=== PATIENT | female | born 1955 | race Caucasian/White ===

== ENCOUNTER 2016-12-23 10:07 | Inpatient (IN) | payer BC ==
[~2016-12-23 10:07] MED LIST: Lidocaine 1%/Sod Bicarbonate in NS 8.4% 1 ML Syringe IV PRN; Morphine 2 MG/ML Syringe IVPUSH PRN; Sodium Chloride 0.9% 10 ML Syringe FLUSH PRN
[2016-12-23] MEDS: Lactated Ringers 1,000 ML IV SCH ×2 (11:20→16:47)
--- NOTE | 2016-12-23 11:21 | PCM.PREANE ---
Preanesthetic Assessment - Anesthesia/Transfusion/Family Hx Anesthesia History: Prior Anesthesia Without Reaction Type of Anesthesia Reaction: Unknown Family History of Anesthesia Reaction: No Transfusion History: No Prior Transfusion(s) Type of Transfusion Reactions: Reports: Unknown Intubation History: Unknown - Review of Systems General: No Symptoms Cardiovascular: Other (HTN controlled with medications ) Gastrointestinal: No symptoms Neurological: No Symptoms, Other (Rheumatiod arthritis- has not seen a filling carrier or take any autoimmune medications. She was just "told i have RA but have not done anything about it") Other: Reports: Liver Problems ("fatty liver"), Thyroid Problems ( hypothyroidism ) - Physical Assessment NPO Status Date: 12/22/16 NPO Status Time: 22:00 Pulse: 73 O2 Sat by Pulse Oximetry: 96 Respiratory Rate: 16 Blood Pressure: 131/75 Temperature: 36.5 C Height: 1.63 m Weight: 80 kg ASA Class: 2 Mental Status: Alert & Oriented x3 Airway Class: Mallampati = 1 Dentition: Reports: Normal Dentition Thyro-Mental Finger Breadths: 3 Mouth Opening Finger Breadths: 3 ROM/Head Extension: Full Lungs: Clear to auscultation, Normal respiratory effort Cardiovascular: Regular Rate, Regular Rhythm - Lab Values: Laboratory Last Values MRSA (PCR) Negative 12/06/16 13:49 - Allergies Allergies/Adverse Reactions: Allergies Allergy/AdvReac Type Severity Reaction Status Date / Time erythromycin base Allergy Drowsiness Verified 12/19/16 16:34 Sulfa (Sulfonamide Allergy urinary Verified 12/19/16 16:34 Antibiotics) urgency - Blood Blood Available: No Product(s) Available: None - Anesthesia Plan Beta Lizett: Metoprolol Med Last Dose Date: 12/23/16 Med Last Dose Time: 08:30 - Acknowledgements Anesthesia Type Planned: Spinal (with duramorph ) Pt an Appropriate Candidate for the Planned Anesthesia: Yes Alternatives and Risks of Anesthesia Discussed w Pt/Guardian: Yes Pt/Guardian Understands and Agrees with Anesthesia Plan: Yes PreAnesthesia Questionnaire HEENT History: Reports: Impaired vision Other HEENT History: wears glasses Cardiovascular History: Reports: Hypertension Respiratory History: Reports: None [employer]ER History: Reports: Other (see below) Other OB/BYN History: breast cyst Musculoskeletal History: Reports: RA Neurological History: Reports: None Psychiatric History: Reports: None Endocrine/Metabolic History: Reports: Hypothyroidism Hematologic History: Reports: None Immunologic History: Reports: None Oncologic (Cancer) History: Reports: None Dermatologic History: Reports: None - Past Surgical History Head Surgeries/Procedures: Reports: None HEENT Surgical History: Reports: Adenoidectomy, Tonsillectomy GI Surgical History: Reports: Colonoscopy, EGD Female Surgical History: Reports: Breast biopsy, D&C, Hysterectomy - SUBSTANCE USE Smoking Status *Q: Never Smoker Second Hand Smoke Exposure: No Recreational Drug Use History: No - HOME MEDS Home Medications: Home Meds Aspirin 81 mg PO DAILY 12/19/16 [History] Celecoxib [CeleBREX] 400 mg PO DAILY 12/19/16 [History] Cinnamon Bark [Cinnamon] 500 mg PO DAILY 12/19/16 [History] Cranberry Conc/C/Bacill Coag [Cranberry Tablet] 1 tab PO DAILY 12/19/16 [History ] Hydrochlorothiazide [Hydrochlorothiazide] 25 mg PO DAILY 12/19/16 [History] Levothyroxine Sodium [Levothyroxine Sodium] 75 mcg PO DAILY 12/19/16 [History] Losartan [Cozaar] 50 mg PO DAILY 12/19/16 [History] MV,Ca,Min/FA/Herbal No.157 [Estroven Max Strength Caplet] 1 tab PO DAILY [History] Metoprolol Succinate 25 mg PO DAILY 12/19/16 [History] Potassium Chloride [Potassium Chloride] 20 meq PO TID 12/19/16 [History] Rosuvastatin [Crestor] 5 mg PO DAILY 12/19/16 [History] Turmeric Root Extract [Turmeric] 500 mg PO DAILY 12/19/16 [History] Ubidecarenone [Coq-10] 100 mg PO DAILY 12/19/16 [History] - CURRENT (IN HOUSE) MEDS Current Meds: Current Medications Aspirin (Ecotrin) 325 mg PO BID [facility] Morphine Sulfate 8 mg/Epinephrine HCl 0.3 mg/Cefuroxime Sodium 750 mg/Ketorolac Tromethamine 30 mg/Sodium Chloride 27.9 ml 0 mg .XX ONETIME ONE Stop: 12/23/16 12:31 Cyclobenzaprine HCl (Flexeril) 10 mg PO TID PRN PRN Reason: Spasms Famotidine (Pepcid) 20 mg PO Q12H [facility] Lactated Ringer's (Ringers, Lactated) 1,000 mls @ 125 mls/hr IV ASDIRECTED REPLACED BY [facility] Lidocaine/Sodium Bicarbonate (Buffered Lidocaine 1% In Ns 8.4%) 0.25 ml IV ONETIME PRN PRN Reason: Prior to IV Start Stop: 12/23/16 18:00 Morphine Sulfate (Morphine) 2 mg IVPUSH Q2H PRN PRN Reason: Breakthrough Pain Multivitamins (Thera) 1 each PO WITHBREAKFAST REPLACED BY [facility] Naloxone HCl (Narcan) 0.1 mg IVPUSH Q5M PRN PRN Reason: Oversedation Stop: 12/23/16 13:46 Oxycodone/Acetaminophen (Percocet 325-5 Mg) 1 - 2 tab PO Q4H PRN PRN Reason: Pain Sodium Chloride (Saline Flush) 10 ml FLUSH ASDIRECTED PRN PRN Reason: Keep Vein Open
[2016-12-23] MEDS ORDERED: Midazolam 1 MG/ML 2 ML SDV ONE (11:56)
[2016-12-23] MEDS ORDERED: Ondansetron 4 MG/2 ML SDV ONE (11:56)
[2016-12-23] MEDS ORDERED: Propofol 200 MG/20 ML SDV ONE ×3 (11:56→13:54)
[2016-12-23] MEDS ORDERED: fentaNYL 250 MCG/5 ML SDV ONE (11:56)
[2016-12-23] MEDS ORDERED: Morphine PF 10 MG/10 ML SDV ONE (11:57)
[2016-12-23] MEDS ORDERED: fentaNYL 100 MCG/2 ML SDV ONE (11:57)
[2016-12-23] MEDS ORDERED: Sodium Chloride 0.9% 10 ML ONE (12:05)
[2016-12-23] MEDS ORDERED: Lactated Ringers 1,000 ML ONE ×2 (12:05→14:00)
[2016-12-23] MEDS ORDERED: ceFAZolin 1 GM Vial ONE ×2 (12:05)
[2016-12-23] MEDS ORDERED: Phenylephrine/Normal Saline 100 MCG/ML 10 ML Syringe ONE ×2 (13:23→14:14)
[2016-12-23] MEDS ORDERED: Naloxone 0.4 MG/ML SDV IVPUSH PRN (13:30)
[2016-12-23] MEDS ORDERED: diphenhydrAMINE 50 MG/ML SDV IVPUSH PRN (13:39)
[2016-12-23] MEDS ORDERED: Ondansetron 4 MG/2 ML SDV IVPUSH PRN (13:39)
[2016-12-23] MEDS ORDERED: fentaNYL 100 MCG/2 ML SDV IVPUSH PRN (13:39)
[2016-12-23] MEDS: Iodine/Sodium Iodide 2% Tincture 30 ML Bottle ONE ×2 (13:48→14:02)
[2016-12-23] MEDS: ceFAZolin 1 GM Vial ONE ×2 (13:49→14:07)
[2016-12-23] MEDS: Morphine 8 MG, EPINEPHrine 0.3 MG, Cefuroxime 750 MG, Ketorolac 30 MG, Sodium Chloride ... ONE ×10 (13:50→14:11)
[2016-12-23] MEDS: Bupivacaine 0.25% 30 ML SDV ONE ×2 (13:56→14:11)
[2016-12-23] MEDS ORDERED: HYDROmorphone 0.5 MG/0.5 ML Syringe IVPUSH PRN (14:30)
[2016-12-23] MEDS ORDERED: ePHEDrine/Normal Saline 25 MG/5 ML Syringe ONE (14:43)
--- NOTE | 2016-12-23 14:54 | PCM.POSTAN ---
POST ANESTHESIA ASSESSMENT - MENTAL STATUS Mental Status: alert, oriented - VITAL SIGNS Pulse Rate: 88 SaO2: 95 Resp Rate: 16 Blood Pressure: 94/54 Temperature: 36.9 C - RESPIRATORY Respiratory Status: respiratory rate WNL, airway patent, O2 saturation stable - CARDIOVASCULAR CV Status: pulse rate WNL, blood pressure stable - GASTROINTESTINAL GI Status: no symptoms - PAIN Pain Score: 0 - POST OP HYDRATION Hydration Status: adequate & stable
--- NOTE | 2016-12-23 15:17 | CR ---
Right knee: AP and lateral views of the right knee were obtained. Comparison: No previous study. Knee prosthesis is seen. Components are aligned. There is air seen within the joint and within the soft tissues. Underlying bony structures are intact. Impression: 1. Satisfactory postop radiographic appearance of recently placed right knee prosthesis. Diagnostic code #2
--- NOTE | 2016-12-23 17:06 | PCM.CONSN ---
[id number] hypertension, hypothyroid has had complaint of right knee pain, she is post op RTKA. She has no complaints post op. Functional Status: Reports: pain controlled, tolerating diet, urinating - Review of Systems General: Reports: No Symptoms HEENT: Reports: no symptoms Pulmonary: Reports: no symptoms Cardiovascular: Reports: No Symptoms Gastrointestinal: Reports: No symptoms Genitourinary: Reports: no symptoms Musculoskeletal: Reports: no symptoms Skin: Reports: no symptoms Neurological: Reports: No Symptoms Psychiatric: Reports: no symptoms - Patient Data Vitals - most recent: Last Vital Signs Temp 36.2 C 12/23/16 15:55 Pulse 79 12/23/16 15:42 Resp 14 12/23/16 15:55 BP 101/78 12/23/16 16:30 Pulse Ox 97 12/23/16 16:33 Weight - most recent: 80 kg I&O - last 24 hours: Intake & Output 12/23/16 12/23/16 12/23/16 06:59 14:59 22:59 Intake Total 300 Output Total 255 150 Balance -255 150 Med Orders - Current: Current Medications Aspirin (Ecotrin) 325 mg PO BID [facility] Cyclobenzaprine HCl (Flexeril) 10 mg PO TID PRN PRN Reason: Spasms Diphenhydramine HCl (Benadryl) 25 mg IVPUSH Q6H PRN PRN Reason: itching Stop: 12/23/16 20:00 Famotidine (Pepcid) 20 mg PO Q12H [facility] Hydrochlorothiazide (Hydrochlorothiazide) 25 mg PO DAILY [facility] Lactated Ringer's (Ringers, Lactated) 1,000 mls @ 125 mls/hr IV ASDIRECTED [facility] Last Admin: 12/23/16 16:47 Dose: 125 mls/hr Levothyroxine Sodium (Levothyroxine) 75 mcg PO DAILY [facility] Losartan Potassium (Cozaar) 50 mg PO DAILY [facility] Metoprolol Succinate (Toprol Xl) 25 mg PO DAILY [facility] Morphine Sulfate (Morphine) 2 mg IVPUSH Q2H PRN PRN Reason: Breakthrough Pain Multivitamins (Thera) 1 each PO WITHBREAKFAST [facility] Ondansetron HCl (Zofran) 4 mg IVPUSH ONETIME PRN PRN Reason: Nausea/Vomiting Stop: 12/23/16 18:00 Oxycodone/Acetaminophen (Percocet 325-5 Mg) 1 - 2 tab PO Q4H PRN PRN Reason: Pain Mv,Ca,Min/Fa/Herbal No.157 [Estroven Max Strength Caplet] 0 each PO DAILY [facility] Ubidecarenone 100 Mg 0 each PO DAILY [facility] Potassium Chloride (Klor-Con M20) 20 meq PO TID [facility] Rosuvastatin Calcium (Crestor) 5 mg PO DAILY [facility] Sodium Chloride (Saline Flush) 10 ml FLUSH ASDIRECTED PRN PRN Reason: Keep Vein Open Discontinued Medications Bupivacaine HCl (Marcaine 0.25%) Confirm Administered Dose 30 ml .ROUTE .STK- MED ONE Stop: 12/23/16 11:11 Last Admin: 12/23/16 14:11 Dose: 30 ml Cefazolin Sodium (Ancef) Confirm Administered Dose 2 gm .ROUTE .STK-MED ONE Stop: 12/23/16 11:10 Last Admin: 12/23/16 14:07 Dose: 2 gm Cefazolin Sodium (Ancef) Confirm Administered Dose 1 gm .ROUTE .STK-MED ONE Stop: 12/23/16 12:06 Cefazolin Sodium (Ancef) Confirm Administered Dose 1 gm .ROUTE .STK-MED ONE Stop: 12/23/16 12:06 Morphine Sulfate 8 mg/Epinephrine HCl 0.3 mg/Cefuroxime Sodium 750 mg/Ketorolac Tromethamine 30 mg/Sodium Chloride 27.9 ml 0 mg .XX ONETIME ONE Stop: 12/23/16 12:31 Last Admin: 12/23/16 14:11 Dose: 788.3 mg Ephedrine Sulfate (Ephedrine In Ns) Confirm Administered Dose 25 mg .ROUTE .STK- MED ONE Stop: 12/23/16 14:44 Fentanyl (Sublimaze) Confirm Administered Dose 250 mcg .ROUTE .STK-MED ONE Stop: 12/23/16 11:57 Fentanyl (Sublimaze) Confirm Administered Dose 100 mcg .ROUTE .STK-MED ONE Stop: 12/23/16 11:58 Fentanyl (Sublimaze) 50 mcg IVPUSH Q5M PRN PRN Reason: pain Stop: 12/23/16 20:00 Hydromorphone HCl (Dilaudid) 0.5 mg IVPUSH Q15M PRN PRN Reason: Pain (severe 7-10) Stop: 12/23/16 14:46 Sodium Chloride (Normal Saline) Confirm Administered Dose 10 mls @ as directed .ROUTE .STK-MED ONE Stop: 12/23/16 12:06 Lactated Ringer's (Ringers, Lactated) Confirm Administered Dose 1,000 mls @ as directed .ROUTE .STK-MED ONE Stop: 12/23/16 12:06 Lactated Ringer's (Ringers, Lactated) Confirm Administered Dose 1,000 mls @ as directed .ROUTE .STK-MED ONE Stop: 12/23/16 14:01 Iodine (Iodine 2% Mild Tincture) Confirm Administered Dose 30 ml .ROUTE .STK- MED ONE Stop: 12/23/16 11:10 Last Admin: 12/23/16 14:02 Dose: 18 ml Lidocaine/Sodium Bicarbonate (Buffered Lidocaine 1% In Ns 8.4%) 0.25 ml IV ONETIME PRN PRN Reason: Prior to IV Start Stop: 12/23/16 18:00 Last Admin: 12/23/16 11:20 Dose: 0.25 ml Midazolam HCl (Versed 1 Mg/Ml) Confirm Administered Dose 2 mg .ROUTE .STK-MED ONE Stop: 12/23/16 11:57 Morphine Sulfate (Duramorph Pf) Confirm Administered Dose 10 mg .ROUTE .STK-MED ONE Stop: 12/23/16 11:58 Naloxone HCl (Narcan) 0.1 mg IVPUSH Q5M PRN PRN Reason: Oversedation Stop: 12/23/16 13:46 Ondansetron HCl (Zofran) Confirm Administered Dose 4 mg .ROUTE .STK-MED ONE Stop: 12/23/16 11:57 Phenylephrine HCl (Phenylephrine In Ns 100 Mcg/Ml) Confirm Administered Dose 1 mg .ROUTE .STK-MED ONE Stop: 12/23/16 13:24 Phenylephrine HCl (Phenylephrine In Ns 100 Mcg/Ml) Confirm Administered Dose 1 mg .ROUTE .STK-MED ONE Stop: 12/23/16 14:15 Propofol (Diprivan 20 Ml) Confirm Administered Dose 200 mg .ROUTE .STK-MED ONE Stop: 12/23/16 11:57 Propofol (Diprivan 20 Ml) Confirm Administered Dose 200 mg .ROUTE .STK-MED ONE Stop: 12/23/16 12:04 Propofol (Diprivan 20 Ml) Confirm Administered Dose 200 mg .ROUTE .STK-MED ONE Stop: 12/23/16 13:55 Tranexamic Acid (Cyklokapron) Confirm Administered Dose 1,000 mg .ROUTE .STK- MED ONE Stop: 12/23/16 11:10 Last Admin: 12/23/16 14:19 Dose: 1,000 mg - Exam Quality Assessment: urine catheter, DVT prophylaxis General: alert, oriented, cooperative, no acute distress HEENT: Pupils equal, Pupils reactive Neck: supple, trachea midline Lungs: Normal respiratory effort Cardiovascular: Regular Rate, Regular Rhythm Abdomen: bowel sounds present, soft, no tenderness, no distension (Female) Exam: Deferred Extremities: normal pulses Skin: warm Wound/Incisions: dressing dry and intact Neurological: no new focal deficit, normal speech Psy/Mental Status: alert, normal affect, normal mood Consult PN Assessment/Plan Procedures: Procedures CULTURE AEROBIC IDENTIFY (08/19/14) HEPATOBIL SYST IMAGE W/DRUG (02/01/15) MICROBE SUSCEPTIBLE LACI (08/19/14) URINALYSIS AUTO W/O SCOPE (02/15/15) URINE BACTERIA CULTURE (08/19/14) (1) HTN (hypertension) SNOMED Code(s): 27173592 Code(s): I10 - ESSENTIAL (PRIMARY) HYPERTENSION Priority: Medium Qualifiers: Hypertension type: essential hypertension Qualified Code(s): I10 - Essential (primary) hypertension (2) Hypothyroid SNOMED Code(s): 75238622 Code(s): E03.9 - HYPOTHYROIDISM, UNSPECIFIED Priority: Medium Qualifiers: Hypothyroidism type: unspecified Qualified Code(s): E03.9 - Hypothyroidism , unspecified (3) Osteoarthritis SNOMED Code(s): 976616764 Code(s): M19.90 - UNSPECIFIED OSTEOARTHRITIS, UNSPECIFIED SITE Priority: High Qualifiers: Osteoarthritis location: knee Osteoarthritis type: primary Laterality: right Qualified Code(s): M17.11 - Unilateral primary osteoarthritis, right knee (4) S/P total knee arthroplasty SNOMED Code(s): 5310595042368, 568692875, 7660322889123 Code(s): Z96.659 - PRESENCE OF UNSPECIFIED ARTIFICIAL KNEE JOINT Priority: High Qualifiers: Laterality: right Qualified Code(s): Z96.651 - Presence of right artificial knee joint Problem List Initiated/Reviewed/Updated: Yes Plan: Impression: Right knee osteoarthritis S/P right total knee arthroplasty Chronic Hypertension Hypothyroidism Plan: Pain mgt per Ortho Home meds DVT per Ortho PT/OT post op care
[2016-12-23] MEDS: ceFAZolin 2 GM in Premix Bag 1 BAG IV SCH (19:20)
[2016-12-23] MEDS: [UNRECOGNIZED DRUG - OTHER] PO SCH (21:40)
[2016-12-23] MEDS: Famotidine 20 MG Tab PO SCH (21:40)
[2016-12-24] MEDS: Acetaminophen/oxyCODONE 325-5 MG Tab PO PRN ×4 (00:27→12:43)
[2016-12-24] MEDS: ceFAZolin 2 GM in Premix Bag 1 BAG IV SCH ×2 (03:17→10:45)
[2016-12-24] MEDS ORDERED: LEVOTHYROXINE 75 MCG PO SCH (06:00)
--- NOTE | 2016-12-24 06:15 | PCM.CONSN ---
- General Info Date of Service: 12/24/16 Admission Dx/Problem (Free Text): S/P Rt TKA with Dr. Gomez, POD #1 Doing well, pain controlled, mild nausea but resolved VSS Functional Status: Reports: pain controlled, tolerating diet, ambulating ( working with PT), urinating (jauregui cath to be pulled this am). Denies: new symptoms - Review of Systems General: Reports: No Symptoms HEENT: Reports: no symptoms Pulmonary: Reports: no symptoms Cardiovascular: Reports: No Symptoms Gastrointestinal: Reports: No symptoms Genitourinary: Reports: no symptoms Musculoskeletal: Reports: leg pain Skin: Reports: no symptoms Neurological: Reports: No Symptoms Psychiatric: Reports: no symptoms - Patient Data Vitals - most recent: Last Vital Signs Temp 98.2 F 12/24/16 04:00 Pulse 72 12/24/16 04:00 Resp 15 12/24/16 06:00 BP 122/73 12/24/16 04:00 Pulse Ox 100 12/24/16 06:00 Weight - most recent: 176 lb 5.917 oz I&O - last 24 hours: Intake & Output 12/23/16 12/23/16 12/24/16 14:59 22:59 06:59 Intake Total 300 1150 Output Total 255 210 600 Balance -255 90 550 Med Orders - Current: Current Medications Cyclobenzaprine HCl (Flexeril) 10 mg PO TID PRN PRN Reason: Spasms Famotidine (Pepcid) 20 mg PO Q12H [facility] Last Admin: 12/23/16 21:40 Dose: Not Given Cefazolin Sodium/Dextrose 2 gm (/ Premix) 50 mls @ 100 mls/hr IV Q8H [facility] Stop: 12/24/16 11:29 Last Admin: 12/24/16 03:17 Dose: 100 mls/hr Morphine Sulfate (Morphine) 2 mg IVPUSH Q2H PRN PRN Reason: Breakthrough Pain Multivitamins (Thera) 1 each PO WITHBREAKFAST [facility] Last Admin: 12/24/16 06:00 Dose: 1 each Oxycodone/Acetaminophen (Percocet 325-5 Mg) 1 - 2 tab PO Q4H PRN PRN Reason: Pain Last Admin: 12/24/16 04:19 Dose: 2 tab Aspirin 81 Mg Tab. (Ec) 0 each PO BID [facility] Losartan 50 Mg Tab 0 each PO DAILY [facility] Mv,Ca,Min/Fa/Herbal No.157 [Estroven Max Strength Caplet] 0 each PO DAILY [facility] Rosuvastatin 5 Mg (Tab) 0 each PO DAILY [facility] Ubidecarenone 100 Mg 0 each PO DAILY [facility] Hydrochlorothiazide (25 Mg Tab) 0 each PO DAILY [facility] Levothyroxine 75 Mcg 0 each PO ACBREAKFAST [facility] Last Admin: 12/24/16 05:28 Dose: 1 each Metoprolol Succinate (25 Mg Tab.Er) 0 each PO DAILY [facility] K Tabs 10 Meq Tab. (Er) 0 each PO TID [facility] Last Admin: 12/23/16 21:40 Dose: Not Given Discontinued Medications Bupivacaine HCl (Marcaine 0.25%) Confirm Administered Dose 30 ml .ROUTE .STK- MED ONE Stop: 12/23/16 11:11 Last Admin: 12/23/16 14:11 Dose: 30 ml Cefazolin Sodium (Ancef) Confirm Administered Dose 2 gm .ROUTE .STK-MED ONE Stop: 12/23/16 11:10 Last Admin: 12/23/16 14:07 Dose: 2 gm Cefazolin Sodium (Ancef) Confirm Administered Dose 1 gm .ROUTE .STK-MED ONE Stop: 12/23/16 12:06 Cefazolin Sodium (Ancef) Confirm Administered Dose 1 gm .ROUTE .STK-MED ONE Stop: 12/23/16 12:06 Morphine Sulfate 8 mg/Epinephrine HCl 0.3 mg/Cefuroxime Sodium 750 mg/Ketorolac Tromethamine 30 mg/Sodium Chloride 27.9 ml 0 mg .XX ONETIME ONE Stop: 12/23/16 12:31 Last Admin: 12/23/16 14:11 Dose: 788.3 mg Diphenhydramine HCl (Benadryl) 25 mg IVPUSH Q6H PRN PRN Reason: itching Stop: 12/23/16 20:00 Ephedrine Sulfate (Ephedrine In Ns) Confirm Administered Dose 25 mg .ROUTE .STK- MED ONE Stop: 12/23/16 14:44 Fentanyl (Sublimaze) Confirm Administered Dose 250 mcg .ROUTE .STK-MED ONE Stop: 12/23/16 11:57 Fentanyl (Sublimaze) Confirm Administered Dose 100 mcg .ROUTE .STK-MED ONE Stop: 12/23/16 11:58 Fentanyl (Sublimaze) 50 mcg IVPUSH Q5M PRN PRN Reason: pain Stop: 12/23/16 20:00 Hydromorphone HCl (Dilaudid) 0.5 mg IVPUSH Q15M PRN PRN Reason: Pain (severe 7-10) Stop: 12/23/16 14:46 Lactated Ringer's (Ringers, Lactated) 1,000 mls @ 125 mls/hr IV ASDIRECTED [facility] Stop: 12/23/16 23:00 Last Admin: 12/23/16 16:47 Dose: 125 mls/hr Sodium Chloride (Normal Saline) Confirm Administered Dose 10 mls @ as directed .ROUTE .STK-MED ONE Stop: 12/23/16 12:06 Lactated Ringer's (Ringers, Lactated) Confirm Administered Dose 1,000 mls @ as directed .ROUTE .STK-MED ONE Stop: 12/23/16 12:06 Lactated Ringer's (Ringers, Lactated) Confirm Administered Dose 1,000 mls @ as directed .ROUTE .STK-MED ONE Stop: 12/23/16 14:01 Iodine (Iodine 2% Mild Tincture) Confirm Administered Dose 30 ml .ROUTE .STK- MED ONE Stop: 12/23/16 11:10 Last Admin: 12/23/16 14:02 Dose: 18 ml Lidocaine/Sodium Bicarbonate (Buffered Lidocaine 1% In Ns 8.4%) 0.25 ml IV ONETIME PRN PRN Reason: Prior to IV Start Stop: 12/23/16 18:00 Last Admin: 12/23/16 11:20 Dose: 0.25 ml Midazolam HCl (Versed 1 Mg/Ml) Confirm Administered Dose 2 mg .ROUTE .STK-MED ONE Stop: 12/23/16 11:57 Morphine Sulfate (Duramorph Pf) Confirm Administered Dose 10 mg .ROUTE .STK-MED ONE Stop: 12/23/16 11:58 Naloxone HCl (Narcan) 0.1 mg IVPUSH Q5M PRN PRN Reason: Oversedation Stop: 12/23/16 13:46 Ondansetron HCl (Zofran) Confirm Administered Dose 4 mg .ROUTE .STK-MED ONE Stop: 12/23/16 11:57 Ondansetron HCl (Zofran) 4 mg IVPUSH ONETIME PRN PRN Reason: Nausea/Vomiting Stop: 12/23/16 18:00 Last Admin: 12/23/16 18:01 Dose: 4 mg Phenylephrine HCl (Phenylephrine In Ns 100 Mcg/Ml) Confirm Administered Dose 1 mg .ROUTE .STK-MED ONE Stop: 12/23/16 13:24 Phenylephrine HCl (Phenylephrine In Ns 100 Mcg/Ml) Confirm Administered Dose 1 mg .ROUTE .STK-MED ONE Stop: 12/23/16 14:15 Propofol (Diprivan 20 Ml) Confirm Administered Dose 200 mg .ROUTE .STK-MED ONE Stop: 12/23/16 11:57 Propofol (Diprivan 20 Ml) Confirm Administered Dose 200 mg .ROUTE .STK-MED ONE Stop: 12/23/16 12:04 Propofol (Diprivan 20 Ml) Confirm Administered Dose 200 mg .ROUTE .STK-MED ONE Stop: 12/23/16 13:55 Sodium Chloride (Saline Flush) 10 ml FLUSH ASDIRECTED PRN PRN Reason: Keep Vein Open Tranexamic Acid (Cyklokapron) Confirm Administered Dose 1,000 mg .ROUTE .STK- MED ONE Stop: 12/23/16 11:10 Last Admin: 12/23/16 14:19 Dose: 1,000 mg - Exam Quality Assessment: supplemental oxygen, DVT prophylaxis General: alert, oriented, cooperative, no acute distress HEENT: Pupils equal, Pupils reactive, EOMI, Mucous membr. moist/pink Neck: supple Lungs: Clear to auscultation, Normal respiratory effort Cardiovascular: Regular Rate, Regular Rhythm, No Murmurs Abdomen: bowel sounds present, soft, no tenderness, no distension (Female) Exam: Deferred Extremities: no edema, other (teds, scd's, ice to knee) Peripheral Pulses: 1+: dorsalis pedis (L), dorsalis pedis (R) Skin: warm, dry, intact Neurological: no new focal deficit Psy/Mental Status: alert, normal affect, normal mood Consult PN Assessment/Plan POD#: 1 Procedures: Procedures CULTURE AEROBIC IDENTIFY (08/19/14) HEPATOBIL SYST IMAGE W/DRUG (02/01/15) MICROBE SUSCEPTIBLE LACI (08/19/14) URINALYSIS AUTO W/O SCOPE (02/15/15) URINE BACTERIA CULTURE (08/19/14) (1) S/P total knee arthroplasty SNOMED Code(s): 8961415528166, 031229499, 5935613764860 Code(s): Z96.659 - PRESENCE OF UNSPECIFIED ARTIFICIAL KNEE JOINT Priority: High Current Visit: Yes Qualifiers: Laterality: right Qualified Code(s): Z96.651 - Presence of right artificial knee joint (2) Osteoarthritis SNOMED Code(s): 139581872 Code(s): M19.90 - UNSPECIFIED OSTEOARTHRITIS, UNSPECIFIED SITE Priority: High Current Visit: Yes Qualifiers: Osteoarthritis location: knee Osteoarthritis type: primary Laterality: right Qualified Code(s): M17.11 - Unilateral primary osteoarthritis, right knee (3) HTN (hypertension) SNOMED Code(s): 70402824 Code(s): I10 - ESSENTIAL (PRIMARY) HYPERTENSION Priority: Medium Current Visit: No Qualifiers: Hypertension type: essential hypertension Qualified Code(s): I10 - Essential (primary) hypertension (4) Hypothyroid SNOMED Code(s): 86994472 Code(s): E03.9 - HYPOTHYROIDISM, UNSPECIFIED Priority: Medium Current Visit: No Qualifiers: Hypothyroidism type: unspecified Qualified Code(s): E03.9 - Hypothyroidism , unspecified Problem List Initiated/Reviewed/Updated: Yes Plan: S/P Rt TKA with Dr. Gomez; POD #1 -Pain management and DVT prophylax per primary team/Ortho -PT/OT -VSS -Hgb this am 11.9; K+ 3.2- 20meq PO replacement orders put in -Doing well Other chronic conditions: stable -HTN- controlled, cont home meds -hypothyroid- cont home meds -hx of breast ca Other: CM/SW for assist with DC planning Patient is Full Code OK for DC today from Hospitalist standpoint, doing well.
--- NOTE | 2016-12-24 06:55 | PCM.OPNOTE ---
- General Post-Op/Procedure Note Date of Surgery/Procedure: 12/23/16 Operative Procedure(s): right total knee arthroplasty Pre Op Diagnosis: right knee osteoarthrosis Post-Op Diagnosis: Same Anesthesia Technique: Local, MAC, Spinal Primary Surgeon: Juan J Gomez Anesthesia Provider: Fela Arrington Vegetable Worker: Ani Chandler Vegetable Worker: Jennifer Donato EBL in mLs: 450 Complications: None Condition: Good Free Text/Narrative:: Intake & Output 12/23/16 12/23/16 12/24/16 14:59 22:59 06:59 Intake Total 300 1150 Output Total 255 210 600 Balance -255 90 550
[2016-12-24] MEDS ORDERED: Multivitamins,Therapeutic Tab PO SCH (07:00)
--- NOTE | 2016-12-24 07:26 | OR ---
DATE OF OPERATION: 12/23/2016 SURGEON: Juan J Gomez MD OPERATION PERFORMED: Right total knee arthroplasty. PREOPERATIVE DIAGNOSIS: Right knee osteoarthrosis. POSTOPERATIVE DIAGNOSIS: Right knee osteoarthrosis. ANESTHESIA: Local MAC with spinal. ANESTHESIA PROVIDER: Fela Arrington CRNA SCREEN PRINTER HELPER: Ani Chandler PA-C and Alton Donato M.D. ESTIMATED BLOOD LOSS: 450 mL COMPLICATIONS: None. CONDITION: Stable. IMPLANTS: 1. [place] size 4 PS femur. 2. [place] size 3 [place] tibial baseplate. 3. [place] size 3 of 9 mm PS X3 polyethylene. 4. [place] 29 x 9 mm asymmetric patella. DESCRIPTION OF PROCEDURE: The patient was identified in the preop holding area. Proper site was marked and identified by the surgeon. The patient was taken back to the operating theater. After adequate anesthesia, the patient's right lower extremity had a nonsterile tourniquet applied and it was then sterilely prepped and draped in the usual sterile fashion. OR timeout was performed. The patient received 2 g IV Ancef. At this time, right lower extremity was exsanguinated. Tourniquet was insufflated to 300 mmHg. Standard medial parapatellar incision was made. Medial parapatellar arthrotomy was created. Deep fibers of the MCL were raised and anterior fat pad was resected. At this time, attention was turned to the patella. Patella measured 22, it was resected to a 13 for a 29 x 9 mm patella. Drill holes were then drilled and found to be in adequate position. The drill was then drilled in the distal femur and the intramedullary distal femoral cutting guide was then placed. At 8 mm, it was resected off the distal femur that a 9 mm trial spacer was used and found to be an adequate resection. Sizing guide was placed. It was found to be a size 4 PS femur that was shown on the implant record at the beginning of this dictation. The drill holes were drilled for the epicondylar axis using [place] line and epicondyles as reference. At this time, the 4-in-1 cutting block was placed. An anterior posterior and anterior and posterior chamfer cuts were then completed. The correct size box cut was then placed and the box cut was completed and found to be an adequate resection. Attention was turned to the tibia. The posterior medial lateral retractors were placed. The extramedullary tibial guide was placed. It was placed in the old footprint of the ACL. It was aligned with the center of the ankle and 0 degrees of slope, 9 mm was then resected off the unaffected lateral side. There was found to be an acceptable reduction. At this time, posterior osteophytes were removed along with medial and lateral meniscus. A trial implant was placed with a correct sized tibia that was mentioned at the beginning of the dictation. A 9 mm X3 polyethylene was then placed. The patient's knee was brought through range of motion. The patella was tracking centrally and was stable to varus and valgus stress. Alignment was found to be roughly at 0 degrees. At this time, cement was mixed on the back table. The tibia was stamped and drilled in proper rotation. All cut surfaces were irrigated with pulse lavage irrigation with Ancef and then completely dried. Once this was completed, then the cement was ready. The universal tibial base plate was cemented in place. Next, the 4 PS femur cemented into place and the 9 mm X3 polyethylene was placed. The patient's knee was brought into full extension. Excess cement was removed. The patella was then cemented in place at this time. Tourniquet was deflated. One liter dilute Betadine solution was irrigated through the knee along with 3 L of pulse lavage irrigation with Ancef. Periarticular injection was then completed. The patient's knee was brought through a range of motion. Once the cement had time to set up and it was found to be stable to varus valgus stress, the patella was tracking centrally with full range of motion. At this time, a #2 barbed suture was used for closure of the medial parapatellar arthrotomy. Topical tranexamic acid was placed. 2-0 Vicryl was used subcutaneously, a running 3-0 Monocryl was used subcuticularly. The patient tolerated the procedure well and was sent to the PACU in stable condition. ANTHONY /[id number]
[2016-12-24] MEDS: Cyclobenzaprine 10 MG Tab PO PRN ×2 (08:38→17:06)
--- NOTE | 2016-12-24 08:56 | PCM48HPAN ---
Post Anesthesia Note - EVALUATION WITHIN 48HRS OF ANESTHETIC Vital Signs in Normal Range: Yes Patient Participated in Evaluation: Yes Respiratory Function Stable: Yes Airway Patent: Yes Cardiovascular Function Stable: Yes Hydration Status Stable: Yes Pain Control Satisfactory: Yes Nausea and Vomiting Control Satisfactory: Yes Mental Status Recovered: Yes - COMMENTS/OBSERVATIONS Free Text/Narrative:: Patient expresses satisfaction with Spinal anesthesia, and pain control. Patient did have some pruitis, and nausea yesterday. Patient did express some questions related to her delayed ambulation upon coming to the floor. Patient states at this time decreased blood pressure and some dizziness was noted, and therefore that was potentially the reason for the delayed ambulation.
[2016-12-24] MEDS ORDERED: Aspirin 81 MG Tab.EC PO SCH (09:00)
[2016-12-24] MEDS ORDERED: Hydrochlorothiazide 25 MG TAB PO SCH (09:00)
[2016-12-24] MEDS ORDERED: [UNRECOGNIZED DRUG - REMARK] PO SCH (09:00)
[2016-12-24] MEDS ORDERED: METOPROLOL SUCCINATE 25 MG PO SCH (09:00)
[2016-12-24] MEDS ORDERED: Rosuvastatin 5 MG Tab PO SCH (09:00)
[2016-12-24] MEDS ORDERED: Losartan 50 MG Tab PO SCH (09:00)
[2016-12-24] MEDS ORDERED: Potassium Chloride 20 MEQ Tab.ER PO ONE (09:19)
[2016-12-24] MEDS: Famotidine 20 MG Tab PO SCH (10:17)
[2016-12-24] MEDS: [UNRECOGNIZED DRUG - OTHER] PO SCH ×2 (10:20→17:10)
[2016-12-24 12:47] VITALS: BP 139/72
[2016-12-24] MEDS ORDERED: Ketorolac 10 MG Tab PO ONE (14:00)
[2016-12-24] MEDS ORDERED: Aspirin 325 MG Tab.EC PO SCH (21:00)
--- NOTE | 2017-01-02 17:59 | PCM.SURGPN ---
- General Info Date of Service: 12/24/16 POD#: 1 Functional Status: Reports: pain controlled, tolerating diet, ambulating, urinating. Denies: new symptoms - Review of Systems Musculoskeletal: Reports: other (The pt feels prepared for discharge to home.) - Patient Data Vitals - most recent: Last Vital Signs Temp 99.8 F 12/24/16 12:00 Pulse 74 12/24/16 12:00 Resp 16 12/24/16 19:00 BP 139/72 12/24/16 12:00 Pulse Ox 92 L 12/24/16 19:00 Weight - most recent: 176 lb 5.917 oz Med Orders - Current: Current Medications Discontinued Medications Aspirin (Ecotrin) 325 mg PO BID [facility] Bupivacaine HCl (Marcaine 0.25%) Confirm Administered Dose 30 ml .ROUTE .STK- MED ONE Stop: 12/23/16 11:11 Last Admin: 12/23/16 14:11 Dose: 30 ml Cefazolin Sodium (Ancef) Confirm Administered Dose 2 gm .ROUTE .STK-MED ONE Stop: 12/23/16 11:10 Last Admin: 12/23/16 14:07 Dose: 2 gm Cefazolin Sodium (Ancef) Confirm Administered Dose 1 gm .ROUTE .STK-MED ONE Stop: 12/23/16 12:06 Cefazolin Sodium (Ancef) Confirm Administered Dose 1 gm .ROUTE .STK-MED ONE Stop: 12/23/16 12:06 Morphine Sulfate 8 mg/Epinephrine HCl 0.3 mg/Cefuroxime Sodium 750 mg/Ketorolac Tromethamine 30 mg/Sodium Chloride 27.9 ml 0 mg .XX ONETIME ONE Stop: 12/23/16 12:31 Last Admin: 12/23/16 14:11 Dose: 788.3 mg Cyclobenzaprine HCl (Flexeril) 10 mg PO TID PRN PRN Reason: Spasms Last Admin: 12/24/16 17:06 Dose: 10 mg Diphenhydramine HCl (Benadryl) 25 mg IVPUSH Q6H PRN PRN Reason: itching Stop: 12/23/16 20:00 Ephedrine Sulfate (Ephedrine In Ns) Confirm Administered Dose 25 mg .ROUTE .STK- MED ONE Stop: 12/23/16 14:44 Famotidine (Pepcid) 20 mg PO Q12H [facility] Last Admin: 12/24/16 10:17 Dose: Not Given Fentanyl (Sublimaze) Confirm Administered Dose 250 mcg .ROUTE .STK-MED ONE Stop: 12/23/16 11:57 Fentanyl (Sublimaze) Confirm Administered Dose 100 mcg .ROUTE .STK-MED ONE Stop: 12/23/16 11:58 Fentanyl (Sublimaze) 50 mcg IVPUSH Q5M PRN PRN Reason: pain Stop: 12/23/16 20:00 Hydromorphone HCl (Dilaudid) 0.5 mg IVPUSH Q15M PRN PRN Reason: Pain (severe 7-10) Stop: 12/23/16 14:46 Lactated Ringer's (Ringers, Lactated) 1,000 mls @ 125 mls/hr IV ASDIRECTED [facility] Stop: 12/23/16 23:00 Last Admin: 12/23/16 16:47 Dose: 125 mls/hr Sodium Chloride (Normal Saline) Confirm Administered Dose 10 mls @ as directed .ROUTE .STK-MED ONE Stop: 12/23/16 12:06 Lactated Ringer's (Ringers, Lactated) Confirm Administered Dose 1,000 mls @ as directed .ROUTE .STK-MED ONE Stop: 12/23/16 12:06 Lactated Ringer's (Ringers, Lactated) Confirm Administered Dose 1,000 mls @ as directed .ROUTE .STK-MED ONE Stop: 12/23/16 14:01 Cefazolin Sodium/Dextrose 2 gm (/ Premix) 50 mls @ 100 mls/hr IV Q8H [facility] Stop: 12/24/16 11:29 Last Admin: 12/24/16 10:45 Dose: 100 mls/hr Iodine (Iodine 2% Mild Tincture) Confirm Administered Dose 30 ml .ROUTE .STK- MED ONE Stop: 12/23/16 11:10 Last Admin: 12/23/16 14:02 Dose: 18 ml Ketorolac Tromethamine (Toradol) 15 mg PO ONETIME ONE Stop: 12/24/16 14:01 Last Admin: 12/24/16 14:39 Dose: 15 mg Lidocaine/Sodium Bicarbonate (Buffered Lidocaine 1% In Ns 8.4%) 0.25 ml IV ONETIME PRN PRN Reason: Prior to IV Start Stop: 12/23/16 18:00 Last Admin: 12/23/16 11:20 Dose: 0.25 ml Midazolam HCl (Versed 1 Mg/Ml) Confirm Administered Dose 2 mg .ROUTE .STK-MED ONE Stop: 12/23/16 11:57 Morphine Sulfate (Morphine) 2 mg IVPUSH Q2H PRN PRN Reason: Breakthrough Pain Morphine Sulfate (Duramorph Pf) Confirm Administered Dose 10 mg .ROUTE .STK-MED ONE Stop: 12/23/16 11:58 Multivitamins (Thera) 1 each PO WITHBREAKFAST [facility] Last Admin: 12/24/16 06:00 Dose: 1 each Naloxone HCl (Narcan) 0.1 mg IVPUSH Q5M PRN PRN Reason: Oversedation Stop: 12/23/16 13:46 Ondansetron HCl (Zofran) Confirm Administered Dose 4 mg .ROUTE .STK-MED ONE Stop: 12/23/16 11:57 Ondansetron HCl (Zofran) 4 mg IVPUSH ONETIME PRN PRN Reason: Nausea/Vomiting Stop: 12/23/16 18:00 Last Admin: 12/23/16 18:01 Dose: 4 mg Oxycodone/Acetaminophen (Percocet 325-5 Mg) 1 - 2 tab PO Q4H PRN PRN Reason: Pain Last Admin: 12/24/16 12:43 Dose: 2 tab Aspirin 81 Mg Tab. (Ec) 0 each PO BID [facility] Last Admin: 12/24/16 10:44 Dose: 4 each Losartan 50 Mg Tab 0 each PO DAILY [facility] Last Admin: 12/24/16 10:20 Dose: 1 each Mv,Ca,Min/Fa/Herbal No.157 [Estroven Max Strength Caplet] 0 each PO DAILY [facility] Last Admin: 12/24/16 10:21 Dose: 1 each Rosuvastatin 5 Mg (Tab) 0 each PO DAILY [facility] Last Admin: 12/24/16 10:21 Dose: 1 each Ubidecarenone 100 Mg 0 each PO DAILY [facility] Last Admin: 12/24/16 10:22 Dose: 1 each Hydrochlorothiazide (25 Mg Tab) 0 each PO DAILY [facility] Last Admin: 12/24/16 10:18 Dose: 1 each Levothyroxine 75 Mcg 0 each PO ACBREAKFAST [facility] Last Admin: 12/24/16 05:28 Dose: 1 each Metoprolol Succinate (25 Mg Tab.Er) 0 each PO DAILY [facility] Last Admin: 12/24/16 10:20 Dose: 1 each K Tabs 10 Meq Tab. (Er) 0 each PO TID [facility] Last Admin: 12/24/16 17:10 Dose: 2 each Phenylephrine HCl (Phenylephrine In Ns 100 Mcg/Ml) Confirm Administered Dose 1 mg .ROUTE .STK-MED ONE Stop: 12/23/16 13:24 Phenylephrine HCl (Phenylephrine In Ns 100 Mcg/Ml) Confirm Administered Dose 1 mg .ROUTE .STK-MED ONE Stop: 12/23/16 14:15 Potassium Chloride (Klor-Con M20) 20 meq PO ONETIME ONE Stop: 12/24/16 09:20 Last Admin: 12/24/16 10:43 Dose: 20 meq Propofol (Diprivan 20 Ml) Confirm Administered Dose 200 mg .ROUTE .STK-MED ONE Stop: 12/23/16 11:57 Propofol (Diprivan 20 Ml) Confirm Administered Dose 200 mg .ROUTE .STK-MED ONE Stop: 12/23/16 12:04 Propofol (Diprivan 20 Ml) Confirm Administered Dose 200 mg .ROUTE .STK-MED ONE Stop: 12/23/16 13:55 Sodium Chloride (Saline Flush) 10 ml FLUSH ASDIRECTED PRN PRN Reason: Keep Vein Open Tranexamic Acid (Cyklokapron) Confirm Administered Dose 1,000 mg .ROUTE .STK- MED ONE Stop: 12/23/16 11:10 Last Admin: 12/23/16 14:19 Dose: 1,000 mg - Exam Wound/Incisions: dressing dry and intact General: alert, cooperative, no acute distress Lungs: Normal respiratory effort Extremities: normal pulses, no calf tenderness, other (NVS intact for BLE. Brent's negative.) - Problem List Review Problem List Initiated/Reviewed/Updated: Yes - Assessment Assessment (Free Text/Narrative):: POD#1 - right TKA - Plan Plan (Free Text/Narrative):: 1. Discharge to home today. 2. The pt has been cleared medically for discharge. 3. Outpatient P.T. 4. Hgb 11.9 today. 5. ASA 325mg BID, frequent mobility, TEDs. The pt was examined by Dr. Gomez today.
--- NOTE | 2017-01-02 18:01 | PCM.DCSUM1 ---
Discharge Summary - Hospital Course Brief History: Jeana is a 61 yo female who underwent right TKA with Dr. Gomez on 12-23-16. The procedure was completed under spinal anesthesia with MAC. The pt tolerated the procedure well and was admitted to the [facility] Unit under Medical- Surgical status. Medical management was provided by the Hospitalist service and the pt's Hospital course was uneventful. The pt's Hgb on POD#1 was 11.9. On POD#1, ASA 325mg BID was initiated for VTE prophylaxis. A Mepilex dressing was placed at the incision site at the time of surgery and remained clean and dry. The pt participated in P.T. and O.T. and progressed well. The pt was allowed to WBAT. On POD#1, the pt was deemed appropriate to discharge to home with her family. - Discharge Data Discharge Date: 12/24/16 Discharge Disposition: Home, Self-Care 01 Condition: Good - Patient Summary/Data Operative Procedure(s) Performed: right total knee arthroplasty Consults: Consultations 12/23/16 07:05 Consult to Case Management [CONS] Routine Consult to Physician [CONS] Routine OT Evaluation and Treatment [CONS] Routine 12/23/16 07:09 PT Evaluation and Treatment [CONS] Routine - Patient Instructions Diet: Usual Diet as Tolerated Activity: Apply Ice, As Tolerated, Elevate Extremity, Full Weight Bearing Driving: Do Not Drive Showering/Bathing: May Shower Wound/Incision Care: Keep Operative Site/Wound Site Clean and Dry, Do NOT Change Dressing Notify Provider of: Fever, Increased Pain, Swelling and Redness, Drainage, Nausea and/or Vomiting Other/Special Instructions: Please get up and moving around every hour while awake. This helps to prevent blood clots. Please take 325mg aspirin twice daily - this also helps to prevent blood clots. The medication is being used for blood clot prevention and not for pain control, so please use the medication twice daily as directed. Please wear the HOMERO hose during the day and remove them at night. Please schedule for P.T. Complete the P.T. exercises and stretches that were instructed in the Hospital. Please use the pain medication and muscle relaxant as needed. The medication may cause drowsiness and/or constipation. You could use a stool softener like docusate sodium or Colace 100mg twice daily and/or a laxative like polyethylene glycol or Miralax daily for constipation. Contact your primary care provider for further instructions if you are constipated. Please schedule an appointment with your primary care provider for 'routine post-op care'. Use the incentive spirometer often. Please place ice to the knee often. Please elevate the limb to decrease swelling. Keep the Mepilex dressing in place until follow-up. Please call [phone] with questions or concerns. - Discharge Plan Prescriptions/Med Rec: Acetaminophen/oxyCODONE [Percocet 325-5 MG] 1 - 2 tab PO Q4H PRN #60 tablet PRN Reason: Pain Aspirin [Ecotrin] 325 mg PO BID #84 tab.ec Cyclobenzaprine [Flexeril] 10 mg PO TID PRN #40 tablet PRN Reason: muscle spasms Home Medications: Home Meds Cinnamon Bark [Cinnamon] 500 mg PO DAILY 12/19/16 [History] Cranberry Conc/C/Bacill Coag [Cranberry Tablet] 1 tab PO DAILY 12/19/16 [History ] Hydrochlorothiazide 25 mg PO DAILY 12/19/16 [History] Levothyroxine Sodium 75 mcg PO DAILY 12/19/16 [History] Losartan [Cozaar] 50 mg PO DAILY 12/19/16 [History] MV,Ca,Min/FA/Herbal No.157 [[place]ro[place] Max Strength Caplet] 1 tab PO DAILY [History] Metoprolol Succinate 25 mg PO DAILY 12/19/16 [History] Potassium Chloride 20 meq PO TID 12/19/16 [History] Rosuvastatin [Crestor] 5 mg PO DAILY 12/19/16 [History] Turmeric Root Extract [Turmeric] 500 mg PO DAILY 12/19/16 [History] Ubidecarenone [Coq-10] 100 mg PO DAILY 12/19/16 [History] Acetaminophen/oxyCODONE [Percocet 325-5 MG] 1 - 2 tab PO Q4H PRN #60 tablet [Rx] Aspirin [Ecotrin] 325 mg PO BID #84 tab.ec 12/24/16 [Rx] Cyclobenzaprine [Flexeril] 10 mg PO TID PRN #40 tablet 12/24/16 [Rx] Patient Handouts: Hypoxemia, Total Knee Replacement, Care After, Oena-ae-Ltov, Total Knee Replacement, Irzl-ro-Qocd, Hypertension, Feyh-gs-Mluv, Aspirin, ASA oral tablets, Knee Rehabilitation Guidelines Following Surgery Referrals: Susie Longoria NP [Primary Care Provider] - Ani Chandler PA-C [Physician Associate Financial Planner] - - Patient Data Vitals - Most Recent: Last Vital Signs Temp 99.8 F 12/24/16 12:00 Pulse 74 12/24/16 12:00 Resp 16 12/24/16 19:00 BP 139/72 12/24/16 12:00 Pulse Ox 92 L 12/24/16 19:00 Weight - Most Recent: 176 lb 5.917 oz Med Orders - Current: Current Medications Discontinued Medications Aspirin (Ecotrin) 325 mg PO BID [facility] Bupivacaine HCl (Marcaine 0.25%) Confirm Administered Dose 30 ml .ROUTE .STK- MED ONE Stop: 12/23/16 11:11 Last Admin: 12/23/16 14:11 Dose: 30 ml Cefazolin Sodium (Ancef) Confirm Administered Dose 2 gm .ROUTE .STK-MED ONE Stop: 12/23/16 11:10 Last Admin: 12/23/16 14:07 Dose: 2 gm Cefazolin Sodium (Ancef) Confirm Administered Dose 1 gm .ROUTE .STK-MED ONE Stop: 12/23/16 12:06 Cefazolin Sodium (Ancef) Confirm Administered Dose 1 gm .ROUTE .STK-MED ONE Stop: 12/23/16 12:06 Morphine Sulfate 8 mg/Epinephrine HCl 0.3 mg/Cefuroxime Sodium 750 mg/Ketorolac Tromethamine 30 mg/Sodium Chloride 27.9 ml 0 mg .XX ONETIME ONE Stop: 12/23/16 12:31 Last Admin: 12/23/16 14:11 Dose: 788.3 mg Cyclobenzaprine HCl (Flexeril) 10 mg PO TID PRN PRN Reason: Spasms Last Admin: 12/24/16 17:06 Dose: 10 mg Diphenhydramine HCl (Benadryl) 25 mg IVPUSH Q6H PRN PRN Reason: itching Stop: 12/23/16 20:00 Ephedrine Sulfate (Ephedrine In Ns) Confirm Administered Dose 25 mg .ROUTE .STK- MED ONE Stop: 12/23/16 14:44 Famotidine (Pepcid) 20 mg PO Q12H [facility] Last Admin: 12/24/16 10:17 Dose: Not Given Fentanyl (Sublimaze) Confirm Administered Dose 250 mcg .ROUTE .STK-MED ONE Stop: 12/23/16 11:57 Fentanyl (Sublimaze) Confirm Administered Dose 100 mcg .ROUTE .STK-MED ONE Stop: 12/23/16 11:58 Fentanyl (Sublimaze) 50 mcg IVPUSH Q5M PRN PRN Reason: pain Stop: 12/23/16 20:00 Hydromorphone HCl (Dilaudid) 0.5 mg IVPUSH Q15M PRN PRN Reason: Pain (severe 7-10) Stop: 12/23/16 14:46 Lactated Ringer's (Ringers, Lactated) 1,000 mls @ 125 mls/hr IV ASDIRECTED [facility] Stop: 12/23/16 23:00 Last Admin: 12/23/16 16:47 Dose: 125 mls/hr Sodium Chloride (Normal Saline) Confirm Administered Dose 10 mls @ as directed .ROUTE .STK-MED ONE Stop: 12/23/16 12:06 Lactated Ringer's (Ringers, Lactated) Confirm Administered Dose 1,000 mls @ as directed .ROUTE .STK-MED ONE Stop: 12/23/16 12:06 Lactated Ringer's (Ringers, Lactated) Confirm Administered Dose 1,000 mls @ as directed .ROUTE .STK-MED ONE Stop: 12/23/16 14:01 Cefazolin Sodium/Dextrose 2 gm (/ Premix) 50 mls @ 100 mls/hr IV Q8H [facility] Stop: 12/24/16 11:29 Last Admin: 12/24/16 10:45 Dose: 100 mls/hr Iodine (Iodine 2% Mild Tincture) Confirm Administered Dose 30 ml .ROUTE .STK- MED ONE Stop: 12/23/16 11:10 Last Admin: 12/23/16 14:02 Dose: 18 ml Ketorolac Tromethamine (Toradol) 15 mg PO ONETIME ONE Stop: 12/24/16 14:01 Last Admin: 12/24/16 14:39 Dose: 15 mg Lidocaine/Sodium Bicarbonate (Buffered Lidocaine 1% In Ns 8.4%) 0.25 ml IV ONETIME PRN PRN Reason: Prior to IV Start Stop: 12/23/16 18:00 Last Admin: 12/23/16 11:20 Dose: 0.25 ml Midazolam HCl (Versed 1 Mg/Ml) Confirm Administered Dose 2 mg .ROUTE .STK-MED ONE Stop: 12/23/16 11:57 Morphine Sulfate (Morphine) 2 mg IVPUSH Q2H PRN PRN Reason: Breakthrough Pain Morphine Sulfate (Duramorph Pf) Confirm Administered Dose 10 mg .ROUTE .STK-MED ONE Stop: 12/23/16 11:58 Multivitamins (Thera) 1 each PO WITHBREAKFAST [facility] Last Admin: 12/24/16 06:00 Dose: 1 each Naloxone HCl (Narcan) 0.1 mg IVPUSH Q5M PRN PRN Reason: Oversedation Stop: 12/23/16 13:46 Ondansetron HCl (Zofran) Confirm Administered Dose 4 mg .ROUTE .STK-MED ONE Stop: 12/23/16 11:57 Ondansetron HCl (Zofran) 4 mg IVPUSH ONETIME PRN PRN Reason: Nausea/Vomiting Stop: 12/23/16 18:00 Last Admin: 12/23/16 18:01 Dose: 4 mg Oxycodone/Acetaminophen (Percocet 325-5 Mg) 1 - 2 tab PO Q4H PRN PRN Reason: Pain Last Admin: 12/24/16 12:43 Dose: 2 tab Aspirin 81 Mg Tab. (Ec) 0 each PO BID [facility] Last Admin: 12/24/16 10:44 Dose: 4 each Losartan 50 Mg Tab 0 each PO DAILY [facility] Last Admin: 12/24/16 10:20 Dose: 1 each Mv,Ca,Min/Fa/Herbal No.157 [Estroven Max Strength Caplet] 0 each PO DAILY [facility] Last Admin: 12/24/16 10:21 Dose: 1 each Rosuvastatin 5 Mg (Tab) 0 each PO DAILY [facility] Last Admin: 12/24/16 10:21 Dose: 1 each Ubidecarenone 100 Mg 0 each PO DAILY [facility] Last Admin: 12/24/16 10:22 Dose: 1 each Hydrochlorothiazide (25 Mg Tab) 0 each PO DAILY [facility] Last Admin: 12/24/16 10:18 Dose: 1 each Levothyroxine 75 Mcg 0 each PO ACBREAKFAST [facility] Last Admin: 12/24/16 05:28 Dose: 1 each Metoprolol Succinate (25 Mg Tab.Er) 0 each PO DAILY [facility] Last Admin: 12/24/16 10:20 Dose: 1 each K Tabs 10 Meq Tab. (Er) 0 each PO TID [facility] Last Admin: 12/24/16 17:10 Dose: 2 each Phenylephrine HCl (Phenylephrine In Ns 100 Mcg/Ml) Confirm Administered Dose 1 mg .ROUTE .STK-MED ONE Stop: 12/23/16 13:24 Phenylephrine HCl (Phenylephrine In Ns 100 Mcg/Ml) Confirm Administered Dose 1 mg .ROUTE .STK-MED ONE Stop: 12/23/16 14:15 Potassium Chloride (Klor-Con M20) 20 meq PO ONETIME ONE Stop: 12/24/16 09:20 Last Admin: 12/24/16 10:43 Dose: 20 meq Propofol (Diprivan 20 Ml) Confirm Administered Dose 200 mg .ROUTE .STK-MED ONE Stop: 12/23/16 11:57 Propofol (Diprivan 20 Ml) Confirm Administered Dose 200 mg .ROUTE .STK-MED ONE Stop: 12/23/16 12:04 Propofol (Diprivan 20 Ml) Confirm Administered Dose 200 mg .ROUTE .STK-MED ONE Stop: 12/23/16 13:55 Sodium Chloride (Saline Flush) 10 ml FLUSH ASDIRECTED PRN PRN Reason: Keep Vein Open Tranexamic Acid (Cyklokapron) Confirm Administered Dose 1,000 mg .ROUTE .STK- MED ONE Stop: 12/23/16 11:10 Last Admin: 12/23/16 14:19 Dose: 1,000 mg *Q Meaningful Use (DIS) - VTE *Q VTE Criteria *Q: - Stroke *Q Stroke Criteria *Q: - AMI *Q AMI Criteria *Q:
== END 2016-12-24 19:13 | disposition home or self-care (01) | DRG 302 ==
LOC: JD.OB 10:45
PROVIDERS: ADMIT Orthopaedic Surgery; ATTEND Orthopaedic Surgery
PROC: 0SRC0J9 Replacement of Right Knee Joint with Synthetic Substitute, Cemented, Open Approach (ICD-10-PCS; principal; 2016-12-23)
DX: M17.11 Unilateral primary osteoarthritis, right knee (principal); E03.9 Hypothyroidism, unspecified; I10 Essential (primary) hypertension; Z79.82 Long term (current) use of aspirin; Z79.899 Other long term (current) drug therapy; Z88.1 Allergy status to other antibiotic agents; Z88.2 Allergy status to sulfonamides; Z85.3 Personal history of malignant neoplasm of breast
CPT/HCPCS: 01402; 36415; 73560-26-RT; 73560-RT; 80053; 85025; 87641; 94762; 97110-GP; 97116-GP; 97161-GP; 97165-GO; 97530-GO; 97535-GO; A9270-GY; C1713; C1776; J0171; J0690; J0697; J1885; J2250; J2270; J2405; J2704; J3010; J3490; J7050; J7120

== ENCOUNTER 2017-06-16 07:30 | Inpatient (IN) | payer BC ==
[2017-06-30] MEDS ORDERED: Lidocaine 1%/Sod Bicarbonate in NS 8.4% 1 ML Syringe IV PRN (00:01)
[2017-06-30] MEDS ORDERED: Sodium Chloride 0.9% 10 ML Syringe FLUSH PRN (00:01)
[2017-06-30] MEDS ORDERED: Naloxone 0.4 MG/ML SDV IVPUSH PRN (07:07)
[2017-06-30] MEDS ORDERED: Docusate Sodium 100 MG Cap PO PRN (07:07)
[2017-06-30] MEDS ORDERED: Sennosides 8.6 MG Tab PO PRN (07:07)
[2017-06-30] MEDS ORDERED: diphenhydrAMINE 50 MG/ML SDV IVPUSH PRN ×2 (07:07→13:59)
[2017-06-30] MEDS ORDERED: Magnesium Hydroxide 400 MG/5 ML Susp 30 ML Cup PO PRN (07:07)
[2017-06-30] MEDS ORDERED: Bisacodyl 5 MG Tab PO PRN (07:07)
[2017-06-30] MEDS ORDERED: Morphine 2 MG/ML Syringe IVPUSH PRN (07:07)
--- NOTE | 2017-06-30 11:12 | PCM.PREANE ---
Preanesthetic Assessment - Procedure Proposed Procedure: L TKR - Anesthesia/Transfusion/Family Hx Anesthesia History: Prior Anesthesia Without Reaction Family History of Anesthesia Reaction: No Transfusion History: No Prior Transfusion(s) Type of Transfusion Reactions: Reports: Unknown Intubation History: Unknown - Review of Systems General: No Symptoms Cardiovascular: Other (HTN ) Gastrointestinal: Other (GERD) Neurological: Other (Rheumatiod arthritis ) Other: Reports: None, Liver Problems (fatty ), Thyroid Problems - Physical Assessment NPO Status Date: 06/30/17 NPO Status Time: 05:00 Pulse: 76 O2 Sat by Pulse Oximetry: 95 Respiratory Rate: 16 Blood Pressure: 129/71 Temperature: 37.2 C Height: 1.63 m Weight: 80 kg ASA Class: 2 Mental Status: Alert & Oriented x3 Dentition: Reports: Normal Dentition Thyro-Mental Finger Breadths: 3 Mouth Opening Finger Breadths: 3 ROM/Head Extension: Full Lungs: Clear to Auscultation, Normal Respiratory Effort Cardiovascular: Regular Rate, Regular Rhythm - Lab Values: Laboratory Last Values MRSA (PCR) Negative 06/06/17 12:54 - Allergies Allergies/Adverse Reactions: Allergies Allergy/AdvReac Type Severity Reaction Status Date / Time erythromycin base AdvReac Drowsiness Verified 06/27/17 14:53 Sulfa (Sulfonamide AdvReac urinary Verified 06/27/17 14:53 Antibiotics) urgency - Blood Blood Available: No Product(s) Available: None - Anesthesia Plan Pre-Op Medication Ordered: None - Acknowledgements Anesthesia Type Planned: Spinal (with duramorph) Pt an Appropriate Candidate for the Planned Anesthesia: Yes Alternatives and Risks of Anesthesia Discussed w Pt/Guardian: Yes Pt/Guardian Understands and Agrees with Anesthesia Plan: Yes PreAnesthesia Questionnaire HEENT History: Reports: Impaired Vision Other HEENT History: wears glasses Cardiovascular History: Reports: Hypertension Respiratory History: Reports: None Gastrointestinal History: Reports: None Genitourinary History: Reports: None 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: Reports: Other (See Below) Other OB/BYN History: breast cyst, fibroid tumor Musculoskeletal History: Reports: RA Neurological History: Reports: None Psychiatric History: Reports: None Endocrine/Metabolic History: Reports: Hypothyroidism Hematologic History: Reports: None Immunologic History: Reports: None Oncologic (Cancer) History: Reports: None Dermatologic History: Reports: None - Infectious Disease History Infectious Disease History: Reports: None - Past Surgical History Head Surgeries/Procedures: Reports: None HEENT Surgical History: Reports: Adenoidectomy, Tonsillectomy Cardiovascular Surgical History: Reports: None Respiratory Surgical History: Reports: None GI Surgical History: Reports: Colonoscopy, EGD Female Surgical History: Reports: Breast Biopsy, D&C, Hysterectomy Endocrine Surgical History: Reports: None Neurological Surgical History: Reports: None Musculoskeletal Surgical History: Reports: None, Knee Replacement Other Musculoskeletal Surgeries/Procedures:: Right total knee replacement Dermatological Surgical History: Reports: None - SUBSTANCE USE Smoking Status *Q: Never Smoker Second Hand Smoke Exposure: No Recreational Drug Use History: No - HOME MEDS Home Medications: Home Meds Hydrochlorothiazide 25 mg PO DAILY 12/19/16 [History] Levothyroxine Sodium 75 mcg PO DAILY 12/19/16 [History] Losartan [Cozaar] 50 mg PO DAILY 12/19/16 [History] Metoprolol Succinate 25 mg PO DAILY 12/19/16 [History] Potassium Chloride 20 meq PO TID 12/19/16 [History] Rosuvastatin [Crestor] 5 mg PO DAILY 12/19/16 [History] Aspirin 81 mg PO DAILY 06/27/17 [History] Celecoxib [Celecoxib] 200 mg PO DAILY 06/27/17 [History] Cranberry Conc/C/Bacill Coag [Cranberry Tablet] 1 tab PO DAILY 06/27/17 [History ] Ubidecarenone [Coq-10] 200 mg PO DAILY 06/27/17 [History] - CURRENT (IN HOUSE) MEDS Current Meds: Current Medications Aspirin (Ecotrin) 325 mg PO BID [facility] Bisacodyl (Dulcolax) 5 mg PO DAILY PRN PRN Reason: Constipation Morphine Sulfate 8 mg/Epinephrine HCl 0.3 mg/Cefuroxime Sodium 750 mg/Ketorolac Tromethamine 30 mg/Sodium Chloride 27.9 ml 0 mg .XX ONETIME ONE Stop: 06/30/17 13:46 Cyclobenzaprine HCl (Flexeril) 10 mg PO TID PRN PRN Reason: Spasms Diphenhydramine HCl (Benadryl) 25 mg IVPUSH Q4H PRN PRN Reason: Nausea Docusate Sodium (Colace) 100 mg PO BID PRN PRN Reason: Constipation Famotidine (Pepcid) 20 mg PO Q12H [facility] Lactated Ringer's (Ringers, Lactated) 1,000 mls @ 125 mls/hr IV ASDIRECTED [facility] Cefazolin Sodium/Dextrose 2 gm (/ Premix) 50 mls @ 100 mls/hr IV Q8H [facility] Stop: 06/30/17 23:44 Ketorolac Tromethamine (Toradol) 15 mg IVPUSH Q6H PRN PRN Reason: Pain Lidocaine/Sodium Bicarbonate (Buffered Lidocaine 1% In Ns 8.4%) 0.25 ml IV ONETIME PRN PRN Reason: Prior to IV Start Stop: 06/30/17 18:00 Magnesium Hydroxide (Milk Of Magnesia) 30 ml PO BID PRN PRN Reason: Constipation Morphine Sulfate (Morphine) 2 mg IVPUSH Q2H PRN PRN Reason: Breakthrough Pain Naloxone HCl (Narcan) 0.1 mg IVPUSH Q5M PRN PRN Reason: Oversedation Ondansetron HCl (Zofran) 4 mg IVPUSH Q6H PRN PRN Reason: Nausea/Vomiting Oxycodone/Acetaminophen (Percocet 325-5 Mg) 1 - 2 tab PO Q4H PRN PRN Reason: Pain Senna (Senna) 8.6 mg PO BID PRN PRN Reason: Constipation Sodium Chloride (Saline Flush) 10 ml FLUSH ASDIRECTED PRN PRN Reason: Keep Vein Open Discontinued Medications Bupivacaine HCl (Marcaine 0.25%) Confirm Administered Dose 30 ml .ROUTE .STK- MED ONE Stop: 06/30/17 10:49 Cefazolin Sodium (Ancef) Confirm Administered Dose 2 gm .ROUTE .STK-MED ONE Stop: 06/30/17 10:49 Iodine (Iodine 2% Mild Tincture) Confirm Administered Dose 30 ml .ROUTE .STK- MED ONE Stop: 06/30/17 10:49 Tranexamic Acid (Cyklokapron) Confirm Administered Dose 1,000 mg .ROUTE .STK- MED ONE Stop: 06/30/17 10:49 Vancomycin HCl (Vancomycin) Confirm Administered Dose 1 gm .ROUTE .STK-MED ONE Stop: 06/30/17 10:49
[2017-06-30] MEDS: Lactated Ringers 1,000 ML IV SCH ×2 (11:15→14:23)
[2017-06-30] MEDS ORDERED: Propofol 200 MG/20 ML SDV ONE (11:38)
[2017-06-30] MEDS ORDERED: fentaNYL 100 MCG/2 ML SDV ONE (11:39)
[2017-06-30] MEDS ORDERED: Midazolam 1 MG/ML 2 ML SDV ONE (11:39)
[2017-06-30] MEDS ORDERED: Morphine PF 10 MG/10 ML SDV ONE (11:39)
[2017-06-30] MEDS ORDERED: Ondansetron 4 MG/2 ML SDV ONE (11:45)
[2017-06-30] MEDS ORDERED: Lidocaine 1% 4 ML ONE (11:45)
[2017-06-30] MEDS ORDERED: ceFAZolin 1 GM Vial ONE (11:45)
[2017-06-30] MEDS: Iodine/Sodium Iodide 2% Tincture 30 ML Bottle ONE ×2 (12:43→13:04)
[2017-06-30] MEDS: ceFAZolin 1 GM Vial ONE ×2 (12:44→13:09)
[2017-06-30] MEDS: Bupivacaine 0.25% 30 ML SDV ONE ×2 (12:44→13:13)
[2017-06-30] MEDS ORDERED: ePHEDrine 50 MG/ML SDV ONE (12:45)
[2017-06-30] MEDS: Vancomycin 1 GM SDV ONE ×2 (12:45→13:15)
[2017-06-30] MEDS: Morphine 8 MG, EPINEPHrine 0.3 MG, Cefuroxime 750 MG, Ketorolac 30 MG, Sodium Chloride ... ONE ×15 (12:45→19:50)
--- NOTE | 2017-06-30 13:58 | PCM.POSTAN ---
POST ANESTHESIA ASSESSMENT - MENTAL STATUS Mental Status: Alert, Oriented - VITAL SIGNS Pulse Rate: 95 SaO2: 96 Resp Rate: 15 Blood Pressure: 113/59 Temperature: 37.1 C - RESPIRATORY Respiratory Status: Respiratory Rate WNL, Airway Patent, O2 Saturation Stable, Supplemental Oxygen - CARDIOVASCULAR CV Status: Pulse Rate WNL, Blood Pressure Stable - GASTROINTESTINAL GI Status: No Symptoms - PAIN Pain Score: 0 - POST OP HYDRATION Hydration Status: Adequate & Stable
[2017-06-30] MEDS ORDERED: Meperidine PF 50 MG/ML Syringe IVPUSH PRN (13:59)
[2017-06-30] MEDS ORDERED: Ondansetron 4 MG/2 ML SDV IVPUSH PRN (13:59)
[2017-06-30] MEDS ORDERED: fentaNYL 100 MCG/2 ML SDV IVPUSH PRN (13:59)
--- NOTE | 2017-06-30 15:00 | CR ---
Left knee: AP and lateral views of the left knee were obtained. Comparison: Previous left knee exam is not available. Knee prosthesis is seen. Components are aligned. Underlying bony structures are intact. Soft tissue air is noted from the surgical procedure. Impression: 1. Satisfactory appearance of recently placed left knee prosthesis. Diagnostic code #2
--- NOTE | 2017-06-30 17:21 | PCM.OPNOTE ---
- General Post-Op/Procedure Note Date of Surgery/Procedure: 06/30/17 Operative Procedure(s): left total knee arthroplasty Pre Op Diagnosis: left knee osteoarthrosis Post-Op Diagnosis: Same Anesthesia Technique: Local, MAC, Spinal Primary Surgeon: Juan J Gomez Anesthesia Provider: Kerwin Escalante Tennis Coach: Ani Chandler Tennis Coach: Fina Suggs EBL in mLs: 150 Complications: None Condition: Good Free Text/Narrative:: Intake & Output 06/30/17 06/30/17 06/30/17 06:59 14:59 22:59 Intake Total 250 Output Total 400 Balance -150 size 4 femur size 3 tibia 9mm 29x9mm
[2017-06-30] MEDS: ceFAZolin 2 GM in Premix Bag 1 BAG IV SCH (18:30)
[2017-06-30] MEDS: Acetaminophen/oxyCODONE 325-5 MG Tab PO PRN (18:31)
--- NOTE | 2017-06-30 19:48 | PCM.CONS ---
H&P History of Present Illness - General Date of Service: 06/30/17 Admit Problem/Dx: Admission Diagnosis/Problem Admission Diagnosis/Problem Osteoarthritis of knee Source of Information: Patient, Family, Provider, RN, Other (surgical notes ) History Limitations: Reports: No Limitations - History of Present Illness Initial Comments - Free Text/Narative: Jeana Roberts is a 61 yo female pt. of Dr. Gomez who is post-operative day 0 for left TKA. Hospitalist medicine was contacted for post-operative medical management. At this time she is resting comfortably and pain is controlled. She denies any chest pain, SOB, palpitations, nausea and vomiting. She reports she has been nauseated and vomited just earlier in evening. She carries a history of HTN, GERD, RA, and "thyroid problems." She is a full code. Her PCP is Susie Longoria, Nurse Practitioner at [facility]. Left Knee Pain Score (Numeric/FACES): 5 - Related Data Allergies/Adverse Reactions: Allergies Allergy/AdvReac Type Severity Reaction Status Date / Time erythromycin base AdvReac Drowsiness Verified 06/27/17 14:53 Sulfa (Sulfonamide AdvReac urinary Verified 06/27/17 14:53 Antibiotics) urgency Home Medications: Home Meds Hydrochlorothiazide 25 mg PO DAILY 12/19/16 [History] Levothyroxine Sodium 75 mcg PO DAILY 12/19/16 [History] Losartan [Cozaar] 50 mg PO DAILY 12/19/16 [History] Metoprolol Succinate 25 mg PO DAILY 12/19/16 [History] Potassium Chloride 20 meq PO TID 12/19/16 [History] Rosuvastatin [Crestor] 5 mg PO DAILY 12/19/16 [History] Aspirin 81 mg PO DAILY 06/27/17 [History] Celecoxib [Celecoxib] 200 mg PO DAILY 06/27/17 [History] Cranberry Conc/C/Bacill Coag [Cranberry Tablet] 1 tab PO DAILY 06/27/17 [History ] Ubidecarenone [Coq-10] 200 mg PO DAILY 06/27/17 [History] MV,Ca,Min/FA/Herbal No.157 [Estroven Max Strength Caplet] 1 tab PO DAILY [History] Past Medical History HEENT History: Reports: Impaired Vision Other HEENT History: wears glasses Cardiovascular History: Reports: Hypertension Respiratory History: Reports: None Gastrointestinal History: Reports: None Genitourinary History: Reports: None 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) Other OB/BYN History: breast cyst, fibroid tumor Musculoskeletal History: Reports: RA Neurological History: Reports: None Psychiatric History: Reports: None Endocrine/Metabolic History: Reports: Hypothyroidism Hematologic History: Reports: None Immunologic History: Reports: None Oncologic (Cancer) History: Reports: None Dermatologic History: Reports: None - Infectious Disease History Infectious Disease History: Reports: None - Past Surgical History Head Surgeries/Procedures: Reports: None HEENT Surgical History: Reports: Adenoidectomy, Tonsillectomy Cardiovascular Surgical History: Reports: None Respiratory Surgical History: Reports: None GI Surgical History: Reports: Colonoscopy, EGD Female Surgical History: Reports: Breast Biopsy, D&C, Hysterectomy Endocrine Surgical History: Reports: None Neurological Surgical History: Reports: None Musculoskeletal Surgical History: Reports: None, Knee Replacement Other Musculoskeletal Surgeries/Procedures:: Right total knee replacement Dermatological Surgical History: Reports: None Social & Family History - Family History Family Medical History: Noncontributory - Tobacco Use Smoking Status *Q: Never Smoker Second Hand Smoke Exposure: No - Caffeine Use Caffeine Use: Reports: Soda Caffeine Use Comment: "soda once in awhile" - Recreational Drug Use Recreational Drug Use: No H&P Review of Systems - Review of Systems: Review Of Systems: See Below General: Reports: No Symptoms HEENT: Reports: No Symptoms Pulmonary: Reports: No Symptoms Cardiovascular: Reports: No Symptoms Gastrointestinal: Reports: No Symptoms Genitourinary: Reports: No Symptoms Musculoskeletal: Reports: Neck Pain (Chronic ), Joint Pain (left knee ). Denies : Shoulder Pain, Arm Pain, Back Pain Skin: Reports: No Symptoms Psychiatric: Reports: No Symptoms Neurological: Reports: No Symptoms Hematologic/Lymphatic: Reports: No Symptoms Immunologic: Reports: No Symptoms Exam - Exam Exam: See Below - Vital Signs Vital Signs: Last Vital Signs Temp 98.8 F 06/30/17 14:47 Pulse 81 06/30/17 17:31 Resp 16 06/30/17 19:00 BP 113/61 06/30/17 17:31 Pulse Ox 100 06/30/17 19:00 Weight: 174 lb 4 oz - Exam Quality Assessment: Supplemental Oxygen, DVT Prophylaxis General: Alert, Oriented, Cooperative HEENT: Conjunctiva Clear, EACs Clear, Hearing Intact, Mucosa Moist & Malott, Nares Patent, Posterior Pharynx Clear, Pupils Equal, Pupils Reactive Neck: Supple, Trachea Midline. No: JVD Lungs: Clear to Auscultation, Normal Respiratory Effort Cardiovascular: Regular Rate, Regular Rhythm GI/Abdominal Exam: Normal Bowel Sounds, Soft, Non-Tender, No Organomegaly, No Distention, No Abnormal Bruit, No Mass, Pelvis Stable (Female) Exam: Deferred Rectal (Female) Exam: Deferred Back Exam: Normal Inspection, Full Range of Motion Extremities: No Pedal Edema, Normal Capillary Refill, Other (Left knee bandaged with WANDA. Dressing dry and intact. ) Peripheral Pulses: 2+: Radial (L), Radial (R), Posterior Tibial (L), Posterior Tibial (R), Dorsalis Pedis (L), Dorsalis Pedis (R) Skin: Warm, Dry, Intact Neurological: Cranial Nerves Intact (grossly ) Neuro Extensive - Mental Status: Alert, Oriented x3, Normal Mood/Affect, Normal Cognition, Memory Intact Neuro Extensive - Motor, Sensory, Reflexes: CN II-XII Intact (Grossly ) Psychiatric: Alert, Normal Affect, Normal Mood Physical Exam Comments:: Patient examined while lying in bed. Consult PN Assessment/Plan POD#: 0 Procedures: Procedures CULTURE AEROBIC IDENTIFY (08/19/14) GAIT TRAINING THERAPY (01/28/17) HEPATOBIL SYST IMAGE W/DRUG (02/01/15) MANUAL THERAPY 1/> REGIONS (01/28/17) MASSAGE THERAPY (01/28/17) MICROBE SUSCEPTIBLE LACI (08/19/14) NEUROMUSCULAR REEDUCATION (01/28/17) PT EVAL LOW COMPLEX 20 MIN (01/03/17) THERAPEUTIC EXERCISES (02/06/17) URINALYSIS AUTO W/O SCOPE (02/15/15) URINE BACTERIA CULTURE (08/19/14) X-RAY EXAM NECK SPINE 2-3 VW (04/01/17) X-RAY EXAM THORAC SPINE 2VWS (04/01/17) (1) S/P total knee arthroplasty SNOMED Code(s): 7023311044838, 9627266392377 Code(s): Z96.659 - PRESENCE OF UNSPECIFIED ARTIFICIAL KNEE JOINT Priority: High Current Visit: Yes Qualifiers: Laterality: left Qualified Code(s): Z96.652 - Presence of left artificial knee joint (2) Osteoarthritis SNOMED Code(s): 433856148 Code(s): M19.90 - UNSPECIFIED OSTEOARTHRITIS, UNSPECIFIED SITE Priority: High Current Visit: Yes Qualifiers: Osteoarthritis location: knee Osteoarthritis type: primary Laterality: left Qualified Code(s): M17.12 - Unilateral primary osteoarthritis, left knee (3) Post-operative nausea and vomiting SNOMED Code(s): 3125552 Code(s): R11.2 - NAUSEA WITH VOMITING, UNSPECIFIED; Z98.890 - OTHER SPECIFIED POSTPROCEDURAL STATES Priority: High Current Visit: Yes (4) HTN (hypertension) SNOMED Code(s): 72963281 Code(s): I10 - ESSENTIAL (PRIMARY) HYPERTENSION Priority: Medium Current Visit: No Qualifiers: Hypertension type: essential hypertension Qualified Code(s): I10 - Essential (primary) hypertension (5) Hypothyroid SNOMED Code(s): 19608365 Code(s): E03.9 - HYPOTHYROIDISM, UNSPECIFIED Priority: Medium Current Visit: No Qualifiers: Hypothyroidism type: unspecified Qualified Code(s): E03.9 - Hypothyroidism , unspecified Problem List Initiated/Reviewed/Updated: Yes Plan: I/P: Acute: S/P left TKA post-operative day 0 -DVT and pain management per primary team -IS/RT -PT/OT -Monitor oxygen saturations -O2 as needed -Vital signs stable Osteoarthritis of the knee -Pain management as above Post-operative nausea and vomiting -Improved greatly since admission -Antiemetics as ordered -Continue to monitor Chronic: GERD HTN Hypothyroid Plan: CM/SW for discharge planning Other orders as listed above GI prophylaxis Home medications as indicated Routine AM labs She is a full code. Her PCP is Susie Longoria, nurse practitioner at [facility] in [place]. Thank you for allowing us to participate in the care of this patient! Requesting Provider: Dr. Gomez Date Consult Requested: 06/30/17 Reason for Consult: Post-operative medical management Patient History Reviewed: Yes Admission H&P Reviewed: Yes Time Spent (in minutes): 45
[2017-06-30] MEDS: Ondansetron 4 MG/2 ML SDV IVPUSH PRN (19:59)
[2017-06-30] MEDS: Famotidine 20 MG Tab PO SCH (20:03)
[2017-06-30] MEDS: Potassium Chloride 20 MEQ Tab.ER PO SCH (20:03)
[2017-06-30] MEDS: Ketorolac 15 MG/ML SDV IVPUSH PRN (20:09)
[2017-07-01] MEDS: Ondansetron 4 MG/2 ML SDV IVPUSH PRN (00:37)
[2017-07-01] MEDS: Acetaminophen/oxyCODONE 325-5 MG Tab PO PRN ×3 (00:38→14:22)
[2017-07-01] MEDS: Cyclobenzaprine 10 MG Tab PO PRN ×3 (00:39→15:04)
[2017-07-01] MEDS: ceFAZolin 2 GM in Premix Bag 1 BAG IV SCH ×2 (03:10→12:29)
--- NOTE | 2017-07-01 07:21 | PCM.CONSN ---
- General Info Date of Service: 07/01/17 Admission Dx/Problem (Free Text): Admission Diagnosis/Problem Admission Diagnosis/Problem Osteoarthritis of knee S/P Lt TKA with Dr. Gomez yesterday. She had postop n/v, this has resolved. Tolerating meals without problems now. Pain under control. Working with PT/OT Hgb 11.9 today. Functional Status: Reports: Pain Controlled, Tolerating Diet, Ambulating, Urinating, Incentive Spirometry. Denies: New Symptoms - Review of Systems General: Reports: No Symptoms HEENT: Reports: No Symptoms Pulmonary: Reports: No Symptoms Cardiovascular: Reports: No Symptoms Gastrointestinal: Reports: No Symptoms Genitourinary: Reports: No Symptoms Musculoskeletal: Reports: Leg Pain Skin: Reports: No Symptoms Neurological: Reports: No Symptoms Psychiatric: Reports: No Symptoms - Patient Data Vitals - Most Recent: Last Vital Signs Temp 98.4 F 07/01/17 03:07 Pulse 78 07/01/17 03:07 Resp 14 07/01/17 03:07 BP 119/69 07/01/17 03:07 Pulse Ox 99 07/01/17 03:07 Weight - Most Recent: 181 lb 8 oz I&O - Last 24 Hours: Intake & Output 06/30/17 07/01/17 07/01/17 22:59 06:59 14:59 Intake Total 240 410 Output Total 350 Balance 240 60 Lab Results Last 24 Hours: Laboratory Results - last 24 hr 07/01/17 Range/Units 06:00 WBC 7.98 (3.98-10.04) K/mm3 RBC 3.67 L (3.98-5.22) M/mm3 Hgb 11.9 (11.2-15.7) gm/L Hct 35.9 (34.1-44.9) % MCV 97.8 H (79.4-94.8) fl MCH 32.4 H (25.6-32.2) pg MCHC 33.1 (32.2-35.5) g/dl RDW Std Deviation 43.1 (36.4-46.3) fL Plt Count 218 (182-369) K/mm3 MPV 9.6 (9.4-12.3) fl Med Orders - Current: Current Medications Aspirin (Ecotrin) 325 mg PO BID [facility] Bisacodyl (Dulcolax) 5 mg PO DAILY PRN PRN Reason: Constipation Cyclobenzaprine HCl (Flexeril) 10 mg PO TID PRN PRN Reason: Spasms Last Admin: 07/01/17 00:39 Dose: 10 mg Diphenhydramine HCl (Benadryl) 25 mg IVPUSH Q4H PRN PRN Reason: Nausea Docusate Sodium (Colace) 100 mg PO BID PRN PRN Reason: Constipation Famotidine (Pepcid) 20 mg PO Q12H [facility] Last Admin: 06/30/17 20:03 Dose: Not Given Hydrochlorothiazide (Hydrochlorothiazide) 25 mg PO DAILY [facility] Cefazolin Sodium/Dextrose 2 gm (/ Premix) 50 mls @ 100 mls/hr IV Q8H [facility] Stop: 07/01/17 11:29 Last Admin: 07/01/17 03:10 Dose: 100 mls/hr Ketorolac Tromethamine (Toradol) 15 mg IVPUSH Q6H PRN PRN Reason: Pain Last Admin: 06/30/17 20:09 Dose: 15 mg Levothyroxine Sodium (Levothyroxine) 75 mcg PO DAILY [facility] Losartan Potassium (Cozaar) 50 mg PO DAILY [facility] Magnesium Hydroxide (Milk Of Magnesia) 30 ml PO BID PRN PRN Reason: Constipation Metoprolol Succinate (Toprol Xl) 25 mg PO DAILY [facility] Morphine Sulfate (Morphine) 2 mg IVPUSH Q2H PRN PRN Reason: Breakthrough Pain Naloxone HCl (Narcan) 0.1 mg IVPUSH Q5M PRN PRN Reason: Oversedation Ondansetron HCl (Zofran) 4 mg IVPUSH Q6H PRN PRN Reason: Nausea/Vomiting Last Admin: 07/01/17 00:37 Dose: 4 mg Oxycodone/Acetaminophen (Percocet 325-5 Mg) 1 - 2 tab PO Q4H PRN PRN Reason: Pain Last Admin: 07/01/17 00:38 Dose: 2 tab Ubidecarenone 200 Mg 0 each PO DAILY [facility] Potassium Chloride (Klor-Con M20) 20 meq PO TID [facility] Last Admin: 06/30/17 20:03 Dose: Not Given Rosuvastatin Calcium (Crestor) 5 mg PO DAILY [facility] Senna (Senna) 8.6 mg PO BID PRN PRN Reason: Constipation Sodium Chloride (Saline Flush) 10 ml FLUSH ASDIRECTED PRN PRN Reason: Keep Vein Open Discontinued Medications Bupivacaine HCl (Marcaine 0.25%) Confirm Administered Dose 30 ml .ROUTE .STK- MED ONE Stop: 06/30/17 10:49 Last Admin: 06/30/17 13:13 Dose: 30 ml Cefazolin Sodium (Ancef) Confirm Administered Dose 2 gm .ROUTE .STK-MED ONE Stop: 06/30/17 10:49 Last Admin: 06/30/17 13:09 Dose: 2 gm Cefazolin Sodium (Ancef) Confirm Administered Dose 2 gm .ROUTE .STK-MED ONE Stop: 06/30/17 11:46 Morphine Sulfate 8 mg/Epinephrine HCl 0.3 mg/Cefuroxime Sodium 750 mg/Ketorolac Tromethamine 30 mg/Sodium Chloride 27.9 ml 0 mg .XX ONETIME ONE Stop: 06/30/17 13:46 Last Admin: 06/30/17 19:50 Dose: Not Given Diphenhydramine HCl (Benadryl) 25 mg IVPUSH Q6H PRN PRN Reason: Pruritis Stop: 06/30/17 23:00 Ephedrine Sulfate (Ephedrine Sulfate) Confirm Administered Dose 50 mg .ROUTE .STK-MED ONE Stop: 06/30/17 12:46 Fentanyl (Sublimaze) Confirm Administered Dose 100 mcg .ROUTE .STK-MED ONE Stop: 06/30/17 11:40 Fentanyl (Sublimaze) 50 mcg IVPUSH Q5M PRN PRN Reason: Pain Stop: 06/30/17 14:00 Lactated Ringer's (Ringers, Lactated) 1,000 mls @ 125 mls/hr IV ASDIRECTED [facility] Last Admin: 06/30/17 14:23 Dose: 125 mls/hr Lidocaine HCl (Xylocaine-Mpf 1%) Confirm Administered Dose 4 mls @ as directed .ROUTE .STK-MED ONE Stop: 06/30/17 11:46 Iodine (Iodine 2% Mild Tincture) Confirm Administered Dose 30 ml .ROUTE .STK- MED ONE Stop: 06/30/17 10:49 Last Admin: 06/30/17 13:04 Dose: 18 ml Lidocaine/Sodium Bicarbonate (Buffered Lidocaine 1% In Ns 8.4%) 0.25 ml IV ONETIME PRN PRN Reason: Prior to IV Start Stop: 06/30/17 18:00 Last Admin: 06/30/17 11:14 Dose: 0.25 ml Meperidine HCl (Demerol) 12.5 mg IVPUSH ONETIME PRN PRN Reason: Shivering Stop: 06/30/17 18:00 Midazolam HCl (Versed 1 Mg/Ml) Confirm Administered Dose 2 mg .ROUTE .STK-MED ONE Stop: 06/30/17 11:40 Morphine Sulfate (Duramorph Pf) Confirm Administered Dose 10 mg .ROUTE .STK-MED ONE Stop: 06/30/17 11:40 Ondansetron HCl (Zofran) Confirm Administered Dose 4 mg .ROUTE .STK-MED ONE Stop: 06/30/17 11:46 Ondansetron HCl (Zofran) 4 mg IVPUSH ONETIME PRN PRN Reason: Nausea/Vomiting Stop: 06/30/17 18:00 Propofol (Diprivan 20 Ml) Confirm Administered Dose 600 mg .ROUTE .STK-MED ONE Stop: 06/30/17 11:39 Tranexamic Acid (Cyklokapron) Confirm Administered Dose 1,000 mg .ROUTE .STK- MED ONE Stop: 06/30/17 10:49 Last Admin: 06/30/17 13:20 Dose: 1,000 mg Vancomycin HCl (Vancomycin) Confirm Administered Dose 1 gm .ROUTE .STK-MED ONE Stop: 06/30/17 10:49 Last Admin: 06/30/17 13:15 Dose: 1 gm - Exam Quality Assessment: DVT Prophylaxis General: Alert, Oriented, Cooperative, No Acute Distress HEENT: Pupils Equal, EOMI, Mucous Membr. Moist/[place] Neck: Supple Lungs: Clear to Auscultation, Normal Respiratory Effort Cardiovascular: Regular Rate, Regular Rhythm GI/Abdominal Exam: Normal Bowel Sounds, Soft, Non-Tender (Female) Exam: Deferred Extremities: No Pedal Edema, Normal Capillary Refill Peripheral Pulses: 2+: Dorsalis Pedis (L), Dorsalis Pedis (R) Skin: Warm, Dry Wound/Incisions: Dressing Dry and Intact Neurological: No New Focal Deficit Psy/Mental Status: Alert, Normal Affect, Normal Mood Consult PN Assessment/Plan POD#: 1 Procedures: Procedures CULTURE AEROBIC IDENTIFY (08/19/14) GAIT TRAINING THERAPY (01/28/17) HEPATOBIL SYST IMAGE W/DRUG (02/01/15) MANUAL THERAPY 1/> REGIONS (01/28/17) MASSAGE THERAPY (01/28/17) MICROBE SUSCEPTIBLE LACI (08/19/14) NEUROMUSCULAR REEDUCATION (01/28/17) PT EVAL LOW COMPLEX 20 MIN (01/03/17) THERAPEUTIC EXERCISES (02/06/17) URINALYSIS AUTO W/O SCOPE (02/15/15) URINE BACTERIA CULTURE (08/19/14) X-RAY EXAM NECK SPINE 2-3 VW (04/01/17) X-RAY EXAM THORAC SPINE 2VWS (04/01/17) (1) S/P total knee arthroplasty SNOMED Code(s): 3677844706716, 9633618322332 Code(s): Z96.659 - PRESENCE OF UNSPECIFIED ARTIFICIAL KNEE JOINT Priority: High Current Visit: Yes Qualifiers: Laterality: left Qualified Code(s): Z96.652 - Presence of left artificial knee joint (2) Osteoarthritis SNOMED Code(s): 007693405 Code(s): M19.90 - UNSPECIFIED OSTEOARTHRITIS, UNSPECIFIED SITE Priority: High Current Visit: Yes Qualifiers: Osteoarthritis location: knee Osteoarthritis type: primary Laterality: left Qualified Code(s): M17.12 - Unilateral primary osteoarthritis, left knee (3) HTN (hypertension) SNOMED Code(s): 92540599 Code(s): I10 - ESSENTIAL (PRIMARY) HYPERTENSION Priority: Medium Current Visit: No Qualifiers: Hypertension type: essential hypertension Qualified Code(s): I10 - Essential (primary) hypertension (4) Hypothyroid SNOMED Code(s): 80521044 Code(s): E03.9 - HYPOTHYROIDISM, UNSPECIFIED Priority: Medium Current Visit: No Qualifiers: Hypothyroidism type: unspecified Qualified Code(s): E03.9 - Hypothyroidism , unspecified (5) Post-operative nausea and vomiting SNOMED Code(s): 9719161 Code(s): R11.2 - NAUSEA WITH VOMITING, UNSPECIFIED; Z98.890 - OTHER SPECIFIED POSTPROCEDURAL STATES Priority: High Current Visit: Yes Comment : Resolved Problem List Initiated/Reviewed/Updated: Yes Plan: I/P: S/P total knee arthroplasty, POD # 1, Dr. Patricia - Pain management and DVT prophylax - PT/OT - RT/IS - Hgb 11.9 Chronic conditions: Hypertension, stable Hypothyroidism Other: GI Prophylax CM/SW for DC planning- okay from hospitalist standpoint for discharge home today. Patient is full Code status.
[2017-07-01] MEDS: Famotidine 20 MG Tab PO SCH (08:19)
[2017-07-01] MEDS: Potassium Chloride 20 MEQ Tab.ER PO SCH ×2 (08:19→15:01)
[2017-07-01] MEDS ORDERED: Losartan 25 MG Tab PO SCH (09:00)
[2017-07-01] MEDS ORDERED: Aspirin 325 MG Tab.EC PO SCH (09:00)
[2017-07-01] MEDS ORDERED: Metoprolol Succinate 25 MG Tab.ER PO SCH (09:00)
[2017-07-01] MEDS ORDERED: Levothyroxine 75 MCG Tab PO SCH (09:00)
[2017-07-01] MEDS ORDERED: Rosuvastatin 10 MG Tab PO SCH (09:00)
[2017-07-01] MEDS ORDERED: Hydrochlorothiazide 25 MG Tab PO SCH (09:00)
[2017-07-01] MEDS ORDERED: UBIDECARENONE 200 MG PO SCH (09:00)
--- NOTE | 2017-07-01 09:47 | PCM48HPAN ---
Post Anesthesia Note - EVALUATION WITHIN 48HRS OF ANESTHETIC Vital Signs in Normal Range: Yes Patient Participated in Evaluation: Yes Respiratory Function Stable: Yes Airway Patent: Yes Cardiovascular Function Stable: Yes Hydration Status Stable: Yes Pain Control Satisfactory: Yes Nausea and Vomiting Control Satisfactory: Yes Mental Status Recovered: Yes - COMMENTS/OBSERVATIONS Free Text/Narrative:: Up walking today. Denies headache. Denies back pain. Denies numbness and/or tingling in her legs. Voiding without problem. No further questions at this time. No complications noted.
[2017-07-01] MEDS: Ketorolac 15 MG/ML SDV IVPUSH PRN (10:16)
[2017-07-01 14:12] VITALS: BP 132/62
[2017-07-01] MEDS ORDERED: Pneumococcal Polyvalent-23 Vaccine 0.5 ML SDV IM ONE (14:40)
--- NOTE | 2017-07-02 10:28 | PCM.SURGPN ---
- General Info Date of Service: 07/01/17 POD#: 1 Functional Status: Reports: Pain Controlled, Tolerating Diet, Ambulating, Urinating, Incentive Spirometry - Review of Systems Musculoskeletal: Reports: Other (The pt has met inpatient therapy goals and feels prepared for discharge to home.) - Patient Data Vitals - Most Recent: Last Vital Signs Temp 98.0 F 07/01/17 14:11 Pulse 88 07/01/17 14:11 Resp 16 07/01/17 14:11 BP 132/62 07/01/17 14:11 Pulse Ox 96 07/01/17 14:11 Weight - Most Recent: 181 lb 8 oz I&O - Last 24 Hours: Intake & Output 07/01/17 07/02/17 07/02/17 22:59 06:59 14:59 Intake Total 50 Output Total 1000 Balance -950 Med Orders - Current: Current Medications Discontinued Medications Aspirin (Ecotrin) 325 mg PO BID [facility] Last Admin: 07/01/17 08:19 Dose: 325 mg Bisacodyl (Dulcolax) 5 mg PO DAILY PRN PRN Reason: Constipation Bupivacaine HCl (Marcaine 0.25%) Confirm Administered Dose 30 ml .ROUTE .STK- MED ONE Stop: 06/30/17 10:49 Last Admin: 06/30/17 13:13 Dose: 30 ml Cefazolin Sodium (Ancef) Confirm Administered Dose 2 gm .ROUTE .STK-MED ONE Stop: 06/30/17 10:49 Last Admin: 06/30/17 13:09 Dose: 2 gm Cefazolin Sodium (Ancef) Confirm Administered Dose 2 gm .ROUTE .STK-MED ONE Stop: 06/30/17 11:46 Morphine Sulfate 8 mg/Epinephrine HCl 0.3 mg/Cefuroxime Sodium 750 mg/Ketorolac Tromethamine 30 mg/Sodium Chloride 27.9 ml 0 mg .XX ONETIME ONE Stop: 06/30/17 13:46 Last Admin: 06/30/17 19:50 Dose: Not Given Cyclobenzaprine HCl (Flexeril) 10 mg PO TID PRN PRN Reason: Spasms Last Admin: 07/01/17 15:04 Dose: 10 mg Diphenhydramine HCl (Benadryl) 25 mg IVPUSH Q4H PRN PRN Reason: Nausea Diphenhydramine HCl (Benadryl) 25 mg IVPUSH Q6H PRN PRN Reason: Pruritis Stop: 06/30/17 23:00 Docusate Sodium (Colace) 100 mg PO BID PRN PRN Reason: Constipation Ephedrine Sulfate (Ephedrine Sulfate) Confirm Administered Dose 50 mg .ROUTE .STK-MED ONE Stop: 06/30/17 12:46 Famotidine (Pepcid) 20 mg PO Q12H [facility] Last Admin: 07/01/17 08:19 Dose: 20 mg Fentanyl (Sublimaze) Confirm Administered Dose 100 mcg .ROUTE .STK-MED ONE Stop: 06/30/17 11:40 Fentanyl (Sublimaze) 50 mcg IVPUSH Q5M PRN PRN Reason: Pain Stop: 06/30/17 14:00 Hydrochlorothiazide (Hydrochlorothiazide) 25 mg PO DAILY [facility] Last Admin: 07/01/17 08:18 Dose: 25 mg Lactated Ringer's (Ringers, Lactated) 1,000 mls @ 125 mls/hr IV ASDIRECTED [facility] Last Admin: 06/30/17 14:23 Dose: 125 mls/hr Cefazolin Sodium/Dextrose 2 gm (/ Premix) 50 mls @ 100 mls/hr IV Q8H [facility] Stop: 07/01/17 11:29 Last Admin: 07/01/17 12:29 Dose: 100 mls/hr Lidocaine HCl (Xylocaine-Mpf 1%) Confirm Administered Dose 4 mls @ as directed .ROUTE .STK-MED ONE Stop: 06/30/17 11:46 Iodine (Iodine 2% Mild Tincture) Confirm Administered Dose 30 ml .ROUTE .STK- MED ONE Stop: 06/30/17 10:49 Last Admin: 06/30/17 13:04 Dose: 18 ml Ketorolac Tromethamine (Toradol) 15 mg IVPUSH Q6H PRN PRN Reason: Pain Last Admin: 07/01/17 10:16 Dose: 15 mg Levothyroxine Sodium (Levothyroxine) 75 mcg PO DAILY [facility] Last Admin: 07/01/17 08:18 Dose: 75 mcg Lidocaine/Sodium Bicarbonate (Buffered Lidocaine 1% In Ns 8.4%) 0.25 ml IV ONETIME PRN PRN Reason: Prior to IV Start Stop: 06/30/17 18:00 Last Admin: 06/30/17 11:14 Dose: 0.25 ml Losartan Potassium (Cozaar) 50 mg PO DAILY [facility] Last Admin: 07/01/17 08:18 Dose: 50 mg Magnesium Hydroxide (Milk Of Magnesia) 30 ml PO BID PRN PRN Reason: Constipation Meperidine HCl (Demerol) 12.5 mg IVPUSH ONETIME PRN PRN Reason: Shivering Stop: 06/30/17 18:00 Metoprolol Succinate (Toprol Xl) 25 mg PO DAILY [facility] Last Admin: 07/01/17 08:19 Dose: 25 mg Midazolam HCl (Versed 1 Mg/Ml) Confirm Administered Dose 2 mg .ROUTE .STK-MED ONE Stop: 06/30/17 11:40 Morphine Sulfate (Morphine) 2 mg IVPUSH Q2H PRN PRN Reason: Breakthrough Pain Morphine Sulfate (Duramorph Pf) Confirm Administered Dose 10 mg .ROUTE .STK-MED ONE Stop: 06/30/17 11:40 Naloxone HCl (Narcan) 0.1 mg IVPUSH Q5M PRN PRN Reason: Oversedation Ondansetron HCl (Zofran) 4 mg IVPUSH Q6H PRN PRN Reason: Nausea/Vomiting Last Admin: 07/01/17 00:37 Dose: 4 mg Ondansetron HCl (Zofran) Confirm Administered Dose 4 mg .ROUTE .STK-MED ONE Stop: 06/30/17 11:46 Ondansetron HCl (Zofran) 4 mg IVPUSH ONETIME PRN PRN Reason: Nausea/Vomiting Stop: 06/30/17 18:00 Oxycodone/Acetaminophen (Percocet 325-5 Mg) 1 - 2 tab PO Q4H PRN PRN Reason: Pain Last Admin: 07/01/17 14:22 Dose: 2 tab Ubidecarenone 200 Mg 0 each PO DAILY [facility] Last Admin: 07/01/17 12:29 Dose: Not Given Pneumococcal Polyvalent Vaccine (Pneumovax 23) 0.5 ml IM .ONCE ONE Stop: 07/01/17 14:41 Last Admin: 07/01/17 15:05 Dose: 0.5 ml Potassium Chloride (Klor-Con M20) 20 meq PO TID [facility] Last Admin: 07/01/17 15:01 Dose: 20 meq Propofol (Diprivan 20 Ml) Confirm Administered Dose 600 mg .ROUTE .STK-MED ONE Stop: 06/30/17 11:39 Rosuvastatin Calcium (Crestor) 5 mg PO DAILY [facility] Last Admin: 07/01/17 08:20 Dose: 5 mg Senna (Senna) 8.6 mg PO BID PRN PRN Reason: Constipation Sodium Chloride (Saline Flush) 10 ml FLUSH ASDIRECTED PRN PRN Reason: Keep Vein Open Tranexamic Acid (Cyklokapron) Confirm Administered Dose 1,000 mg .ROUTE .STK- MED ONE Stop: 06/30/17 10:49 Last Admin: 06/30/17 13:20 Dose: 1,000 mg Vancomycin HCl (Vancomycin) Confirm Administered Dose 1 gm .ROUTE .STK-MED ONE Stop: 06/30/17 10:49 Last Admin: 06/30/17 13:15 Dose: 1 gm - Exam Wound/Incisions: Dressing Dry and Intact General: Alert, Cooperative, No Acute Distress Lungs: Normal Respiratory Effort Extremities: Other (NVS intact for BLE. Brent's negative for BLE. ) - Problem List Review Problem List Initiated/Reviewed/Updated: Yes - My Orders Last 24 Hours: Active Orders 24 hr Category Date Time Status Ready for Discharge [RC] PER UNIT ROUTINE Care 07/01/17 12:15 Active - Assessment Assessment (Free Text/Narrative):: POD#1 - left TKA - Plan Plan (Free Text/Narrative):: 1. Hgb 11.9 today. 2. 325mg ASA PO BID, frequent mobility, TEDs. 3. Outpatient P.T. 4. Discharge to home today. The pt was evaluated by Dr. Gomez today.
--- NOTE | 2017-07-02 10:30 | PCM.DCSUM1 ---
Discharge Summary - Hospital Course Brief History: Jeana is a 61 yo female who underwent left TKA with Dr. Gomez on 06-30-2017. The procedure was completed under spinal anesthesia. The pt tolerated the procedure well and was admitted to the Medical-Surgical Unit. Medical management was provided by the Hospitalist service. The pt's Hospital course was uneventful. The pt's Hgb on POD#1 was 11.9. On POD#1, 325mg ASA BID was initiated for VTE prophylaxis. SCDs and TEDs were also ordered. A Mepilex dressing was placed at the incision site at the time of surgery and remained clean and dry. The pt participated in P.T. and O.T. and progressed well. The pt was allowed to WBAT. On POD#1, the pt was deemed appropriate to discharge to home with family. - Discharge Data Discharge Date: 07/01/17 Discharge Disposition: Home, Self-Care 01 Condition: Good - Patient Summary/Data Operative Procedure(s) Performed: left total knee arthroplasty Consults: Consultations 06/30/17 07:07 Consult to Physician [CONS] Routine OT Evaluation and Treatment [CONS] Routine 06/30/17 07:16 PT Evaluation and Treatment [CONS] Routine - Patient Instructions Diet: Heart Healthy Diet, Usual Diet as Tolerated Activity: Apply Ice, As Tolerated, Elevate Extremity, Full Weight Bearing Driving: Do Not Drive Showering/Bathing: May Shower Wound/Incision Care: Keep Operative Site/Wound Site Clean and Dry, Do NOT Change Dressing Notify Provider of: Fever, Increased Pain, Swelling and Redness, Drainage, Nausea and/or Vomiting Other/Special Instructions: Please get up and moving around every hour while awake. This helps to prevent blood clots. Please use your walker and have help with mobility as needed. Please take a 325mg ASPIRIN TWICE DAILY. This also helps to prevent blood clots. The aspirin is being used for blood clot prevention and not for pain management, so please do not miss a dose of the medication. You may schedule for P.T. Use the pain medication as needed. The medication may cause drowsiness and constipation. Contact your primary care provider for instructions if you are constipated. You may use a stool softener like docusate sodium or Colace 100mg twice daily and/or a laxative like Miralax daily for constipation. Wear the HOMERO hose during the day and you may remove these at night. Place ice to the knee often and elevate the limb to decrease swelling. Place a towel between your skin and the blue pad. Call the Clinic with questions or concerns - [phone]. - Discharge Plan Prescriptions/Med Rec: Acetaminophen/oxyCODONE [Percocet 325-5 MG] 1 - 2 tab PO Q4H PRN #60 tablet PRN Reason: Pain Aspirin [Ecotrin] 325 mg PO BID #84 tab.ec Cyclobenzaprine [Flexeril] 10 mg PO TID PRN #40 tablet PRN Reason: muscle spasms Home Medications: Home Meds Hydrochlorothiazide 25 mg PO DAILY 12/19/16 [History] Levothyroxine Sodium 75 mcg PO DAILY 12/19/16 [History] Losartan [Cozaar] 50 mg PO DAILY 12/19/16 [History] Metoprolol Succinate 25 mg PO DAILY 12/19/16 [History] Potassium Chloride 20 meq PO TID 12/19/16 [History] Rosuvastatin [Crestor] 5 mg PO DAILY 12/19/16 [History] Cranberry Conc/C/Bacill Coag [Cranberry Tablet] 1 tab PO DAILY 06/27/17 [History ] Ubidecarenone [Coq-10] 200 mg PO DAILY 06/27/17 [History] MV,Ca,Min/FA/Herbal No.157 [Estroven Max Strength Caplet] 1 tab PO DAILY [History] Acetaminophen/oxyCODONE [Percocet 325-5 MG] 1 - 2 tab PO Q4H PRN #60 tablet [Rx] Aspirin [Ecotrin] 325 mg PO BID #84 tab.ec 07/01/17 [Rx] Cyclobenzaprine [Flexeril] 10 mg PO TID PRN #40 tablet 07/01/17 [Rx] Docusate Sodium [Colace] 100 mg PO BID PRN cap 07/01/17 [Rx] Patient Handouts: Total Knee Replacement, Care After, [id number], Total Knee Replacement, [id number] Referrals: Ani Chandler PA-C [Physician Hotel Room Attendant] - (Please see Ani Chandler on Friday07/08/17 at 11:00 AM and on Friday07/15/17 at 9:30 AM) - Patient Data Vitals - Most Recent: Last Vital Signs Temp 98.0 F 07/01/17 14:11 Pulse 88 07/01/17 14:11 Resp 16 07/01/17 14:11 BP 132/62 07/01/17 14:11 Pulse Ox 96 07/01/17 14:11 Weight - Most Recent: 181 lb 8 oz I&O - Last 24 hours: Intake & Output 07/01/17 07/02/17 07/02/17 22:59 06:59 14:59 Intake Total 50 Output Total 1000 Balance -950 Med Orders - Current: Current Medications Discontinued Medications Aspirin (Ecotrin) 325 mg PO BID CALOS Last Admin: 07/01/17 08:19 Dose: 325 mg Bisacodyl (Dulcolax) 5 mg PO DAILY PRN PRN Reason: Constipation Bupivacaine HCl (Marcaine 0.25%) Confirm Administered Dose 30 ml .ROUTE .STK- MED ONE Stop: 06/30/17 10:49 Last Admin: 06/30/17 13:13 Dose: 30 ml Cefazolin Sodium (Ancef) Confirm Administered Dose 2 gm .ROUTE .STK-MED ONE Stop: 06/30/17 10:49 Last Admin: 06/30/17 13:09 Dose: 2 gm Cefazolin Sodium (Ancef) Confirm Administered Dose 2 gm .ROUTE .STK-MED ONE Stop: 06/30/17 11:46 Morphine Sulfate 8 mg/Epinephrine HCl 0.3 mg/Cefuroxime Sodium 750 mg/Ketorolac Tromethamine 30 mg/Sodium Chloride 27.9 ml 0 mg .XX ONETIME ONE Stop: 06/30/17 13:46 Last Admin: 06/30/17 19:50 Dose: Not Given Cyclobenzaprine HCl (Flexeril) 10 mg PO TID PRN PRN Reason: Spasms Last Admin: 07/01/17 15:04 Dose: 10 mg Diphenhydramine HCl (Benadryl) 25 mg IVPUSH Q4H PRN PRN Reason: Nausea Diphenhydramine HCl (Benadryl) 25 mg IVPUSH Q6H PRN PRN Reason: Pruritis Stop: 06/30/17 23:00 Docusate Sodium (Colace) 100 mg PO BID PRN PRN Reason: Constipation Ephedrine Sulfate (Ephedrine Sulfate) Confirm Administered Dose 50 mg .ROUTE .STK-MED ONE Stop: 06/30/17 12:46 Famotidine (Pepcid) 20 mg PO Q12H [facility] Last Admin: 07/01/17 08:19 Dose: 20 mg Fentanyl (Sublimaze) Confirm Administered Dose 100 mcg .ROUTE .STK-MED ONE Stop: 06/30/17 11:40 Fentanyl (Sublimaze) 50 mcg IVPUSH Q5M PRN PRN Reason: Pain Stop: 06/30/17 14:00 Hydrochlorothiazide (Hydrochlorothiazide) 25 mg PO DAILY [facility] Last Admin: 07/01/17 08:18 Dose: 25 mg Lactated Ringer's (Ringers, Lactated) 1,000 mls @ 125 mls/hr IV ASDIRECTED [facility] Last Admin: 06/30/17 14:23 Dose: 125 mls/hr Cefazolin Sodium/Dextrose 2 gm (/ Premix) 50 mls @ 100 mls/hr IV Q8H [facility] Stop: 07/01/17 11:29 Last Admin: 07/01/17 12:29 Dose: 100 mls/hr Lidocaine HCl (Xylocaine-Mpf 1%) Confirm Administered Dose 4 mls @ as directed .ROUTE .STK-MED ONE Stop: 06/30/17 11:46 Iodine (Iodine 2% Mild Tincture) Confirm Administered Dose 30 ml .ROUTE .STK- MED ONE Stop: 06/30/17 10:49 Last Admin: 06/30/17 13:04 Dose: 18 ml Ketorolac Tromethamine (Toradol) 15 mg IVPUSH Q6H PRN PRN Reason: Pain Last Admin: 07/01/17 10:16 Dose: 15 mg Levothyroxine Sodium (Levothyroxine) 75 mcg PO DAILY [facility] Last Admin: 07/01/17 08:18 Dose: 75 mcg Lidocaine/Sodium Bicarbonate (Buffered Lidocaine 1% In Ns 8.4%) 0.25 ml IV ONETIME PRN PRN Reason: Prior to IV Start Stop: 06/30/17 18:00 Last Admin: 06/30/17 11:14 Dose: 0.25 ml Losartan Potassium (Cozaar) 50 mg PO DAILY [facility] Last Admin: 07/01/17 08:18 Dose: 50 mg Magnesium Hydroxide (Milk Of Magnesia) 30 ml PO BID PRN PRN Reason: Constipation Meperidine HCl (Demerol) 12.5 mg IVPUSH ONETIME PRN PRN Reason: Shivering Stop: 06/30/17 18:00 Metoprolol Succinate (Toprol Xl) 25 mg PO DAILY [facility] Last Admin: 07/01/17 08:19 Dose: 25 mg Midazolam HCl (Versed 1 Mg/Ml) Confirm Administered Dose 2 mg .ROUTE .STK-MED ONE Stop: 06/30/17 11:40 Morphine Sulfate (Morphine) 2 mg IVPUSH Q2H PRN PRN Reason: Breakthrough Pain Morphine Sulfate (Duramorph Pf) Confirm Administered Dose 10 mg .ROUTE .STK-MED ONE Stop: 06/30/17 11:40 Naloxone HCl (Narcan) 0.1 mg IVPUSH Q5M PRN PRN Reason: Oversedation Ondansetron HCl (Zofran) 4 mg IVPUSH Q6H PRN PRN Reason: Nausea/Vomiting Last Admin: 07/01/17 00:37 Dose: 4 mg Ondansetron HCl (Zofran) Confirm Administered Dose 4 mg .ROUTE .STK-MED ONE Stop: 06/30/17 11:46 Ondansetron HCl (Zofran) 4 mg IVPUSH ONETIME PRN PRN Reason: Nausea/Vomiting Stop: 06/30/17 18:00 Oxycodone/Acetaminophen (Percocet 325-5 Mg) 1 - 2 tab PO Q4H PRN PRN Reason: Pain Last Admin: 07/01/17 14:22 Dose: 2 tab Ubidecarenone 200 Mg 0 each PO DAILY [facility] Last Admin: 07/01/17 12:29 Dose: Not Given Pneumococcal Polyvalent Vaccine (Pneumovax 23) 0.5 ml IM .ONCE ONE Stop: 07/01/17 14:41 Last Admin: 07/01/17 15:05 Dose: 0.5 ml Potassium Chloride (Klor-Con M20) 20 meq PO TID [facility] Last Admin: 07/01/17 15:01 Dose: 20 meq Propofol (Diprivan 20 Ml) Confirm Administered Dose 600 mg .ROUTE .STK-MED ONE Stop: 06/30/17 11:39 Rosuvastatin Calcium (Crestor) 5 mg PO DAILY [facility] Last Admin: 07/01/17 08:20 Dose: 5 mg Senna (Senna) 8.6 mg PO BID PRN PRN Reason: Constipation Sodium Chloride (Saline Flush) 10 ml FLUSH ASDIRECTED PRN PRN Reason: Keep Vein Open Tranexamic Acid (Cyklokapron) Confirm Administered Dose 1,000 mg .ROUTE .STK- MED ONE Stop: 06/30/17 10:49 Last Admin: 06/30/17 13:20 Dose: 1,000 mg Vancomycin HCl (Vancomycin) Confirm Administered Dose 1 gm .ROUTE .STK-MED ONE Stop: 06/30/17 10:49 Last Admin: 06/30/17 13:15 Dose: 1 gm *Q Meaningful Use (DIS) - VTE *Q VTE Criteria *Q: - Stroke *Q Stroke Criteria *Q: - AMI *Q AMI Criteria *Q:
--- NOTE | 2017-07-06 22:29 | OR ---
DATE OF OPERATION: 06/30/2017 SURGEON: Juan J Gomez MD OPERATION PERFORMED: Left total knee arthroplasty. PREOPERATIVE DIAGNOSIS: Left knee osteoarthrosis. POSTOPERATIVE DIAGNOSIS: Left knee osteoarthrosis. ANESTHESIA: Local MAC spinal. ANESTHESIA PROVIDER: Kerwin Escalante. ASSISTANTS: Ani Chandler PA-C and Fina Suggs LPN. ESTIMATED BLOOD LOSS: 150 mL. COMPLICATIONS: None. CONDITION: Stable. IMPLANTS: 1. Miles size 4 PS press-fit femur. 2. Miles size 3 press-fit tibia. 3. Girish 9 mm X3 PS polyethylene. 4. A 29 x 9 mm asymmetric press-fit patella. DESCRIPTION OF PROCEDURE: The patient was identified in the preop holding area. Proper site was marked and identified by the surgeon. The patient was taken back to the operating theater. After adequate anesthesia, the patient had a nonsterile tourniquet applied and the left lower extremity was then sterilely prepped and draped in the usual sterile fashion. OR time-out was performed. The patient received 2 g IV Ancef. At this time, the left lower extremity was exsanguinated. Tourniquet was insufflated to 250 mmHg. A standard medial parapatellar incision was made and an arthrotomy was created. Deep fibers of the MCL were raised and anterior fat pad was resected. Attention was turned to patella. The patella measured 23 and resected to a 14 for a 29 x 9 mm patella. Drill holes were then drilled. Attention was turned to the distal femur. Intramedullary distal femoral hole was then drilled and the intramedullary distal femoral cutting guide was placed. 8 mm was dissected off the distal femur and was found to be an adequate resection. Size 4 was found to have adequate coverage with a sizing guide. The epicondylar access holes were then drilled using Barnwell line and epicondyles as reference. A 4 in 1 cutting block was then placed and anterior and posterior and anterior, posterior, and chamfer cuts were then completed. It was found to have adequate resection. At this time, the box cut was then completed with a size 4 box cut. Attention was turned to the tibia. Posterior, medial, and lateral retractors were placed. Extramedullary tibial cutting guide was then placed in the old footprint of the ACL and was aligned with the center of the ankle and set for roughly 0-3 degrees of posterior slope. At this time, 9 mm was measured off the less affected lateral side and the cutting block was pinned into place. The tibial resection was then carried out and was found to have an adequate resection. The medial and lateral meniscus were removed along with any posterior osteophytes. Size 3 baseplate was found to have adequate coverage. At this time, trial implants were placed and a 9 mm trial spacer was placed. The patient had full extension and flexion and stable throughout range of motion. At this time, the tibia was stamped and drilled in proper rotation. Drill holes were placed in the distal femur for the press-fit femur. At this time, the size 3 tibia press fit component was impacted into place, the size 4 press-fit femur was then impacted into place, 9 mm PS X3 polyethylene was then impacted into place, 29 x 9 mm patella was then press-fit into place. The tourniquet was deflated. All bleeders were cauterized. 1 L dilute Betadine solution was then irrigated through the knee along with 3 L pulse lavage irrigation with Ancef. Next, periarticular injection was completed. Topical tranexamic acid was placed along with topical vancomycin powder. #2 barbed suture was used for closure of the medial parapatellar arthrotomy and 2-0 Vicryl was used subcutaneously and Monocryl and Prineo were used for the skin. The patient tolerated, had a sterile soft dressing applied, and was then sent to the PACU in stable condition. ANTHONY /[id number]
== END 2017-07-01 15:22 | disposition home or self-care (01) | DRG 302 ==
LOC: JD.MS 06-30 10:51
PROVIDERS: ADMIT Orthopaedic Surgery; ATTEND Orthopaedic Surgery
PROC: 0SRD0J9 Replacement of Left Knee Joint with Synthetic Substitute, Cemented, Open Approach (ICD-10-PCS; principal; 2017-06-30)
DX: M17.12 Unilateral primary osteoarthritis, left knee (principal); Z96.651 Presence of right artificial knee joint; E66.9 Obesity, unspecified; E03.9 Hypothyroidism, unspecified; I10 Essential (primary) hypertension; D21.9 Benign neoplasm of connective and other soft tissue, unspecified; Z79.82 Long term (current) use of aspirin; Z79.899 Other long term (current) drug therapy; Z88.1 Allergy status to other antibiotic agents; Z88.2 Allergy status to sulfonamides; H54.7 Unspecified visual loss; M06.9 Rheumatoid arthritis, unspecified; R11.2 Nausea with vomiting, unspecified; K21.9 Gastro-esophageal reflux disease without esophagitis; Z68.29 Body mass index [BMI] 29.0-29.9, adult
CPT/HCPCS: 01402; 36415; 73560-26-LT; 73560-LT; 80053; 85027; 87641; 90732; 94762; 97110-GP; 97116-GP; 97162-GP; 97165-GO; 97535-GO; A9270-GY; C1776; G0009; J0171; J0690; J0697; J1885; J2250; J2270; J2405; J2704; J3010; J3370; J3490; J7120

== ENCOUNTER 2018-11-27 07:08 | Day surgery (SDC) | payer BC ==
[~2018-11-27 07:08] MED LIST changes: +Lactated Ringers 1,000 ML IV SCH; +Lidocaine 1%/Sod Bicarbonate in NS 8.4% 1 ML Syringe IDERM PRN; -Lidocaine 1%/Sod Bicarbonate in NS 8.4% 1 ML Syringe IV PRN; -Morphine 2 MG/ML Syringe IVPUSH PRN
[2018-11-27] MEDS ORDERED: Lidocaine 1% 4 ML ONE (07:14)
[2018-11-27] MEDS ORDERED: fentaNYL 100 MCG/2 ML SDV ONE (07:15)
[2018-11-27] MEDS ORDERED: Propofol 200 MG/20 ML SDV ONE (07:15)
--- NOTE | 2018-11-27 07:46 | PCM.PREANE ---
Preanesthetic Assessment - Procedure Proposed Procedure: egd - Anesthesia/Transfusion/Family Hx Anesthesia History: Prior Anesthesia Without Reaction Family History of Anesthesia Reaction: No Transfusion History: No Prior Transfusion(s) Type of Transfusion Reactions: Reports: Unknown Intubation History: Unknown - Review of Systems General: Night Sweats (normal for age) Pulmonary: No Symptoms Cardiovascular: Palpitations (her whole life- ekg and stress tests ok) Gastrointestinal: No Symptoms Neurological: No Symptoms Other: Reports: Liver Problems (fatty), Thyroid Problems, Depression (no treatment) - Physical Assessment NPO Status Date: 11/26/18 NPO Status Time: 22:30 O2 Sat by Pulse Oximetry: 99 Respiratory Rate: 16 Vital Signs: Last Vital Signs Temp 98.2 F 11/27/18 07:15 Pulse 64 11/27/18 07:15 Resp 16 11/27/18 07:15 BP 129/71 11/27/18 07:15 Pulse Ox 99 11/27/18 07:15 Height: 5 ft 4 in Weight: 84.822 kg ASA Class: 2 Mental Status: Alert & Oriented x3 Airway Class: Mallampati = 1 Dentition: Reports: Broken Tooth/Teeth Thyro-Mental Finger Breadths: 3 Mouth Opening Finger Breadths: 3 ROM/Head Extension: Full Lungs: Clear to Auscultation, Normal Respiratory Effort Cardiovascular: Regular Rate, Regular Rhythm - Allergies Allergies/Adverse Reactions: Allergies Allergy/AdvReac Type Severity Reaction Status Date / Time erythromycin base AdvReac Drowsiness Verified 06/27/17 14:53 Sulfa (Sulfonamide AdvReac urinary Verified 06/27/17 14:53 Antibiotics) urgency - Blood Blood Available: No - Anesthesia Plan Beta Lizett: Metoprolol Med Last Dose Date: 11/27/18 Med Last Dose Time: 05:30 - Acknowledgements Anesthesia Type Planned: MAC Pt an Appropriate Candidate for the Planned Anesthesia: Yes Alternatives and Risks of Anesthesia Discussed w Pt/Guardian: Yes Pt/Guardian Understands and Agrees with Anesthesia Plan: Yes PreAnesthesia Questionnaire HEENT History: Reports: Impaired Vision Other HEENT History: wears glasses Cardiovascular History: Reports: High Cholesterol, Hypertension Respiratory History: Reports: None Gastrointestinal History: Reports: GERD Genitourinary History: Reports: None LABORER ELECTROPLATING History: Reports: Other (See Below) Other OB/BYN History: breast cyst, fibroid tumor Musculoskeletal History: Reports: RA Neurological History: Reports: None Psychiatric History: Reports: None Endocrine/Metabolic History: Reports: Hypothyroidism, Obesity/BMI 30+ Hematologic History: Reports: None Immunologic History: Reports: None Oncologic (Cancer) History: Reports: None Dermatologic History: Reports: None - Infectious Disease History Infectious Disease History: Reports: None - Past Surgical History Head Surgeries/Procedures: Reports: None HEENT Surgical History: Reports: Adenoidectomy, Tonsillectomy Cardiovascular Surgical History: Reports: None Respiratory Surgical History: Reports: None GI Surgical History: Reports: Colonoscopy, EGD Female Surgical History: Reports: Breast Biopsy, D&C, Hysterectomy Endocrine Surgical History: Reports: None Neurological Surgical History: Reports: None Musculoskeletal Surgical History: Reports: None, Knee Replacement Other Musculoskeletal Surgeries/Procedures:: Right total knee replacement Dermatological Surgical History: Reports: None - SUBSTANCE USE Smoking Status *Q: Never Smoker Tobacco Use Within Last Twelve Months: No Second Hand Smoke Exposure: No Days Per Week of Alcohol Use: 0 Recreational Drug Use History: No - HOME MEDS Home Medications: Home Meds Levothyroxine Sodium 75 mcg PO DAILY 12/19/16 [History] Metoprolol Succinate 25 mg PO DAILY 12/19/16 [History] Potassium Chloride 20 meq PO TID 12/19/16 [History] Rosuvastatin [Crestor] 5 mg PO DAILY 12/19/16 [History] Cranberry Conc/C/Bacill Coag [Cranberry Tablet] 1 tab PO DAILY 06/27/17 [History ] Ubidecarenone [Coq-10] 200 mg PO DAILY 06/27/17 [History] MV,Ca,Min/FA/Herbal No.157 [Estroven Max Strength Caplet] 1 tab PO DAILY [History] Aspirin [Ecotrin] 325 mg PO BID #84 tab.ec 07/01/17 [Rx] Losartan/Hydrochlorothiazide [Hyzaar 100-25 Tablet] 1 tab PO DAILY 11/27/18 [ History] Omeprazole Magnesium [Prilosec Otc] 20 mg PO DAILY 11/27/18 [History] - CURRENT (IN HOUSE) MEDS Current Meds: Current Medications Lactated Ringer's (Ringers, Lactated) 1,000 mls @ 125 mls/hr IV ASDIRECTED CALOS Stop: 11/27/18 23:00 Lidocaine/Sodium Bicarbonate (Buffered Lidocaine 1% In Ns 8.4%) 0.25 ml IDERM ONETIME PRN PRN Reason: Prior to IV Start Stop: 11/27/18 18:00 Sodium Chloride (Saline Flush) 10 ml FLUSH ASDIRECTED PRN PRN Reason: Keep Vein Open Stop: 11/27/18 18:00 Discontinued Medications Fentanyl (Sublimaze) Confirm Administered Dose 100 mcg .ROUTE .STK-MED ONE Stop: 11/27/18 07:16 Lidocaine HCl (Xylocaine-Mpf 1%) Confirm Administered Dose 4 mls @ as directed .ROUTE .STK-MED ONE Stop: 11/27/18 07:15 Propofol (Diprivan 20 Ml) Confirm Administered Dose 400 mg .ROUTE .STK-MED ONE Stop: 11/27/18 07:16
--- NOTE | 2018-11-27 08:25 | PCM.OPNOTE ---
- General Post-Op/Procedure Note Date of Surgery/Procedure: 11/27/18 Operative Procedure(s): Esophagogastroduodenoscopy Findings: 1. diffuse gastritis 2. Residual food particles Post-Op Diagnosis: GERD Anesthesia Technique: MAC Primary Surgeon: Meka Silva Anesthesia Provider: Karli Davison Pathology: Gastric antrum for H. pylori Fluid Replacement, Intraop: 500 Output, Urine Amount: 0 EBL in mLs: 0 Drain/Tube Comments:: none Complications: none apparent Condition: Good
--- NOTE | 2018-11-27 08:25 | PCM48HPAN ---
Post Anesthesia Note - EVALUATION WITHIN 48HRS OF ANESTHETIC Vital Signs in Normal Range: Yes Patient Participated in Evaluation: Yes Respiratory Function Stable: Yes Airway Patent: Yes Cardiovascular Function Stable: Yes Hydration Status Stable: Yes Pain Control Satisfactory: Yes Nausea and Vomiting Control Satisfactory: Yes Mental Status Recovered: Yes Pulse Rate: 62 SaO2: 93 Resp Rate: 16 Temperature: 97.9 F Blood Pressure: 104/64
[2018-11-27 08:26] VITALS: BP 104/64
--- NOTE | 2018-11-27 08:28 | PCM.PRNOTE ---
- Free Text/Narrative Note: Operative Report Date of procedure: November 27, 2018 Preoperative diagnosis: GERD Postoperative diagnosis: . Same Surgeon: Meka Silva M.D. Procedure: EGD Findings: 1. Diffuse gastritis 2. Residual food matter 3. Subcentimeter sliding hiatal hernia Anesthesia: MAC Anesthesiologist: Karli Davison CRNA IV fluids: 500 mL Estimated blood loss: 0 mL Specimens: Gastric antrum for H. pylori. Indication: The patient is an 63 -year-old lady who presented with persistent GERD symptoms. The patient was consented for an EGD with intervention. Risk of bleeding and perforation were discussed. The patient's consent was obtained Description of the procedure: The patient was taken to the endoscopy suite and placed on hemodynamic monitoring. The nurse fence machine operator induced MAC anesthesia. A bite block was placed. The patient was positioned in the left lateral decubitus position. A timeout was performed. The endoscope was gently placed into the mouth to the back of the pharynx and introduced into the esophagus. The scope was gently advanced under direct visualization down to the level of the lower esophageal sphincter. The stomach was then entered. Normal rugal folds were noted. The scope was advanced into the antrum. We noted diffuse gastritis throughout the stomach with linear erythema in addition in the antrum. The pylorus was then entered and the first and second portion of the duodenum was inspected. The duodenal mucosa appeared normal. There were no ulcerations in the duodenum. The scope was then retroflexed in the cardia and fundus were investigated. There was residual pieces of food stuck in the stomach. These were mobilized and there was no underlying abnormality. There was a small sliding hiatal hernia measuring less than 1 cm, with a normal GE junction. No other abnormalities were noted. The scope was then withdrawn while inspecting the esophagus. There was no esophagitis. The procedure was terminated. the patient tolerated the procedure well without any evidence of complications. Meka Silva MD General Surgery
== END 2018-11-27 09:06 | disposition home or self-care (01) ==
LOC: JD.SDS 07:08
PROVIDERS: ATTEND Surgery
DX: K21.9 Gastro-esophageal reflux disease without esophagitis (principal); K29.70 Gastritis, unspecified, without bleeding; K44.9 Diaphragmatic hernia without obstruction or gangrene; I10 Essential (primary) hypertension; E03.9 Hypothyroidism, unspecified; Z79.82 Long term (current) use of aspirin; Z79.899 Other long term (current) drug therapy; Z88.1 Allergy status to other antibiotic agents; Z88.2 Allergy status to sulfonamides
CPT/HCPCS: 43235; J2001; J2704; J3010; J7120; 00731

== ENCOUNTER 2019-02-19 09:06 | Day surgery (SDC) | payer BC ==
--- NOTE | 2019-02-19 10:15 | PCM.PRNOTE ---
EKG INTERPRETATION EKG Date: 02/19/19 Time: 09:43 Rhythm: NSR Rate (Beats/Min): 66 Ramona: Normal P-Wave: Present QRS: Normal ST-T: Normal QT: Normal Comparison: NA - No Prior EKG
[2019-02-19] MEDS ORDERED: Lidocaine 1% 10 ML MDV INJECT ONE (10:26)
[2019-02-19] MEDS ORDERED: fentaNYL 100 MCG/2 ML SDV ONE ×2 (11:39→13:47)
[2019-02-19] MEDS ORDERED: Propofol 200 MG/20 ML SDV ONE (11:39)
[2019-02-19] MEDS ORDERED: Midazolam 1 MG/ML 2 ML SDV ONE (11:40)
[2019-02-19] MEDS ORDERED: Scopolamine 1.5 MG Transdermal Patch TRDERM PRN (11:42)
--- NOTE | 2019-02-19 11:47 | MY ---
Needle localization with mammogram Procedure was explained to the patient. Patient agreed to the exam and consent was signed. Stereotactic marking clip was localized with tomosynthesis. Patient then prepped in the usual fashion. Skin and deep tissues anesthetized with 1% lidocaine. Localization needle then placed and confirmed in position. Spring-hook wire then placed and needle was removed. Two-view mammogram was obtained following wire placement which shows good position of the needle localization wire next to the stereotactic marking clip. Impression: 1. Successful placement of needle localization wire next to the stereotactic marking clip. Diagnostic code #2
--- NOTE | 2019-02-19 11:48 | PCM.PREANE ---
Preanesthetic Assessment - Anesthesia/Transfusion/Family Hx Anesthesia History: Prior Anesthesia Reaction Type of Anesthesia Reaction: Excessive Nausea/Vomiting Family History of Anesthesia Reaction: No Transfusion History: No Prior Transfusion(s) Type of Transfusion Reactions: Reports: Unknown Intubation History: Unknown - Review of Systems General: No Symptoms Pulmonary: No Symptoms Cardiovascular: Other (Occassional skipping beats sensation. Had a stress test years ago and it was negative. EKG today is SR at 66 bpm. ) Gastrointestinal: Other (GERD controlled with medication ) Neurological: No Symptoms Other: Reports: Liver Problems (Fatty Liver), Thyroid Problems (Hypothyroidism) - Physical Assessment NPO Status Date: 02/19/19 NPO Status Time: 00:00 O2 Sat by Pulse Oximetry: 96 Respiratory Rate: 15 Vital Signs: Last Vital Signs Temp 36.6 C 02/19/19 09:15 Pulse 66 02/19/19 09:15 Resp 15 02/19/19 09:15 BP 136/88 02/19/19 09:15 Pulse Ox 96 02/19/19 09:15 Height: 1.63 m Weight: 84.2 kg ASA Class: 2 Mental Status: Alert & Oriented x3 Dentition: Reports: Partial (Lower, permanent.), Deering(s) (Lots of capped teeth. ) Thyro-Mental Finger Breadths: 3 Mouth Opening Finger Breadths: 3 ROM/Head Extension: Full Lungs: Clear to Auscultation, Normal Respiratory Effort Cardiovascular: Regular Rate, Regular Rhythm - Allergies Allergies/Adverse Reactions: Allergies Allergy/AdvReac Type Severity Reaction Status Date / Time erythromycin base AdvReac Drowsiness Verified 02/19/19 10:04 Sulfa (Sulfonamide AdvReac urinary Verified 02/19/19 10:04 Antibiotics) urgency - Anesthesia Plan Pre-Op Medication Ordered: Other (Scopalamine Patch) Beta Lizett: Metoprolol Med Last Dose Date: 02/19/19 Med Last Dose Time: 08:00 - Acknowledgements Anesthesia Type Planned: MAC Pt an Appropriate Candidate for the Planned Anesthesia: Yes Alternatives and Risks of Anesthesia Discussed w Pt/Guardian: Yes Pt/Guardian Understands and Agrees with Anesthesia Plan: Yes PreAnesthesia Questionnaire HEENT History: Reports: Impaired Vision Other HEENT History: wears glasses Cardiovascular History: Reports: High Cholesterol, Hypertension Respiratory History: Reports: None Gastrointestinal History: Reports: GERD, Other (See Below) Other Gastrointestinal History: fatty liver Genitourinary History: Reports: None GAUGE CHECKER History: Reports: Other (See Below) Other OB/BYN History: breast cyst, fibroid tumor Musculoskeletal History: Reports: RA Neurological History: Reports: None Psychiatric History: Reports: None Endocrine/Metabolic History: Reports: Hypothyroidism, Obesity/BMI 30+ Hematologic History: Reports: Hemochromatosis Immunologic History: Reports: None Oncologic (Cancer) History: Reports: None Dermatologic History: Reports: None - Infectious Disease History Infectious Disease History: Reports: None - Past Surgical History Head Surgeries/Procedures: Reports: None HEENT Surgical History: Reports: Adenoidectomy, Tonsillectomy Cardiovascular Surgical History: Reports: None Respiratory Surgical History: Reports: None GI Surgical History: Reports: Colonoscopy, EGD Female Surgical History: Reports: Breast Biopsy, D&C, Hysterectomy Endocrine Surgical History: Reports: None Neurological Surgical History: Reports: None Musculoskeletal Surgical History: Reports: None, Knee Replacement Other Musculoskeletal Surgeries/Procedures:: Right total knee replacement Oncologic Surgical History: Reports: None Dermatological Surgical History: Reports: None - SUBSTANCE USE Smoking Status *Q: Never Smoker Recreational Drug Use History: No - HOME MEDS Home Medications: Home Meds RX: Levothyroxine Sodium 75 mcg PO DAILY 12/19/16 [History] RX: Metoprolol Succinate 25 mg PO DAILY 12/19/16 [History] RX: Rosuvastatin [Crestor] 5 mg PO DAILY 12/19/16 [History] RX: Cranberry Conc/C/Bacill Coag [Cranberry Tablet] 1 tab PO DAILY 06/27/17 [ History] RX: Ubidecarenone [Coq-10] 200 mg PO DAILY 06/27/17 [History] RX: MV,Ca,Min/FA/Herbal No.157 [Estroven Max Strength Caplet] 1 tab PO DAILY [History] RX: Losartan/Hydrochlorothiazide [Hyzaar 100-25 Tablet] 1 tab PO DAILY 11/27/18 [History] Ca Carbonate/Vitamin D3/Vit K [Calcium + D Soft Chewable Tab] 1 tab PO DAILY [History] Celecoxib 400 mg PO DAILY 02/18/19 [History] Pantoprazole Sodium 40 mg PO DAILY 02/18/19 [History] Potassium Chloride 10 meq PO TID 02/18/19 [History] RX: Aspirin [Halfprin] 81 mg PO DAILY 02/18/19 [History] - CURRENT (IN HOUSE) MEDS Current Meds: Current Medications Lactated Ringer's (Ringers, Lactated) 1,000 mls @ 125 mls/hr IV ASDIRECTED CALOS Stop: 02/19/19 23:00 Last Admin: 02/19/19 09:35 Dose: 125 mls/hr Lidocaine/Sodium Bicarbonate (Buffered Lidocaine 1% In Ns 8.4%) 0.25 ml IDERM ONETIME PRN PRN Reason: Prior to IV Start Stop: 02/19/19 18:00 Last Admin: 02/19/19 09:35 Dose: 0.25 ml Scopolamine (Transderm-Scop) 1.5 mg TRDERM Q72H PRN PRN Reason: prevent post-op nausea Sodium Chloride (Saline Flush) 10 ml FLUSH ASDIRECTED PRN PRN Reason: Keep Vein Open Stop: 02/19/19 18:00 Discontinued Medications Fentanyl (Sublimaze) Confirm Administered Dose 100 mcg .ROUTE .STK-MED ONE Stop: 02/19/19 11:40 Lidocaine HCl (Xylocaine-Mpf 1%) 10 ml INJECT ONETIME ONE Stop: 02/19/19 08:45 Lidocaine HCl (Xylocaine 1%) 10 ml INJECT ONETIME ONE Stop: 02/19/19 10:27 Last Admin: 02/19/19 10:42 Dose: 5 ml Midazolam HCl (Versed 1 Mg/Ml) Confirm Administered Dose 2 mg .ROUTE .STK-MED ONE Stop: 02/19/19 11:41 Propofol (Diprivan 20 Ml) Confirm Administered Dose 200 mg .ROUTE .STK-MED ONE Stop: 02/19/19 11:40
[2019-02-19] MEDS ORDERED: Ondansetron 4 MG/2 ML SDV ONE (11:56)
[2019-02-19] MEDS ORDERED: Lidocaine 1% with EPINEPHrine 1:100,000 20 ML MDV ONE (12:49)
[2019-02-19] MEDS ORDERED: Bupivacaine 0.5%/EPINEPHrine 1:200,000 50 ML MDV ONE (12:49)
[2019-02-19] MEDS ORDERED: Ketorolac 30 MG/ML SDV ONE (13:35)
[2019-02-19] MEDS ORDERED: ePHEDrine/Normal Saline 25 MG/5 ML Syringe ONE (13:54)
[2019-02-19] MEDS ORDERED: ceFAZolin 1 GM Vial ONE ×2 (14:00→14:01)
[2019-02-19] MEDS ORDERED: Lactated Ringers 1,000 ML ONE (14:04)
[2019-02-19] MEDS ORDERED: Phenylephrine/Normal Saline 100 MCG/ML 10 ML Syringe ONE (14:31)
--- NOTE | 2019-02-19 15:30 | PCM.POSTAN ---
POST ANESTHESIA ASSESSMENT - MENTAL STATUS Mental Status: Alert, Oriented - VITAL SIGNS Pulse Rate: 91 SaO2: 100 Resp Rate: 13 Blood Pressure: 133/88 Temperature: 36.4 C - RESPIRATORY Respiratory Status: Respiratory Rate WNL, Airway Patent, O2 Saturation Stable, Supplemental Oxygen - CARDIOVASCULAR CV Status: Pulse Rate WNL, Blood Pressure Stable - GASTROINTESTINAL GI Status: No Symptoms - PAIN Pain Score: 0 - POST OP HYDRATION Hydration Status: Adequate & Stable
--- NOTE | 2019-02-19 15:38 | PCM.OPNOTE ---
- General Post-Op/Procedure Note Date of Surgery/Procedure: 02/19/19 Operative Procedure(s): wire localized right breast lumpectomy Findings: Lumpectomy specimen with wire in place. Clip not found in the specimen Pre Op Diagnosis: right breast intraductal papilloma Post-Op Diagnosis: same Anesthesia Technique: General ET Tube Primary Surgeon: Meka Silva Anesthesia Provider: Carlitos Adames Pathology: 1. Right breast lumpectomy 2. Anterior margin Fluid Replacement, Intraop: 1,500 Output, Urine Amount: 0 EBL in mLs: 50 Complications: none apparent Condition: Good
--- NOTE | 2019-02-19 15:41 | PCM.PRNOTE ---
- Free Text/Narrative Note: DATE OF PROCEDURE: PROCEDURE: Right breast lumpectomy PREOP DX: Right breast intraductal papilloma POSTOP DX: same SURGEON: Meka Silva MD SUPERVISOR KEYMODULE ASSEMBLY: Carlitos Adames CRNA ANESTHETIC: General anesthetic EBL: 50 mL IVF: 1500 mL UOP: 0 mL FINDINGS: Lumpectomy specimen with wire in place. Clip not found in the specimen PATHOLOGY: 1. Right breast lumpectomy 2. Anterior margin INDICATION: The patient is a 63-year old lady who initially presented with nipple discharge from in the right breast. Subsequent workup included a core needle biopsy, which demonstrated findings suspicious of intraductal papilloma. Surgical intervention was recommended. The risks, benefits, alternative and rationale of surgery explained including the risk of not operating, bleeding, infection, seroma or hematoma. Informed consent was obtained for a wire localized right breast lumpectomy. DESCRIPTION OF THE PROCEDURE: The patient was brought to the operating room and placed in supine position on the operating table. General anesthesia was induced without difficulty. Preoperative antibiotics were administered according to SCIP guidelines. The right chest and axilla were prepped and draped in a sterile fashion. A surgical timeout was performed. The incision was marked along the superior areolar margin. In conjunction with placement of the needle localization wire. We began by injecting local anesthetic into the area of the incision. An incision was made and flaps were raised orienting the incision to the area of the localization wire. Once the wire was located, it was brought into the surgical field in through the incision. The specimen was dissected from the surrounding tissues using the Bovie device. The specimen was oriented and sent to mammography for analysis of clip and wire placement in the specimen. Additional anterior margin was taken from the skin just below the nipple due to was the placement of the wire and suspicion that there might be residual abnormal tissue. The remaining cavity was inspected to ensure hemostasis and no additional abnormalities. Hemostasis was achieved using the Bovie device. Cavity was irrigated using sterile water. Mammography confirmed placement of the wire in the specimen, however, the clip was not found. Additional view of the specimen was taken and again the clip was not noted. A clip was also not found in the additional anterior margin tissue nor in the suction canister. The subcutaneous tissue was re- approximated with interrupted 3-0 vicryl sutures in the cavity and in the dermal tissue. The skin was closed with 4-0 Monocryl sub-cuticular running suture. Dermabond surgical glue was used to cover the skin. A dry dressing and surgical bra was placed. All instrument and sponge counts were correct. The patient was extubated and transferred to the PACU in stable condition. She was sent to mammography for additional views of the breast tissue to evaluate if the clip was left in place. Meka Silva MD General Surgery
[2019-02-19] MEDS ORDERED: Acetaminophen 325 MG Tab PO ONE (16:00)
[2019-02-19] MEDS ORDERED: Acetaminophen 325 MG Tab ONE (16:14)
--- NOTE | 2019-02-19 16:23 | PCM48HPAN ---
Post Anesthesia Note - EVALUATION WITHIN 48HRS OF ANESTHETIC Vital Signs in Normal Range: Yes Patient Participated in Evaluation: Yes Respiratory Function Stable: Yes Airway Patent: Yes Cardiovascular Function Stable: Yes Hydration Status Stable: Yes Pain Control Satisfactory: Yes Nausea and Vomiting Control Satisfactory: Yes Mental Status Recovered: Yes
[2019-02-19 16:31] VITALS: BP 122/74
--- NOTE | 2019-02-22 06:55 | MY ---
Specimen radiograph: Two radiographs of specimen obtained during operative biopsy were obtained. Localization wire has been removed. Microcalcifications are seen within the specimen. Stereotactic marking clip is not included in the specimen. Impression: 1. Stereotactic marking clip not in place within specimen radiograph, localization wire is in specimen and has been removed in its entirety. Diagnostic code #3
--- NOTE | 2019-02-23 07:58 | MY ---
Mammogram: Two-view mammogram study obtained following surgical biopsy. Study shows residual stereotactic marking clip in place which is superficial in location. Air cavity noted from the surgical procedure. Parenchymal pattern is otherwise stable. Impression: 1. Stereotactic marking clip remains superficially placed within the right breast. 2. Air from previous biopsy. BI-RADS 2 - benign findings
== END 2019-02-19 16:44 | disposition home or self-care (01) ==
LOC: JD.SDS 09:06
PROVIDERS: ATTEND Surgery
DX: D24.1 Benign neoplasm of right breast (principal); N60.82 Other benign mammary dysplasias of left breast
CPT/HCPCS: 19281; 19283; 76098; 77065; 88305; 93005; A9270; J0690; J1885; J2001; J2250; J2370; J2405; J2704; J3010; J3490; J7050; J7120; 00400; 86803; G0433

== ENCOUNTER 2020-02-28 08:59 | Inpatient (IN) | payer MEDICARE, BC ==
[~2020-02-28 08:59] MED LIST changes: +Acetaminophen 325 MG Tab PO SCH; +Bisacodyl 5 MG Tab PO PRN; +Cyclobenzaprine 10 MG Tab PO PRN; +Magnesium Hydroxide 400 MG/5 ML Susp 30 ML Cup PO PRN; +Morphine 2 MG/ML Syringe IVPUSH PRN; +Naloxone 0.4 MG/ML SDV IVPUSH PRN; +Ondansetron 4 MG/2 ML SDV IVPUSH PRN; +Pregabalin 25 MG Cap PO SCH; +Scopolamine 1.5 MG Transdermal Patch TRDERM PRN; +Sennosides 8.6 MG Tab PO PRN; +oxyCODONE ER 10 MG TAB.ER PO SCH
--- NOTE | 2020-02-28 09:04 | PCM.CONS ---
H&P History of Present Illness - General Date of Service: 02/28/20 Admit Problem/Dx: Admission Diagnosis/Problem Admission Diagnosis/Problem Osteoarthritis of hip Source of Information: Patient, Old Records, Provider, RN, RN Notes Reviewed History Limitations: Reports: No Limitations - History of Present Illness Initial Comments - Free Text/Narative: Jeana Roberts is a 64 yo female patient of Dr. Gomez who is post-operative day 0 of left JANELL. Hospital medicine was consulted for post-operative medical care of the following listed medical conditions. At this time she is resting comfortably in bed. Pain is controlled. She denies any chest pain, shortness of breath, palpitations, nausea, or vomiting. She carries a history of: HTN, OA, Osteoporosis, Hypothyroidism, Fatty liver, Positive MRSA screen, Palpitations, Chronic back pain, Left leg sciatica, HLD, GERD, Obesity, Hemochromatosis. She was never a smoker. She is a full code. Her primary care provider is Roger Longoria NP. - Related Data Allergies/Adverse Reactions: Allergies Allergy/AdvReac Type Severity Reaction Status Date / Time erythromycin base AdvReac Drowsiness Verified 02/28/20 14:24 Sulfa (Sulfonamide AdvReac urinary Verified 02/28/20 14:24 Antibiotics) urgency Home Medications: Home Meds Levothyroxine Sodium 75 mcg PO DAILY 12/19/16 [History] Metoprolol Succinate 25 mg PO DAILY 12/19/16 [History] Cranberry Conc/C/Bacill Coag [Cranberry Tablet] 1 tab PO DAILY 06/27/17 [History] Ubidecarenone [Coq-10] 200 mg PO DAILY 06/27/17 [History] Losartan/Hydrochlorothiazide [Hyzaar 100-25 Tablet] 1 tab PO DAILY 11/27/18 [History] Aspirin [Halfprin] 81 mg PO DAILY 02/18/19 [History] Celecoxib 400 mg PO DAILY 02/18/19 [History] Potassium Chloride 40 meq PO TID 02/18/19 [History] Acetaminophen 500 mg PO Q6HR PRN #100 tablet 02/19/19 [Rx] Cholecalciferol (Vitamin D3) [Vitamin D3] 1 cap PO DAILY 02/25/20 [History] Echinacea 380 mg PO DAILY 02/25/20 [History] Pantoprazole Sodium [Protonix] 40 mg PO DAILY 02/25/20 [History] atorvaSTATin [Lipitor] 10 mg PO DAILY 02/25/20 [History] Amberen 1 tab PO DAILY 02/28/20 [History] Past Medical History HEENT History: Reports: Impaired Vision Other HEENT History: wears glasses Cardiovascular History: Reports: High Cholesterol, Hypertension Respiratory History: Reports: None Gastrointestinal History: Reports: GERD, Other (See Below) Other Gastrointestinal History: fatty liver Genitourinary History: Reports: None LEAD ANDROID DEVELOPER History: Reports: Other (See Below) Other OB/BYN History: breast cyst, fibroid tumor Musculoskeletal History: Reports: RA Neurological History: Reports: None Psychiatric History: Reports: None Endocrine/Metabolic History: Reports: Hypothyroidism, Obesity/BMI 30+ Hematologic History: Reports: Hemochromatosis Immunologic History: Reports: None Oncologic (Cancer) History: Reports: None Dermatologic History: Reports: None - Infectious Disease History Infectious Disease History: Reports: None - Past Surgical History Head Surgeries/Procedures: Reports: None HEENT Surgical History: Reports: Adenoidectomy, Tonsillectomy Cardiovascular Surgical History: Reports: None Respiratory Surgical History: Reports: None GI Surgical History: Reports: Colonoscopy, EGD Female Surgical History: Reports: Breast Biopsy, D&C, Hysterectomy Endocrine Surgical History: Reports: None Neurological Surgical History: Reports: None Musculoskeletal Surgical History: Reports: None, Knee Replacement Other Musculoskeletal Surgeries/Procedures:: Right total knee replacement Oncologic Surgical History: Reports: None Dermatological Surgical History: Reports: None Social & Family History - Family History Family Medical History: Noncontributory - Tobacco Use Smoking Status *Q: Never Smoker - Caffeine Use Caffeine Use: Reports: None Caffeine Use Comment: "soda once in awhile" - Recreational Drug Use Recreational Drug Use: No Drug Use in Last 12 Months: No H&P Review of Systems - Review of Systems: Review Of Systems: See Below General: Reports: No Symptoms. Denies: Fever, Chills HEENT: Reports: No Symptoms. Denies: Headaches, Sore Throat Pulmonary: Reports: No Symptoms. Denies: Shortness of Breath, Wheezing, Pleuritic Chest Pain, Cough, Sputum Cardiovascular: Reports: No Symptoms. Denies: Chest Pain, Palpitations, Dyspnea on Exertion Gastrointestinal: Reports: No Symptoms. Denies: Abdominal Pain, Constipation, Diarrhea, Nausea, Vomiting Genitourinary: Reports: No Symptoms. Denies: Pain Musculoskeletal: Reports: Leg Pain Skin: Reports: No Symptoms. Denies: Cyanosis Psychiatric: Reports: No Symptoms. Denies: Confusion Neurological: Reports: Numbness, Tingling, Difficulty Walking, Gait Disturbance Hematologic/Lymphatic: Reports: No Symptoms Immunologic: Reports: No Symptoms Exam - Exam Exam: See Below - Exam Quality Assessment: Supplemental Oxygen (1L), DVT Prophylaxis General: Alert, Oriented, Cooperative. No: Mild Distress HEENT: Conjunctiva Clear, EACs Clear, Mucosa Moist & [place], Posterior Pharynx Clear, PERRLA Neck: Supple, Trachea Midline Lungs: Clear to Auscultation, Normal Respiratory Effort Cardiovascular: Regular Rate, Regular Rhythm GI/Abdominal Exam: Normal Bowel Sounds, Soft, Non-Tender, No Distention (Female) Exam: Deferred Rectal (Female) Exam: Deferred Extremities: Normal Capillary Refill, Leg Pain, Limited Range of Motion, Other (Bandage in place on left leg. Bandage is dry and intact. Cooling pack in place. ) Peripheral Pulses: 3+: Radial (L), Radial (R), Dorsalis Pedis (L), Dorsalis Pedis (R) Skin: Warm, Dry, Intact Neurological: Cranial Nerves Intact (Grossly ) Neuro Extensive - Mental Status: Alert, Oriented x3, Normal Mood/Affect Sepsis Event Note - Focused Exam Date Exam was Performed: 02/28/20 Time Exam was Performed: 14:40 Consult PN Assessment/Plan POD#: 0 Procedures: Procedures CULTURE AEROBIC IDENTIFY (08/19/14) DRAIN/INJ JOINT/BURSA W/O US (12/14/19) DX MAMMO INCL CAD UNI (02/19/19) EGD DIAGNOSTIC BRUSH WASH (11/27/18) ELECTROCARDIOGRAM TRACING (02/19/19) GAIT TRAINING THERAPY (01/28/17) HEPATOBIL SYST IMAGE W/DRUG (02/01/15) MANUAL THERAPY 1/> REGIONS (04/06/19) MASSAGE THERAPY (08/06/17) MICROBE SUSCEPTIBLE LACI (08/19/14) NEUROMUSCULAR REEDUCATION (08/06/17) PERQ DEV BREAST 1ST STRTCTC (02/19/19) PERQ DEVICE BREAST 1ST IMAG (02/19/19) PT EVAL LOW COMPLEX 20 MIN (04/06/19) THERAPEUTIC ACTIVITIES (08/06/17) THERAPEUTIC EXERCISES (04/26/19) TISSUE EXAM BY PATHOLOGIST (02/19/19) URINALYSIS AUTO W/O SCOPE (02/15/15) URINE BACTERIA CULTURE (08/19/14) X-RAY EXAM NECK SPINE 2-3 VW (04/01/17) X-RAY EXAM SURGICAL SPECIMEN (02/19/19) X-RAY EXAM THORAC SPINE 2VWS (04/01/17) (1) Osteoporosis SNOMED Code(s): 98829723 Code(s): M81.0 - AGE-RELATED OSTEOPOROSIS W/O CURRENT PATHOLOGICAL FRACTURE Priority: Low Current Visit: No Qualifiers: Osteoporosis type: unspecified Presence of current pathological fracture: unspecified Qualified Code(s): M81.0 - Age-related osteoporosis without current pathological fracture (2) Fatty liver SNOMED Code(s): 709214488 Code(s): K76.0 - FATTY (CHANGE OF) LIVER, NOT ELSEWHERE CLASSIFIED Priority: Medium Current Visit: No (3) Positive result for methicillin resistant Staphylococcus aureus (MRSA) screening SNOMED Code(s): 429129554 Code(s): Z22.322 - CARRIER OR SUSPECTED CARRIER OF METHICILLIN RESIS STAPH Priority: Medium Current Visit: Yes (4) HLD (hyperlipidemia) SNOMED Code(s): 54746599 Code(s): E78.5 - HYPERLIPIDEMIA, UNSPECIFIED Priority: Low Current Visit: No Qualifiers: Hyperlipidemia type: unspecified Qualified Code(s): E78.5 - Hyperlipidemia, unspecified (5) GERD (gastroesophageal reflux disease) SNOMED Code(s): 563890502 Code(s): K21.9 - GASTRO-ESOPHAGEAL REFLUX DISEASE WITHOUT ESOPHAGITIS Priority: Low Current Visit: No Qualifiers: Esophagitis presence: esophagitis presence not specified Qualified Code(s): K21.9 - Gastro-esophageal reflux disease without esophagitis (6) Obesity SNOMED Code(s): 253857009, 756907410 Code(s): E66.9 - OBESITY, UNSPECIFIED Current Visit: Yes Qualifiers: Obesity type: unspecified obesity type Obesity classification: adult class 1 (BMI 30 - 34.9) Serious obesity comorbidity presence: unspecified whether serious comorbidity present Body mass index: BMI 31.0-31.9 Qualified Code(s): E66.9 - Obesity, unspecified; Z68.31 - Body mass index (BMI) 31.0-31.9, adult (7) Hemochromatosis SNOMED Code(s): 761079384 Code(s): E83.119 - HEMOCHROMATOSIS, UNSPECIFIED Priority: Medium Current Visit: No Qualifiers: Hemochromatosis type: unspecified Qualified Code(s): E83.119 - Hemochromato sis, unspecified (8) Palpitations SNOMED Code(s): 44380947 Code(s): R00.2 - PALPITATIONS Priority: Low Current Visit: No (9) Chronic back pain SNOMED Code(s): 094403104 Code(s): M54.9 - DORSALGIA, UNSPECIFIED; G89.29 - OTHER CHRONIC PAIN Priority: Low Current Visit: No Qualifiers: Back pain location: back pain in unspecified location Back pain laterality: left Qualified Code(s): M54.9 - Dorsalgia, unspecified; G89.29 - Other chronic pain (10) Sciatica SNOMED Code(s): 61667462 Code(s): M54.30 - SCIATICA, UNSPECIFIED SIDE Priority: Medium Current Vis it: No Qualifiers: Laterality: left Qualified Code(s): M54.32 - Sciatica, left side (11) HTN (hypertension) SNOMED Code(s): 71829358 Code(s): I10 - ESSENTIAL (PRIMARY) HYPERTENSION Priority: Medium Current Visit: No Qualifiers: Hypertension type: essential hypertension Qualified Code(s): I10 - Essential (primary) hypertension (12) Hypothyroid SNOMED Code(s): 91891077 Code(s): E03.9 - HYPOTHYROIDISM, UNSPECIFIED Priority: Medium Current Visit: No Qualifiers: Hypothyroidism type: unspecified Qualified Code(s): E03.9 - Hypothyroidism, unspecified (13) Osteoarthritis SNOMED Code(s): 624488452 Code(s): M19.90 - UNSPECIFIED OSTEOARTHRITIS, UNSPECIFIED SITE Priority: High Current Visit: Yes Qualifiers: Osteoarthritis location: hip Osteoarthritis type: primary Laterality: left Qualified Code(s): M16.12 - Unilateral primary osteoarthritis, left hip (14) S/P total hip arthroplasty SNOMED Code(s): 642951999959, 719547083253 Code(s): Z96.649 - PRESENCE OF UNSPECIFIED ARTIFICIAL HIP JOINT Priority: High Current Visit: Yes Qualifiers: Laterality: left Qualified Code(s): Z96.642 - Presence of left artificial hip joint Problem List Initiated/Reviewed/Updated: Yes Plan: I/P: Acute: S/P left total hip arthroplasty - post-operative day 0 -DVT prophylaxis and pain management per primary care team -PT/OT -IS/RT -Monitor oxygen saturation -Titrate oxygen as needed -Home medications reviewed -Vital signs stable -Monitor labs -Pre-operative Hgb was 14.4 -Pre-operative GFR was 56 Osteoarthritis of left hip -Pain management per primary care team Chronic: HTN OA Osteoporosis Hypothyroidism Fatty liver Positive MRSA screen Palpitations Chronic back pain Left leg sciatica HLD GERD Obesity Hemochromatosis Plan: Home CPAP CM for discharge planning GI prophylaxis Home medications as indicated Other orders as listed above Routine AM labs She is a full code. Her PCP is Roger Longoria NP Thank you for allowing us to participate in the care of this patient!! Requesting Provider: Dr. Gomez Date Consult Requested: 02/28/20 Patient History Reviewed: Yes Admission H&P Reviewed: Yes
[2020-02-28] MEDS ORDERED: fentaNYL 100 MCG/2 ML SDV ONE (09:17)
[2020-02-28] MEDS ORDERED: Propofol 200 MG/20 ML SDV ONE (09:17)
[2020-02-28] MEDS ORDERED: Midazolam 1 MG/ML 2 ML SDV ONE (09:18)
[2020-02-28] MEDS ORDERED: Lactated Ringers 1,000 ML ONE (09:20)
[2020-02-28] MEDS ORDERED: ceFAZolin 1 GM Vial ONE (09:45)
--- NOTE | 2020-02-28 09:59 | PCM.PREANE ---
Preanesthetic Assessment - Procedure Proposed Procedure: Left Hip Arthroplasty - Anesthesia/Transfusion/Family Hx Anesthesia History: Prior Anesthesia Reaction Type of Anesthesia Reaction: Excessive Nausea/Vomiting (With previous total knee surgery) Family History of Anesthesia Reaction: No Transfusion History: No Prior Transfusion(s) Type of Transfusion Reactions: Reports: Unknown Intubation History: Unknown - Review of Systems General: No Symptoms Pulmonary: No Symptoms Cardiovascular: No Symptoms, Other (Occasional skipping beat/racing feeling. Stress Test many years ago negative. EKG is SB at 53 beats per minute. ) Gastrointestinal: No Symptoms Neurological: Pre-Existing Deficit (Back pain with left sciatica pain at times. ) Other: Reports: None, Liver Problems (Fatty Liver), Thyroid Problems (Hypothryoidism) - Physical Assessment NPO Status Date: 02/27/20 NPO Status Time: 23:30 Vital Signs: Last Vital Signs Temp 36.4 C 02/28/20 08:55 Pulse 74 02/28/20 08:55 Resp 16 02/28/20 08:55 BP 155/86 H 02/28/20 08:55 Pulse Ox 99 02/28/20 08:55 Height: 1.63 m Weight: 83.4 kg ASA Class: 2 Mental Status: Alert & Oriented x3 Airway Class: Mallampati = 3 Dentition: Reports: Partial (lower permanent), [place](s) (Lots of capped teeth), Caries Thyro-Mental Finger Breadths: 3 Mouth Opening Finger Breadths: 3 ROM/Head Extension: Full Lungs: Clear to Auscultation, Normal Respiratory Effort Cardiovascular: Regular Rate, Regular Rhythm - Lab Values: Laboratory Last Values COVID-19 PCR Not detected (NOT DETECT) 02/24/20 14:05 MRSA (PCR) Positive H 02/11/20 11:22 - Allergies Allergies/Adverse Reactions: Allergies Allergy/AdvReac Type Severity Reaction Status Date / Time erythromycin base AdvReac Drowsiness Verified 02/25/20 10:29 Sulfa (Sulfonamide AdvReac urinary Verified 02/25/20 10:29 Antibiotics) urgency - Anesthesia Plan Beta Lizett: Metoprolol Med Last Dose Date: 02/28/20 Med Last Dose Time: 08:30 - Acknowledgements Anesthesia Type Planned: Spinal Pt an Appropriate Candidate for the Planned Anesthesia: Yes Alternatives and Risks of Anesthesia Discussed w Pt/Guardian: Yes Pt/Guardian Understands and Agrees with Anesthesia Plan: Yes PreAnesthesia Questionnaire HEENT History: Reports: Impaired Vision Other HEENT History: wears glasses Cardiovascular History: Reports: High Cholesterol, Hypertension Respiratory History: Reports: None Gastrointestinal History: Reports: GERD, Other (See Below) Other Gastrointestinal History: fatty liver Genitourinary History: Reports: None [employer] REPRESENTATIVE History: Reports: Other (See Below) Other OB/BYN History: breast cyst, fibroid tumor Musculoskeletal History: Reports: RA Neurological History: Reports: None Psychiatric History: Reports: None Endocrine/Metabolic History: Reports: Hypothyroidism, Obesity/BMI 30+ Hematologic History: Reports: Hemochromatosis Immunologic History: Reports: None Oncologic (Cancer) History: Reports: None Dermatologic History: Reports: None - Infectious Disease History Infectious Disease History: Reports: None - Past Surgical History Head Surgeries/Procedures: Reports: None HEENT Surgical History: Reports: Adenoidectomy, Tonsillectomy Cardiovascular Surgical History: Reports: None Respiratory Surgical History: Reports: None GI Surgical History: Reports: Colonoscopy, EGD Female Surgical History: Reports: Breast Biopsy, D&C, Hysterectomy Endocrine Surgical History: Reports: None Neurological Surgical History: Reports: None Musculoskeletal Surgical History: Reports: None, Knee Replacement Other Musculoskeletal Surgeries/Procedures:: Right total knee replacement Oncologic Surgical History: Reports: None Dermatological Surgical History: Reports: None - SUBSTANCE USE Smoking Status *Q: Never Smoker Recreational Drug Use History: No - HOME MEDS Home Medications: Home Meds Levothyroxine Sodium 75 mcg PO DAILY 12/19/16 [History] Metoprolol Succinate 25 mg PO DAILY 12/19/16 [History] Cranberry Conc/C/Bacill Coag [Cranberry Tablet] 1 tab PO DAILY 06/27/17 [History] Ubidecarenone [Coq-10] 200 mg PO DAILY 06/27/17 [History] Losartan/Hydrochlorothiazide [Hyzaar 100-25 Tablet] 1 tab PO DAILY 11/27/18 [History] Aspirin [Halfprin] 81 mg PO DAILY 02/18/19 [History] Celecoxib 400 mg PO DAILY 02/18/19 [History] Potassium Chloride 40 meq PO TID 02/18/19 [History] Acetaminophen 500 mg PO Q6HR PRN #100 tablet 02/19/19 [Rx] Soy Isofl/Blk Coh/Gr Tea/Yerba [[employer] Caplet] 1 each PO DAILY 12/14/19 [History] Cholecalciferol (Vitamin D3) [Vitamin D3] 1 cap PO DAILY 02/25/20 [History] Echinacea 760 mg PO DAILY 02/25/20 [History] Pantoprazole Sodium [Protonix] 40 mg PO DAILY 02/25/20 [History] atorvaSTATin [Lipitor] 10 mg PO DAILY 02/25/20 [History] - CURRENT (IN HOUSE) MEDS Current Meds: Current Medications Acetaminophen (Tylenol) 975 mg PO ONETIME [facility] Stop: 02/28/20 16:00 Last Admin: 02/28/20 09:09 Dose: 975 mg Documented by: Aspirin (Ecotrin) 325 mg PO BID [facility] Bisacodyl (Dulcolax) 5 mg PO DAILY PRN PRN Reason: Constipation Morphine Sulfate 8 mg/Epinephrine HCl 0.3 mg/Cefuroxime Sodium 750 mg/Ketorolac Tromethamine 30 mg/Sodium Chloride 7.9 ml 0 mg .XX ONETIME ONE Stop: 02/28/20 12:01 Cyclobenzaprine HCl (Flexeril) 10 mg PO TID PRN PRN Reason: Spasms Docusate Sodium (Colace) 100 mg PO BID [facility] Famotidine (Pepcid) 20 mg PO Q12H [facility] Lactated Ringer's (Ringers, Lactated) 1,000 mls @ 125 mls/hr IV ASDIRECTED [facility] Stop: 02/28/20 23:00 Last Admin: 02/28/20 09:31 Dose: 125 mls/hr Documented by: Cefazolin Sodium/Dextrose 2 gm (/ Premix) 50 mls @ 100 mls/hr IV Q8H [facility] Stop: 02/28/20 22:29 Vancomycin HCl 1 gm/Vancomycin HCl 500 mg/ Sodium Chloride 500 mls @ 250 mls/hr IV ONETIME ONE Stop: 02/28/20 11:59 Ketorolac Tromethamine (Toradol) 15 mg IVPUSH Q6H PRN PRN Reason: Pain Lidocaine/Sodium Bicarbonate (Buffered Lidocaine 1% In Ns 8.4%) 0.25 ml IDERM ONETIME PRN PRN Reason: Prior to IV Start Stop: 02/28/20 18:00 Last Admin: 02/28/20 09:31 Dose: 0.25 ml Documented by: Magnesium Hydroxide (Milk Of Magnesia) 30 ml PO BID PRN PRN Reason: Constipation Morphine Sulfate (Morphine) 2 mg IVPUSH Q2H PRN PRN Reason: Breakthrough Pain Naloxone HCl (Narcan) 0.1 mg IVPUSH Q5M PRN PRN Reason: Oversedation Ondansetron HCl (Zofran) 4 mg IVPUSH Q6H PRN PRN Reason: Nausea/Vomiting Oxycodone HCl (Oxycontin) 10 mg PO ONETIME [facility] Stop: 02/28/20 16:00 Last Admin: 02/28/20 09:10 Dose: 10 mg Documented by: Oxycodone/Acetaminophen (Percocet 325-5 Mg) 1 - 2 tab PO Q4H PRN PRN Reason: Pain Pregabalin (Lyrica) 50 mg PO ONETIME [facility] Stop: 02/28/20 16:00 Last Admin: 02/28/20 09:10 Dose: 50 mg Documented by: Scopolamine (Transderm-Scop) 1.5 mg TRDERM ONETIME PRN PRN Reason: PONV Last Admin: 02/28/20 09:10 Dose: 1.5 mg Documented by: Senna (Senna) 8.6 mg PO BID PRN PRN Reason: Constipation Sodium Chloride (Saline Flush) 10 ml FLUSH ASDIRECTED PRN PRN Reason: Keep Vein Open Stop: 02/28/20 18:00 Discontinued Medications Aspirin (Ecotrin) 325 mg PO BID [facility] Bupivacaine HCl (Sensorcaine-Mpf 0.25%) Confirm Administered Dose 30 ml .ROUTE .STK-MED ONE Stop: 02/28/20 09:46 Cefazolin Sodium (Ancef) Confirm Administered Dose 2 gm .ROUTE .STK-MED ONE Stop: 02/28/20 09:21 Cefazolin Sodium (Ancef) Confirm Administered Dose 2 gm .ROUTE .STK-MED ONE Stop: 02/28/20 09:46 Fentanyl (Sublimaze) Confirm Administered Dose 100 mcg .ROUTE .STK-MED ONE Stop: 02/28/20 09:18 Lactated Ringer's (Ringers, Lactated) Confirm Administered Dose 1,000 mls @ as directed .ROUTE .STK-MED ONE Stop: 02/28/20 09:21 Iodine (Iodine 2% Mild Tincture) Confirm Administered Dose 30 ml .ROUTE .STK-MED ONE Stop: 02/28/20 09:46 Midazolam HCl (Versed 1 Mg/Ml) Confirm Administered Dose 2 mg .ROUTE .STK-MED ONE Stop: 02/28/20 09:19 Propofol (Diprivan 20 Ml) Confirm Administered Dose 600 mg .ROUTE .STK-MED ONE Stop: 02/28/20 09:18 Tranexamic Acid (Cyklokapron) Confirm Administered Dose 1,000 mg .ROUTE .STK-MED ONE Stop: 02/28/20 09:46 Vancomycin HCl (Vancomycin) Confirm Administered Dose 1 gm .ROUTE .STK-MED ONE Stop: 02/28/20 09:46
[2020-02-28] MEDS ORDERED: Vancomycin 1 GM, Vancomycin 500 MG in Sodium Chloride 0.9% 500 ML IV ONE (10:00)
[2020-02-28] MEDS ORDERED: ePHEDrine Sulfate/0.9% NaCl/Pf 25 MG/5 ML SYRINGE IV ONE (11:01)
[2020-02-28] MEDS ORDERED: Lidocaine 1% 2 ML ONE (11:06)
[2020-02-28] MEDS ORDERED: Ondansetron 4 MG/2 ML SDV IVPUSH PRN (11:18)
[2020-02-28] MEDS ORDERED: HYDROmorphone 0.5 MG/0.5 ML Syringe IVPUSH PRN (11:18)
[2020-02-28] MEDS ORDERED: fentaNYL 100 MCG/2 ML SDV IVPUSH PRN (11:18)
[2020-02-28] MEDS: Bupivacaine 0.25% 10 ML SDV ONE ×2 (11:36→12:24)
[2020-02-28] MEDS: ceFAZolin 1 GM Vial ONE ×2 (11:36→12:14)
[2020-02-28] MEDS: Iodine/Sodium Iodide 2% Tincture 30 ML Bottle ONE ×2 (11:37→12:13)
[2020-02-28] MEDS: Vancomycin 1 GM SDV ONE ×2 (11:38→12:25)
[2020-02-28] MEDS ORDERED: Ketamine 500 mg/10 ML MDV ONE (11:40)
[2020-02-28] MEDS ORDERED: Ondansetron 4 MG/2 ML SDV ONE (11:51)
[2020-02-28] MEDS: Morphine Sulfate 8 MG, EPINEPHrine 0.3 MG, Cefuroxime 750 MG, Ketorolac 30 MG, Sodium C... ONE ×10 (12:13→12:26)
[2020-02-28] MEDS ORDERED: Ketorolac 15 MG/ML SDV ONE (12:42)
--- NOTE | 2020-02-28 12:57 | PCM.POSTAN ---
POST ANESTHESIA ASSESSMENT - MENTAL STATUS Mental Status: Alert, Oriented - VITAL SIGNS Vital Signs: Last Vital Signs Temp 97.6 F 02/28/20 08:55 Pulse 74 02/28/20 08:55 Resp 16 02/28/20 08:55 BP 155/86 H 02/28/20 08:55 Pulse Ox 99 02/28/20 08:55 1252 87 15 98.0 105/58 95% - RESPIRATORY Respiratory Status: Respiratory Rate WNL, Airway Patent, O2 Saturation Stable, Supplemental Oxygen - CARDIOVASCULAR CV Status: Pulse Rate WNL, Blood Pressure Stable - GASTROINTESTINAL GI Status: No Symptoms - PAIN Pain Score: 0 - POST OP HYDRATION Hydration Status: Adequate & Stable
--- NOTE | 2020-02-28 13:32 | CR ---
Pelvis and left hip: AP view of the pelvis was obtained as well as crosstable lateral views left hip. Mild joint space narrowing is seen superiorly within the right hip. Left hip prosthesis is seen. Components are aligned. Multiple calcifications of the pelvis are seen compatible with phleboliths. Mild arterial calcification is noted within the iliac vessels. No acute bony abnormality is appreciated. Impression: 1. Recently placed left hip prosthesis. 2. Other findings as noted above. No acute bony abnormality is seen. Diagnostic code #2 This report was dictated in MDT
[2020-02-28] MEDS: Potassium Chloride 20 MEQ Tab.ER PO SCH ×2 (16:41→20:57)
[2020-02-28] MEDS: Ketorolac 15 MG/ML SDV IVPUSH PRN (18:34)
[2020-02-28] MEDS: ceFAZolin 2 GM in Premix Bag 1 BAG IV SCH (18:35)
[2020-02-28] MEDS: Docusate Sodium 100 MG Cap PO SCH (20:57)
[2020-02-28] MEDS ORDERED: Famotidine 20 MG Tab PO SCH (21:00)
[2020-02-28] MEDS ORDERED: Simvastatin 10 MG Tab PO SCH (21:00)
[2020-02-28] MEDS: Acetaminophen/oxyCODONE 325-5 MG Tab PO PRN (22:07)
[2020-02-29] MEDS: Ketorolac 15 MG/ML SDV IVPUSH PRN (01:35)
[2020-02-29] MEDS: ceFAZolin 2 GM in Premix Bag 1 BAG IV SCH ×2 (01:37→09:05)
[2020-02-29] MEDS ORDERED: Levothyroxine 75 MCG Tab PO SCH (06:00)
[2020-02-29] MEDS ORDERED: Aspirin 325 MG Tab.EC PO SCH ×2 (06:00→09:00)
[2020-02-29] MEDS: Acetaminophen/oxyCODONE 325-5 MG Tab PO PRN ×2 (06:53→11:30)
--- NOTE | 2020-02-29 07:07 | PCM.CONSN ---
- General Info Date of Service: 02/29/20 Admission Dx/Problem (Free Text): Admission Diagnosis/Problem Admission Diagnosis/Problem Osteoarthritis of hip Functional Status: Reports: Pain Controlled, Tolerating Diet, Ambulating, Urinating, Incentive Spirometry. Denies: New Symptoms - Review of Systems General: Reports: No Symptoms. Denies: Fever, Chills HEENT: Reports: No Symptoms. Denies: Headaches, Sore Throat Pulmonary: Reports: No Symptoms. Denies: Shortness of Breath, Pleuritic Chest Pain, Cough, Sputum, Wheezing Cardiovascular: Reports: No Symptoms. Denies: Chest Pain, Palpitations, Dyspnea on Exertion Gastrointestinal: Reports: No Symptoms. Denies: Abdominal Pain, Constipation, Diarrhea, Nausea, Vomiting Genitourinary: Reports: No Symptoms. Denies: Pain Musculoskeletal: Reports: Leg Pain Skin: Reports: No Symptoms. Denies: Cyanosis Neurological: Reports: Difficulty Walking, Gait Disturbance. Denies: Confusion Psychiatric: Reports: No Symptoms - Patient Data Vitals - Most Recent: Last Vital Signs Temp 98.4 F 02/29/20 01:57 Pulse 83 02/29/20 01:57 Resp 16 02/29/20 01:34 BP 131/69 02/29/20 01:34 Pulse Ox 94 L 02/29/20 06:02 Weight - Most Recent: 183 lb I&O - Last 24 Hours: Intake & Output 02/28/20 02/29/20 02/29/20 22:59 06:59 14:59 Intake Total 50 Output Total 0 Balance 50 Lab Results Last 24 Hours: Laboratory Results - last 24 hr 02/28/20 02/29/20 02/29/20 Range/Units 09:35 04:44 04:44 WBC 8.83 (3.98-10.04) K/mm3 RBC 3.66 L (3.98-5.22) M/mm3 Hgb 11.6 (11.2-15.7) gm/dl Hct 37.2 (34.1-44.9) % MCV 101.6 H D (79.4-94.8) fl MCH 31.7 (25.6-32.2) pg MCHC 31.2 L (32.2-35.5) g/dl RDW Std Deviation 45.6 (36.4-46.3) fL Plt Count 252 (182-369) K/mm3 MPV 9.9 (9.4-12.3) fl Sodium 140 (136-145) mEq/L Potassium 4.0 (3.5-5.1) mEq/L Chloride 105 (98-107) mEq/L Carbon Dioxide 29 (21-32) mEq/L Anion Gap 10.0 (5-15) BUN 19 H (7-18) mg/dL Creatinine 1.1 H (0.55-1.02) mg/dL Est Cr Clr Drug Dosing 44.03 mL/min Estimated GFR (MDRD) 50 (>60) mL/min BUN/Creatinine Ratio 17.3 (14-18) Glucose 120 H (80-115) mg/dL Calcium 9.0 (8.5-10.1) mg/dL Total Bilirubin 0.6 (0.2-1.0) mg/dL AST 36 (15-37) U/L ALT 30 (14-59) U/L Alkaline Phosphatase 83 (46-116) U/L Total Protein 5.8 L (6.4-8.2) g/dl Albumin 2.8 L (3.4-5.0) g/dl Globulin 3.0 gm/dL Albumin/Globulin Ratio 0.9 L (1-2) Blood Type O POSITIVE Gel Antibody Screen Negative Med Orders - Current: Current Medications Aspirin (Ecotrin) 325 mg PO BID [facility] Bisacodyl (Dulcolax) 5 mg PO DAILY PRN PRN Reason: Constipation Cholecalciferol (Vitamin D3) 5,000 unit PO DAILY [facility] Cyclobenzaprine HCl (Flexeril) 10 mg PO TID PRN PRN Reason: Spasms Docusate Sodium (Colace) 100 mg PO BID [facility] Last Admin: 02/28/20 20:57 Dose: 100 mg Documented by: Hydrochlorothiazide (Hydrochlorothiazide) 25 mg PO DAILY [facility] Cefazolin Sodium/Dextrose 2 gm (/ Premix) 50 mls @ 100 mls/hr IV Q8H [facility] Stop: 02/29/20 10:14 Last Admin: 02/29/20 01:37 Dose: 100 mls/hr Documented by: Levothyroxine Sodium (Levothyroxine) 75 mcg PO ACBREAKFAST [facility] Last Admin: 02/29/20 06:53 Dose: 75 mcg Documented by: Losartan Potassium (Cozaar) 100 mg PO DAILY [facility] Magnesium Hydroxide (Milk Of Magnesia) 30 ml PO BID PRN PRN Reason: Constipation Metoprolol Succinate (Toprol Xl) 25 mg PO DAILY [facility] Morphine Sulfate (Morphine) 2 mg IVPUSH Q2H PRN PRN Reason: Breakthrough Pain Naloxone HCl (Narcan) 0.1 mg IVPUSH Q5M PRN PRN Reason: Oversedation Ondansetron HCl (Zofran) 4 mg IVPUSH Q6H PRN PRN Reason: Nausea/Vomiting Last Admin: 02/28/20 16:35 Dose: 4 mg Documented by: Oxycodone/Acetaminophen (Percocet 325-5 Mg) 1 - 2 tab PO Q4H PRN PRN Reason: Pain Last Admin: 02/29/20 06:53 Dose: 2 tab Documented by: Pantoprazole Sodium (Protonix) 40 mg PO DAILY [facility] Potassium Chloride (Klor-Con M20) 40 meq PO TID [facility] Last Admin: 02/28/20 20:57 Dose: 40 meq Documented by: Scopolamine (Transderm-Scop) 1.5 mg TRDERM ONETIME PRN PRN Reason: PONV Last Admin: 02/28/20 09:10 Dose: 1.5 mg Documented by: Senna (Senna) 8.6 mg PO BID PRN PRN Reason: Constipation Simvastatin (Zocor) 10 mg PO BEDTIME [facility] Last Admin: 02/28/20 20:57 Dose: 10 mg Documented by: Discontinued Medications Acetaminophen (Tylenol) 975 mg PO ONETIME [facility] Stop: 02/28/20 16:00 Last Admin: 02/28/20 09:09 Dose: 975 mg Documented by: Aspirin (Ecotrin) 325 mg PO BID [facility] Bupivacaine HCl (Sensorcaine-Mpf 0.25%) Confirm Administered Dose 30 ml .ROUTE .STK-MED ONE Stop: 02/28/20 09:46 Last Admin: 02/28/20 12:24 Dose: 30 ml Documented by: Cefazolin Sodium (Ancef) Confirm Administered Dose 2 gm .ROUTE .STK-MED ONE Stop: 02/28/20 09:21 Last Admin: 02/28/20 12:14 Dose: 2 gm Documented by: Cefazolin Sodium (Ancef) Confirm Administered Dose 2 gm .ROUTE .STK-MED ONE Stop: 02/28/20 09:46 Morphine Sulfate 8 mg/Epinephrine HCl 0.3 mg/Cefuroxime Sodium 750 mg/Ketorolac Tromethamine 30 mg/Sodium Chloride 7.9 ml 0 mg .XX ONETIME ONE Stop: 02/28/20 12:01 Last Admin: 02/28/20 12:26 Dose: 788.3 mg Documented by: Ephedrine Sulfate (Ephedrine 25 Mg/5 Ml Syringe) Confirm Administered Dose 25 mg IV .STK-MED ONE Stop: 02/28/20 11:02 Famotidine (Pepcid) 20 mg PO Q12H [facility] Fentanyl (Sublimaze) Confirm Administered Dose 100 mcg .ROUTE .STK-MED ONE Stop: 02/28/20 09:18 Fentanyl (Sublimaze) 50 mcg IVPUSH Q5M PRN PRN Reason: Pain Stop: 02/28/20 14:00 Hydromorphone HCl (Dilaudid) 0.5 mg IVPUSH Q10M PRN PRN Reason: Pain (severe 7-10) Stop: 02/28/20 14:00 Lactated Ringer's (Ringers, Lactated) 1,000 mls @ 125 mls/hr IV ASDIRECTED [facility] Stop: 02/28/20 23:00 Last Admin: 02/28/20 09:31 Dose: 125 mls/hr Documented by: Lactated Ringer's (Ringers, Lactated) Confirm Administered Dose 1,000 mls @ as directed .ROUTE .STK-MED ONE Stop: 02/28/20 09:21 Vancomycin HCl 1 gm/Vancomycin HCl 500 mg/ Sodium Chloride 500 mls @ 250 mls/hr IV ONETIME ONE Stop: 02/28/20 11:59 Last Admin: 02/28/20 10:04 Dose: 250 mls/hr Documented by: Lidocaine HCl (Xylocaine-Mpf 1%) Confirm Administered Dose 2 mls @ as directed . ROUTE .STK-MED ONE Stop: 02/28/20 11:07 Iodine (Iodine 2% Mild Tincture) Confirm Administered Dose 30 ml .ROUTE .STK-MED ONE Stop: 02/28/20 09:46 Last Admin: 02/28/20 12:13 Dose: 18 ml Documented by: Ketamine HCl (Ketalar) Confirm Administered Dose 500 mg .ROUTE .STK-MED ONE Stop: 02/28/20 11:41 Ketorolac Tromethamine (Toradol) 15 mg IVPUSH Q6H PRN PRN Reason: Pain Last Admin: 02/29/20 01:35 Dose: 15 mg Documented by: Ketorolac Tromethamine (Toradol) Confirm Administered Dose 15 mg .ROUTE .STK-MED ONE Stop: 02/28/20 12:43 Lidocaine/Sodium Bicarbonate (Buffered Lidocaine 1% In Ns 8.4%) 0.25 ml IDERM ONETIME PRN PRN Reason: Prior to IV Start Stop: 02/28/20 18:00 Last Admin: 02/28/20 09:31 Dose: 0.25 ml Documented by: Midazolam HCl (Versed 1 Mg/Ml) Confirm Administered Dose 2 mg .ROUTE .STK-MED ONE Stop: 02/28/20 09:19 Ondansetron HCl (Zofran) 4 mg IVPUSH ONETIME PRN PRN Reason: Nausea/Vomiting Stop: 02/28/20 14:00 Ondansetron HCl (Zofran) Confirm Administered Dose 4 mg .ROUTE .STK-MED ONE Stop: 02/28/20 11:52 Oxycodone HCl (Oxycontin) 10 mg PO ONETIME [facility] Stop: 02/28/20 16:00 Last Admin: 02/28/20 09:10 Dose: 10 mg Documented by: Pregabalin (Lyrica) 50 mg PO ONETIME [facility] Stop: 02/28/20 16:00 Last Admin: 02/28/20 09:10 Dose: 50 mg Documented by: Propofol (Diprivan 20 Ml) Confirm Administered Dose 600 mg .ROUTE .STK-MED ONE Stop: 02/28/20 09:18 Sodium Chloride (Saline Flush) 10 ml FLUSH ASDIRECTED PRN PRN Reason: Keep Vein Open Stop: 02/28/20 18:00 Tranexamic Acid (Cyklokapron) Confirm Administered Dose 1,000 mg .ROUTE .STK-MED ONE Stop: 02/28/20 09:46 Last Admin: 02/28/20 12:25 Dose: 1,000 mg Documented by: Vancomycin HCl (Vancomycin) Confirm Administered Dose 1 gm .ROUTE .STK-MED ONE Stop: 02/28/20 09:46 Last Admin: 06/22/20 12:25 Dose: 1 gm Documented by: - Exam Quality Assessment: DVT Prophylaxis General: Alert, Oriented, Cooperative, No Acute Distress HEENT: Pupils Equal, Pupils Reactive, Mucous Membr. Moist/[place] Neck: Supple, Trachea Midline Lungs: Clear to Auscultation, Normal Respiratory Effort Cardiovascular: Regular Rate, Regular Rhythm GI/Abdominal Exam: Normal Bowel Sounds, Soft, Non-Tender, No Distention (Female) Exam: Deferred Back Exam: Normal Inspection, Full Range of Motion Extremities: Normal Capillary Refill, Leg Pain, Limited Range of Motion, Other (Bandage in place on left leg. Cooling pack in place. ) Peripheral Pulses: 2+: Radial (L), Radial (R), Dorsalis Pedis (L), Dorsalis Pedis (R) Skin: Warm, Dry, Intact Wound/Incisions: Dressing Dry and Intact, No Drainage Neurological: No New Focal Deficit Psy/Mental Status: Alert, Normal Affect, Normal Mood Sepsis Event Note - Evaluation Sepsis Screening Result: No Definite Risk - Focused Exam Vital Signs: Vital Signs Temp Pulse Resp BP Pulse Ox Pulse Ox Pulse Ox 02/29/20 06:02 94 L 02/29/20 01:57 98.4 F 83 95 02/29/20 01:39 86 L 02/29/20 01:34 100.6 F 81 16 131/69 85 L 02/28/20 19:17 98.1 F 61 20 131/70 100 Date Exam was Performed: 02/29/20 Time Exam was Performed: 08:54 Consult PN Assessment/Plan POD#: 1 Procedures: Procedures CULTURE AEROBIC IDENTIFY (08/19/14) DRAIN/INJ JOINT/BURSA W/O US (12/14/19) DX MAMMO INCL CAD UNI (02/19/19) EGD DIAGNOSTIC BRUSH WASH (11/27/18) ELECTROCARDIOGRAM TRACING (02/19/19) GAIT TRAINING THERAPY (01/28/17) HEPATOBIL SYST IMAGE W/DRUG (02/01/15) MANUAL THERAPY 1/> REGIONS (04/06/19) MASSAGE THERAPY (08/06/17) MICROBE SUSCEPTIBLE LACI (08/19/14) NEUROMUSCULAR REEDUCATION (08/06/17) PERQ DEV BREAST 1ST STRTCTC (02/19/19) PERQ DEVICE BREAST 1ST IMAG (02/19/19) PT EVAL LOW COMPLEX 20 MIN (04/06/19) THERAPEUTIC ACTIVITIES (08/06/17) THERAPEUTIC EXERCISES (04/26/19) TISSUE EXAM BY PATHOLOGIST (02/19/19) URINALYSIS AUTO W/O SCOPE (02/15/15) URINE BACTERIA CULTURE (08/19/14) X-RAY EXAM NECK SPINE 2-3 VW (04/01/17) X-RAY EXAM SURGICAL SPECIMEN (02/19/19) X-RAY EXAM THORAC SPINE 2VWS (04/01/17) (1) Osteoporosis SNOMED Code(s): 07116761 Code(s): M81.0 - AGE-RELATED OSTEOPOROSIS W/O CURRENT PATHOLOGICAL FRACTURE Priority: Low Current Visit: No Qualifiers: Osteoporosis type: unspecified Presence of current pathological fracture: unspecified Qualified Code(s): M81.0 - Age-related osteoporosis without current pathological fracture (2) Fatty liver SNOMED Code(s): 570661009 Code(s): K76.0 - FATTY (CHANGE OF) LIVER, NOT ELSEWHERE CLASSIFIED Priority: Medium Current Visit: No (3) Positive result for methicillin resistant Staphylococcus aureus (MRSA) screening SNOMED Code(s): 165289902 Code(s): Z22.322 - CARRIER OR SUSPECTED CARRIER OF METHICILLIN RESIS STAPH Priority: Medium Current Visit: Yes (4) HLD (hyperlipidemia) SNOMED Code(s): 19686161 Code(s): E78.5 - HYPERLIPIDEMIA, UNSPECIFIED Priority: Low Current Visit: No Qualifiers: Hyperlipidemia type: unspecified Qualified Code(s): E78.5 - Hyperlipidemia, unspecified (5) GERD (gastroesophageal reflux disease) SNOMED Code(s): 505228691 Code(s): K21.9 - GASTRO-ESOPHAGEAL REFLUX DISEASE WITHOUT ESOPHAGITIS Priority: Low Current Visit: No Qualifiers: Esophagitis presence: esophagitis presence not specified Qualified Code(s): K21.9 - Gastro-esophageal reflux disease without esophagitis (6) Obesity SNOMED Code(s): 043324538, 683110992 Code(s): E66.9 - OBESITY, UNSPECIFIED Current Visit: Yes Qualifiers: Obesity type: unspecified obesity type Obesity classification: adult class 1 (BMI 30 - 34.9) Serious obesity comorbidity presence: unspecified whether serious comorbidity present Body mass index: BMI 31.0-31.9 Qualified Code(s): E66.9 - Obesity, unspecified; Z68.31 - Body mass index (BMI) 31.0-31.9, adult (7) Hemochromatosis SNOMED Code(s): 286955382 Code(s): E83.119 - HEMOCHROMATOSIS, UNSPECIFIED Priority: Medium Current Visit: No Qualifiers: Hemochromatosis type: unspecified Qualified Code(s): E83.119 - Hemochromatosis, unspecified (8) Palpitations SNOMED Code(s): 45164586 Code(s): R00.2 - PALPITATIONS Priority: Low Current Visit: No (9) Chronic back pain SNOMED Code(s): 895507070 Code(s): M54.9 - DORSALGIA, UNSPECIFIED; G89.29 - OTHER CHRONIC PAIN Priority: Low Current Visit: No Qualifiers: Back pain location: back pain in unspecified location Back pain laterality: left Qualified Code(s): M54.9 - Dorsalgia, unspecified; G89.29 - Other chronic pain (10) Sciatica SNOMED Code(s): 20917803 Code(s): M54.30 - SCIATICA, UNSPECIFIED SIDE Priority: Medium Current Visit: No Qualifiers: Laterality: left Qualified Code(s): M54.32 - Sciatica, left side (11) HTN (hypertension) SNOMED Code(s): 21806044 Code(s): I10 - ESSENTIAL (PRIMARY) HYPERTENSION Priority: Medium Current Visit: No Qualifiers: Hypertension type: essential hypertension Qualified Code(s): I10 - Essential (primary) hypertension (12) Hypothyroid SNOMED Code(s): 79893200 Code(s): E03.9 - HYPOTHYROIDISM, UNSPECIFIED Priority: Medium Current Visit: No Qualifiers: Hypothyroidism type: unspecified Qualified Code(s): E03.9 - Hypothyroidism, unspecified (13) Osteoarthritis SNOMED Code(s): 269880801 Code(s): M19.90 - UNSPECIFIED OSTEOARTHRITIS, UNSPECIFIED SITE Priority: High Current Visit: Yes Qualifiers: Osteoarthritis location: hip Osteoarthritis type: primary Laterality: left Qualified Code(s): M16.12 - Unilateral primary osteoarthritis, left hip (14) S/P total hip arthroplasty SNOMED Code(s): 471723825264, 833715695205 Code(s): Z96.649 - PRESENCE OF UNSPECIFIED ARTIFICIAL HIP JOINT Priority: High Current Visit: Yes Qualifiers: Laterality: left Qualified Code(s): Z96.642 - Presence of left artificial hip joint Problem List Initiated/Reviewed/Updated: Yes My Orders Last 24 Hours: My Active Orders 02/28/20 11:18 Isolation [COMM] Routine Plan: I/P: Acute: S/P left total hip arthroplasty - post-operative day 1 -DVT prophylaxis and pain management per primary care team -PT/OT -IS/RT -Monitor oxygen saturation -Titrate oxygen as needed -Home medications reviewed -Vital signs stable -Monitor labs -Pre-operative Hgb was 14.4; Now 11.6 -Pre-operative GFR was 56; Now 50 Osteoarthritis of left hip -Pain management per primary care team Chronic: HTN OA Osteoporosis Hypothyroidism Fatty liver Positive MRSA screen Palpitations Chronic back pain Left leg sciatica HLD GERD Obesity Hemochromatosis Plan: Home CPAP CM for discharge planning GI prophylaxis Home medications as indicated Other orders as listed above Routine AM labs She is a full code. Her PCP is Roger Longoria NP From a hospitalist standpoint Jeana is doing well. She has been up ambulating and working with therapies. She is off of oxygen and has urinated. Pain is controlled. Her labs and vital signs remain stable. She is cleared for discharge pending primary team and PT/OT agreement. Thank you for allowing us to participate in the care of this patient!!
--- NOTE | 2020-02-29 07:54 | PCM48HPAN ---
Post Anesthesia Note - EVALUATION WITHIN 48HRS OF ANESTHETIC Vital Signs in Normal Range: Yes Patient Participated in Evaluation: Yes Respiratory Function Stable: Yes Airway Patent: Yes Cardiovascular Function Stable: Yes Hydration Status Stable: Yes Pain Control Satisfactory: Yes Nausea and Vomiting Control Satisfactory: Yes Mental Status Recovered: Yes Vital Signs: Last Vital Signs Temp 36.9 C 02/29/20 01:57 Pulse 83 02/29/20 01:57 Resp 16 02/29/20 01:34 BP 131/69 02/29/20 01:34 Pulse Ox 94 L 02/29/20 06:02
[2020-02-29] MEDS ORDERED: Pantoprazole 40 MG Tab.CR PO SCH (09:00)
[2020-02-29] MEDS ORDERED: Losartan 100 MG Tab PO SCH (09:00)
[2020-02-29] MEDS ORDERED: Hydrochlorothiazide 25 MG Tab PO SCH (09:00)
[2020-02-29] MEDS ORDERED: Cholecalciferol (Vitamin D3) 5,000 UNIT Tab PO SCH (09:00)
[2020-02-29] MEDS ORDERED: Metoprolol Succinate 25 MG Tab.ER PO SCH (09:00)
[2020-02-29] MEDS: Docusate Sodium 100 MG Cap PO SCH (09:02)
[2020-02-29] MEDS: Potassium Chloride 20 MEQ Tab.ER PO SCH (09:04)
[2020-02-29 13:00] VITALS: BP 124/70; PULSE 77
--- NOTE | 2020-03-02 06:41 | PCM.SURGPN ---
- General Info Date of Service: 02/29/20 POD#: 1 Functional Status: Reports: Pain Controlled, Tolerating Diet, Ambulating, Urinating, Incentive Spirometry - Patient Data Vitals - Most Recent: Last Vital Signs Temp 98.8 F 02/29/20 11:33 Pulse 77 02/29/20 12:06 Resp 18 02/29/20 11:33 BP 124/70 02/29/20 11:33 Pulse Ox 94 L 02/29/20 12:06 Weight - Most Recent: 183 lb Med Orders - Current: Current Medications Discontinued Medications Acetaminophen (Tylenol) 975 mg PO ONETIME [facility] Stop: 02/28/20 16:00 Last Admin: 02/28/20 09:09 Dose: 975 mg Documented by: Aspirin (Ecotrin) 325 mg PO BID [facility] [place] Aspirin (Ecotrin) 325 mg PO BID [facility] [place] Last Admin: 02/29/20 09:02 Dose: 325 mg Documented by: Bisacodyl (Dulcolax) 5 mg PO DAILY PRN PRN Reason: Constipation Bupivacaine HCl (Sensorcaine-Mpf 0.25%) Confirm Administered Dose 30 ml .ROUTE .STK-MED ONE Stop: 02/28/20 09:46 Last Admin: 02/28/20 12:24 Dose: 30 ml Documented by: Cefazolin Sodium (Ancef) Confirm Administered Dose 2 gm .ROUTE .STK-MED ONE Stop: 02/28/20 09:21 Last Admin: 02/28/20 12:14 Dose: 2 gm Documented by: Cefazolin Sodium (Ancef) Confirm Administered Dose 2 gm .ROUTE .STK-MED ONE Stop: 02/28/20 09:46 Cholecalciferol (Vitamin D3) 5,000 unit PO DAILY [facility] [place] Last Admin: 02/29/20 09:02 Dose: 5,000 unit Documented by: Morphine Sulfate 8 mg/Epinephrine HCl 0.3 mg/Cefuroxime Sodium 750 mg/Ketorolac Tromethamine 30 mg/Sodium Chloride 7.9 ml 0 mg .XX ONETIME ONE Stop: 02/28/20 12:01 Last Admin: 02/28/20 12:26 Dose: 788.3 mg Documented by: Cyclobenzaprine HCl (Flexeril) 10 mg PO TID PRN PRN Reason: Spasms Last Admin: 02/29/20 09:00 Dose: 10 mg Documented by: Docusate Sodium (Colace) 100 mg PO BID [facility] [place] Last Admin: 02/29/20 09:02 Dose: 100 mg Documented by: Ephedrine Sulfate (Ephedrine 25 Mg/5 Ml Syringe) Confirm Administered Dose 25 mg IV .STK-MED ONE Stop: 02/28/20 11:02 Famotidine (Pepcid) 20 mg PO Q12H [facility] [place] Fentanyl (Sublimaze) Confirm Administered Dose 100 mcg .ROUTE .STK-MED ONE Stop: 02/28/20 09:18 Fentanyl (Sublimaze) 50 mcg IVPUSH Q5M PRN PRN Reason: Pain Stop: 02/28/20 14:00 Hydrochlorothiazide (Hydrochlorothiazide) 25 mg PO DAILY [facility] [place] Last Admin: 02/29/20 09:04 Dose: 25 mg Documented by: Hydromorphone HCl (Dilaudid) 0.5 mg IVPUSH Q10M PRN PRN Reason: Pain (severe 7-10) Stop: 02/28/20 14:00 Lactated Ringer's (Ringers, Lactated) 1,000 mls @ 125 mls/hr IV ASDIRECTED [facility] [place] Stop: 02/28/20 23:00 Last Admin: 02/28/20 09:31 Dose: 125 mls/hr Documented by: Cefazolin Sodium/Dextrose 2 gm (/ Premix) 50 mls @ 100 mls/hr IV Q8H [facility] [place] Stop: 02/29/20 10:14 Last Admin: 02/29/20 09:05 Dose: 100 mls/hr Documented by: Lactated Ringer's (Ringers, Lactated) Confirm Administered Dose 1,000 mls @ as directed .ROUTE .STK-MED ONE Stop: 02/28/20 09:21 Vancomycin HCl 1 gm/Vancomycin HCl 500 mg/ Sodium Chloride 500 mls @ 250 mls/hr IV ONETIME ONE Stop: 02/28/20 11:59 Last Admin: 02/28/20 10:04 Dose: 250 mls/hr Documented by: Lidocaine HCl (Xylocaine-Mpf 1%) Confirm Administered Dose 2 mls @ as directed .ROUTE .STK-MED ONE Stop: 02/28/20 11:07 Iodine (Iodine 2% Mild Tincture) Confirm Administered Dose 30 ml .ROUTE .STK-MED ONE Stop: 02/28/20 09:46 Last Admin: 02/28/20 12:13 Dose: 18 ml Documented by: Ketamine HCl (Ketalar) Confirm Administered Dose 500 mg .ROUTE .STK-MED ONE Stop: 02/28/20 11:41 Ketorolac Tromethamine (Toradol) 15 mg IVPUSH Q6H PRN PRN Reason: Pain Last Admin: 02/29/20 01:35 Dose: 15 mg Documented by: Ketorolac Tromethamine (Toradol) Confirm Administered Dose 15 mg .ROUTE .STK-MED ONE Stop: 02/28/20 12:43 Levothyroxine Sodium (Levothyroxine) 75 mcg PO ACBREAKFAST [facility] [place] Last Admin: 02/29/20 06:53 Dose: 75 mcg Documented by: Lidocaine/Sodium Bicarbonate (Buffered Lidocaine 1% In Ns 8.4%) 0.25 ml IDERM ONETIME PRN PRN Reason: Prior to IV Start Stop: 02/28/20 18:00 Last Admin: 02/28/20 09:31 Dose: 0.25 ml Documented by: Losartan Potassium (Cozaar) 100 mg PO DAILY [facility] [place] Last Admin: 02/29/20 09:03 Dose: 100 mg Documented by: Magnesium Hydroxide (Milk Of Magnesia) 30 ml PO BID PRN PRN Reason: Constipation Metoprolol Succinate (Toprol Xl) 25 mg PO DAILY [facility] [place] Last Admin: 02/29/20 09:01 Dose: 25 mg Documented by: Midazolam HCl (Versed 1 Mg/Ml) Confirm Administered Dose 2 mg .ROUTE .STK-MED ONE Stop: 02/28/20 09:19 Morphine Sulfate (Morphine) 2 mg IVPUSH Q2H PRN PRN Reason: Breakthrough Pain Naloxone HCl (Narcan) 0.1 mg IVPUSH Q5M PRN PRN Reason: Oversedation Ondansetron HCl (Zofran) 4 mg IVPUSH Q6H PRN PRN Reason: Nausea/Vomiting Last Admin: 02/28/20 16:35 Dose: 4 mg Documented by: Ondansetron HCl (Zofran) 4 mg IVPUSH ONETIME PRN PRN Reason: Nausea/Vomiting Stop: 02/28/20 14:00 Ondansetron HCl (Zofran) Confirm Administered Dose 4 mg .ROUTE .STK-MED ONE Stop: 02/28/20 11:52 Oxycodone HCl (Oxycontin) 10 mg PO ONETIME [facility] [place] Stop: 02/28/20 16:00 Last Admin: 02/28/20 09:10 Dose: 10 mg Documented by: Oxycodone/Acetaminophen (Percocet 325-5 Mg) 1 - 2 tab PO Q4H PRN PRN Reason: Pain Last Admin: 02/29/20 11:30 Dose: 2 tab Documented by: Pantoprazole Sodium (Protonix) 40 mg PO DAILY [facility] [place] Last Admin: 02/29/20 09:03 Dose: 40 mg Documented by: Potassium Chloride (Klor-Con M20) 40 meq PO TID [facility] [place] Last Admin: 02/29/20 09:04 Dose: 40 meq Documented by: Pregabalin (Lyrica) 50 mg PO ONETIME [facility] [place] Stop: 02/28/20 16:00 Last Admin: 02/28/20 09:10 Dose: 50 mg Documented by: Propofol (Diprivan 20 Ml) Confirm Administered Dose 600 mg .ROUTE .STK-MED ONE Stop: 02/28/20 09:18 Scopolamine (Transderm-Scop) 1.5 mg TRDERM ONETIME PRN PRN Reason: PONV Last Admin: 02/28/20 09:10 Dose: 1.5 mg Documented by: Senna (Senna) 8.6 mg PO BID PRN PRN Reason: Constipation Simvastatin (Zocor) 10 mg PO BEDTIME [facility] [place] Last Admin: 02/28/20 20:57 Dose: 10 mg Documented by: Sodium Chloride (Saline Flush) 10 ml FLUSH ASDIRECTED PRN PRN Reason: Keep Vein Open Stop: 02/28/20 18:00 Tranexamic Acid (Cyklokapron) Confirm Administered Dose 1,000 mg .ROUTE .STK-MED ONE Stop: 02/28/20 09:46 Last Admin: 02/28/20 12:25 Dose: 1,000 mg Documented by: Vancomycin HCl (Vancomycin) Confirm Administered Dose 1 gm .ROUTE .STK-MED ONE Stop: 02/28/20 09:46 Last Admin: 02/28/20 12:25 Dose: 1 gm Documented by: - Exam Wound/Incisions: Dressing Dry and Intact General: Alert, Cooperative, No Acute Distress Lungs: Normal Respiratory Effort Extremities: Other (NVS intact for BLE. Brent's negative.) Sepsis Event Note - Evaluation Sepsis Screening Result: No Definite Risk - Focused Exam Date Exam was Performed: 03/02/20 Time Exam was Performed: 06:40 - Problem List Review Problem List Initiated/Reviewed/Updated: Yes - Assessment Assessment (Free Text/Narrative):: POD#1 - left JANELL - Plan Plan (Free Text/Narrative):: 1. Hgb 11.6. 2. Discharge to home today. 3. 325mg ASA PO BID, frequent mobility, TEDs. 4. Outpatient therapy. The pt was evaluated by Dr. Gomez.
--- NOTE | 2020-03-02 06:43 | PCM.DCSUM1 ---
Discharge Summary - Hospital Course Brief History: Jeana is a 64 yo female who underwent left JANELL with Dr. Gomez on 02-28-2020. The procedure was completed under spinal anesthesia with MAC. The pt tolerated the procedure well and was admitted to the Medical-Surgical Unit. The pt received Ancef bertha-operatively. She participated in P.T. and O.T. and progressed well. She was allowed to WBAT and used a FWW for mobility. The pt's surgical wound was dressed with a Mepilex dressing and remained clean and dry. On POD#1, the pt was started on 325mg ASA BID for VTE prophylaxis. The pt used TEDs and SCDs also. On POD#1, the pt's hemoglobin was 11.6. Medical management was provided by the Hospitalist service and the pt's hospital course was uneventful. On POD#1, the pt was deemed appropriate for discharge to home with family. - Discharge Data Discharge Date: 02/29/20 Discharge Disposition: Home, Self-Care 01 Condition: Good - Referral to Home Health Primary Care Physician: Susie Longoria NP - Patient Summary/Data Consults: Consultations 02/28/20 06:00 Consult to Physician [CONS] Routine OT Evaluation and Treatment [CONS] Routine PT Evaluation and Treatment [CONS] Routine - Patient Instructions Diet: Usual Diet as Tolerated Activity: Apply Ice, As Tolerated, Elevate Extremity, Full Weight Bearing Activity, Other: Follow the total hip precautions. Driving: Do Not Drive Showering/Bathing: May Shower Wound/Incision Care: Keep Operative Site/Wound Site Clean and Dry, Do NOT Change Dressing Notify Provider of: Fever, Increased Pain, Swelling and Redness, Drainage, Nausea and/or Vomiting Other/Special Instructions: Please get up and moving around EVERY HOUR while awake. This helps to prevent blood clots. Please use your walker and have help with mobility as needed. Take a short walk in your home every hour while awake. Please take 325mg aspirin TWICE daily. The aspirin is being used for blood clot prevention and not for pain management so please do not miss a dose of the medication. You could use a medication like Pepcid or Tagamet and a medication like Prilosec or Nexium to protect your stomach while you are using the aspirin. At home, please complete the exercises that you learned during the Hospital stay. Schedule for physical therapy. Use the pain medication as needed. The medication may cause drowsiness and constipation. Contact your primary care provider for instructions if you are constipated. You may use a stool softener like docusate sodium or Colace 100mg twice daily and/or a laxative like Miralax daily for constipation. Increase your water and fiber intake while you are using the pain medication. Discontinue use of the pain medication as soon as able. Please do not use other medications that may cause drowsiness (other pain medications, anxiety pills, cold medications, sleeping pills, etc) while using the prescription pain medication. Do not use alcohol while using the pain medication. You may use acetaminophen or Tylenol for pain management, however, please ensure you are not using over 4000 mg or 4 grams of acetaminophen per day from all sources. Your pain medication has 325mg of acetaminophen per tablet. At this time, please do not use ibuprofen (Motrin, Advil) or naproxen (Aleve) for pain management as you are using the aspirin. When the aspirin course is completed in 5 weeks, you could use ibuprofen or naproxen for pain management (if this is allowed by your primary care provider). Wear the HOMERO hose during the day and you may remove these at night. Elevate the limb to decrease swelling. Place ice to the area often. Place a towel between your skin and the blue pad. Use the incentive spirometer often. Take deep breaths throughout the day. Please keep the dressing in place until follow-up. Notify the Clinic if the dressing becomes saturated. Increase your protein intake while you are healing. Call the Clinic with questions or concerns - [phone] and leave a message for the nurse. - Discharge Plan *PRESCRIPTION DRUG MONITORING PROGRAM REVIEWED*: No *COPY OF PRESCRIPTION DRUG MONITORING REPORT IN PATIENT DELMER: No Prescriptions/Med Rec: Cyclobenzaprine [Flexeril] 10 mg PO BID PRN #20 tab PRN Reason: Spasms Home Medications: Home Meds Levothyroxine Sodium 75 mcg PO DAILY 12/19/16 [History] Metoprolol Succinate 25 mg PO DAILY 12/19/16 [History] Cranberry Conc/C/Bacill Coag [Cranberry Tablet] 1 tab PO DAILY 06/27/17 [History] Ubidecarenone [Coq-10] 200 mg PO DAILY 06/27/17 [History] Losartan/Hydrochlorothiazide [Hyzaar 100-25 Tablet] 1 tab PO DAILY 11/27/18 [History] Potassium Chloride 40 meq PO TID 02/18/19 [History] Cholecalciferol (Vitamin D3) [Vitamin D3] 1 cap PO DAILY 02/25/20 [History] Pantoprazole Sodium [Protonix] 40 mg PO DAILY 02/25/20 [History] atorvaSTATin [Lipitor] 10 mg PO DAILY 02/25/20 [History] Amberen 1 tab PO DAILY 02/28/20 [History] Acetaminophen/oxyCODONE [Percocet 325-5 MG] 1 - 2 tab PO Q4H PRN tablet 02/29/20 [Rx] Aspirin [Ecotrin EC] 325 mg PO BID tab.ec 02/29/20 [Rx] Cyclobenzaprine [Flexeril] 10 mg PO BID PRN #20 tab 02/29/20 [Rx] Cyclobenzaprine [Flexeril] 10 mg PO TID PRN tablet 02/29/20 [Rx] Docusate Sodium [Colace] 100 mg PO BID cap 02/29/20 [Rx] bisacodyL [Dulcolax] 5 mg PO DAILY PRN tablet 02/29/20 [Rx] Patient Handouts: Total Knee Replacement, Care After, [id number], Aspirin, ASA oral tablets, MRSA Infection, Diagnosis, Adult Referrals: Ani Chandler PA-C [Physician Oenologist] - (Please follow up with Ani Chandler PA-C on the following dates- March 07 at 1:00, March 14 at 11:30, and April 18 at 3:00.) - Discharge Summary/Plan Comment DC Time >30 min.: No - Patient Data Vitals - Most Recent: Last Vital Signs Temp 98.8 F 02/29/20 11:33 Pulse 77 02/29/20 12:06 Resp 18 02/29/20 11:33 BP 124/70 02/29/20 11:33 Pulse Ox 94 L 02/29/20 12:06 Weight - Most Recent: 183 lb Med Orders - Current: Current Medications Discontinued Medications Acetaminophen (Tylenol) 975 mg PO ONETIME [facility]OS Stop: 02/28/20 16:00 Last Admin: 02/28/20 09:09 Dose: 975 mg Documented by: Aspirin (Ecotrin) 325 mg PO BID CALOS Aspirin (Ecotrin) 325 mg PO BID [facility]OS Last Admin: 02/29/20 09:02 Dose: 325 mg Documented by: Bisacodyl (Dulcolax) 5 mg PO DAILY PRN PRN Reason: Constipation Bupivacaine HCl (Sensorcaine-Mpf 0.25%) Confirm Administered Dose 30 ml .ROUTE .STK-MED ONE Stop: 02/28/20 09:46 Last Admin: 02/28/20 12:24 Dose: 30 ml Documented by: Cefazolin Sodium (Ancef) Confirm Administered Dose 2 gm .ROUTE .STK-MED ONE Stop: 02/28/20 09:21 Last Admin: 02/28/20 12:14 Dose: 2 gm Documented by: Cefazolin Sodium (Ancef) Confirm Administered Dose 2 gm .ROUTE .STK-MED ONE Stop: 02/28/20 09:46 Cholecalciferol (Vitamin D3) 5,000 unit PO DAILY [facility] Last Admin: 02/29/20 09:02 Dose: 5,000 unit Documented by: Morphine Sulfate 8 mg/Epinephrine HCl 0.3 mg/Cefuroxime Sodium 750 mg/Ketorolac Tromethamine 30 mg/Sodium Chloride 7.9 ml 0 mg .XX ONETIME ONE Stop: 02/28/20 12:01 Last Admin: 02/28/20 12:26 Dose: 788.3 mg Documented by: Cyclobenzaprine HCl (Flexeril) 10 mg PO TID PRN PRN Reason: Spasms Last Admin: 02/29/20 09:00 Dose: 10 mg Documented by: Docusate Sodium (Colace) 100 mg PO BID [facility] Last Admin: 02/29/20 09:02 Dose: 100 mg Documented by: Ephedrine Sulfate (Ephedrine 25 Mg/5 Ml Syringe) Confirm Administered Dose 25 mg IV .STK-MED ONE Stop: 02/28/20 11:02 Famotidine (Pepcid) 20 mg PO Q12H [facility] Fentanyl (Sublimaze) Confirm Administered Dose 100 mcg .ROUTE .STK-MED ONE Stop: 02/28/20 09:18 Fentanyl (Sublimaze) 50 mcg IVPUSH Q5M PRN PRN Reason: Pain Stop: 02/28/20 14:00 Hydrochlorothiazide (Hydrochlorothiazide) 25 mg PO DAILY [facility] Last Admin: 02/29/20 09:04 Dose: 25 mg Documented by: Hydromorphone HCl (Dilaudid) 0.5 mg IVPUSH Q10M PRN PRN Reason: Pain (severe 7-10) Stop: 02/28/20 14:00 Lactated Ringer's (Ringers, Lactated) 1,000 mls @ 125 mls/hr IV ASDIRECTED [facility] Stop: 02/28/20 23:00 Last Admin: 02/28/20 09:31 Dose: 125 mls/hr Documented by: Cefazolin Sodium/Dextrose 2 gm (/ Premix) 50 mls @ 100 mls/hr IV Q8H [facility] Stop: 02/29/20 10:14 Last Admin: 02/29/20 09:05 Dose: 100 mls/hr Documented by: Lactated Ringer's (Ringers, Lactated) Confirm Administered Dose 1,000 mls @ as directed .ROUTE .STK-MED ONE Stop: 02/28/20 09:21 Vancomycin HCl 1 gm/Vancomycin HCl 500 mg/ Sodium Chloride 500 mls @ 250 mls/hr IV ONETIME ONE Stop: 02/28/20 11:59 Last Admin: 02/28/20 10:04 Dose: 250 mls/hr Documented by: Lidocaine HCl (Xylocaine-Mpf 1%) Confirm Administered Dose 2 mls @ as directed .ROUTE .STK-MED ONE Stop: 02/28/20 11:07 Iodine (Iodine 2% Mild Tincture) Confirm Administered Dose 30 ml .ROUTE .STK-MED ONE Stop: 02/28/20 09:46 Last Admin: 02/28/20 12:13 Dose: 18 ml Documented by: Ketamine HCl (Ketalar) Confirm Administered Dose 500 mg .ROUTE .STK-MED ONE Stop: 02/28/20 11:41 Ketorolac Tromethamine (Toradol) 15 mg IVPUSH Q6H PRN PRN Reason: Pain Last Admin: 02/29/20 01:35 Dose: 15 mg Documented by: Ketorolac Tromethamine (Toradol) Confirm Administered Dose 15 mg .ROUTE .STK-MED ONE Stop: 02/28/20 12:43 Levothyroxine Sodium (Levothyroxine) 75 mcg PO ACBREAKFAST [facility] Last Admin: 02/29/20 06:53 Dose: 75 mcg Documented by: Lidocaine/Sodium Bicarbonate (Buffered Lidocaine 1% In Ns 8.4%) 0.25 ml IDERM ONETIME PRN PRN Reason: Prior to IV Start Stop: 02/28/20 18:00 Last Admin: 02/28/20 09:31 Dose: 0.25 ml Documented by: Losartan Potassium (Cozaar) 100 mg PO DAILY [facility] Last Admin: 02/29/20 09:03 Dose: 100 mg Documented by: Magnesium Hydroxide (Milk Of Magnesia) 30 ml PO BID PRN PRN Reason: Constipation Metoprolol Succinate (Toprol Xl) 25 mg PO DAILY [facility] Last Admin: 02/29/20 09:01 Dose: 25 mg Documented by: Midazolam HCl (Versed 1 Mg/Ml) Confirm Administered Dose 2 mg .ROUTE .STK-MED ONE Stop: 02/28/20 09:19 Morphine Sulfate (Morphine) 2 mg IVPUSH Q2H PRN PRN Reason: Breakthrough Pain Naloxone HCl (Narcan) 0.1 mg IVPUSH Q5M PRN PRN Reason: Oversedation Ondansetron HCl (Zofran) 4 mg IVPUSH Q6H PRN PRN Reason: Nausea/Vomiting Last Admin: 02/28/20 16:35 Dose: 4 mg Documented by: Ondansetron HCl (Zofran) 4 mg IVPUSH ONETIME PRN PRN Reason: Nausea/Vomiting Stop: 02/28/20 14:00 Ondansetron HCl (Zofran) Confirm Administered Dose 4 mg .ROUTE .STK-MED ONE Stop: 02/28/20 11:52 Oxycodone HCl (Oxycontin) 10 mg PO ONETIME [facility] Stop: 02/28/20 16:00 Last Admin: 02/28/20 09:10 Dose: 10 mg Documented by: Oxycodone/Acetaminophen (Percocet 325-5 Mg) 1 - 2 tab PO Q4H PRN PRN Reason: Pain Last Admin: 02/29/20 11:30 Dose: 2 tab Documented by: Pantoprazole Sodium (Protonix) 40 mg PO DAILY [facility] Last Admin: 02/29/20 09:03 Dose: 40 mg Documented by: Potassium Chloride (Klor-Con M20) 40 meq PO TID [facility] Last Admin: 02/29/20 09:04 Dose: 40 meq Documented by: Pregabalin (Lyrica) 50 mg PO ONETIME [facility] Stop: 02/28/20 16:00 Last Admin: 02/28/20 09:10 Dose: 50 mg Documented by: Propofol (Diprivan 20 Ml) Confirm Administered Dose 600 mg .ROUTE .STK-MED ONE Stop: 02/28/20 09:18 Scopolamine (Transderm-Scop) 1.5 mg TRDERM ONETIME PRN PRN Reason: PONV Last Admin: 02/28/20 09:10 Dose: 1.5 mg Documented by: Senna (Senna) 8.6 mg PO BID PRN PRN Reason: Constipation Simvastatin (Zocor) 10 mg PO BEDTIME [facility] Last Admin: 02/28/20 20:57 Dose: 10 mg Documented by: Sodium Chloride (Saline Flush) 10 ml FLUSH ASDIRECTED PRN PRN Reason: Keep Vein Open Stop: 02/28/20 18:00 Tranexamic Acid (Cyklokapron) Confirm Administered Dose 1,000 mg .ROUTE .STK-MED ONE Stop: 02/28/20 09:46 Last Admin: 02/28/20 12:25 Dose: 1,000 mg Documented by: Vancomycin HCl (Vancomycin) Confirm Administered Dose 1 gm .ROUTE .STK-MED ONE Stop: 02/28/20 09:46 Last Admin: 02/28/20 12:25 Dose: 1 gm Documented by:
--- NOTE | 2020-03-06 08:07 | PCM.OPNOTE ---
- General Post-Op/Procedure Note Date of Surgery/Procedure: 02/28/20 Operative Procedure(s): left total hip arthroplasty Pre Op Diagnosis: left hip osteoarthrosis Post-Op Diagnosis: Same Anesthesia Technique: Local, MAC, Spinal Primary Surgeon: Juan J Gomez Anesthesia Provider: Karli Davison Loom Repairer: Fina Suggs EBL in mLs: 350 Complications: None Condition: Good Free Text/Narrative:: 3 stem 52 cup 28-2.7
--- NOTE | 2020-03-07 01:50 | OR ---
DATE OF OPERATION: 02/28/2020 SURGEON: Juan J Gomez MD OPERATION PERFORMED: Left total hip arthroplasty. PREOPERATIVE DIAGNOSIS: Left hip osteoarthrosis. POSTOPERATIVE DIAGNOSIS: Left hip osteoarthrosis. ANESTHESIA: Local MAC with spinal prep. ANESTHESIA PROVIDER: Karli Davison CRNA CRIME DATA SPECIALIST: Fina Suggs LPN. ESTIMATED BLOOD LOSS: 350 mL. COMPLICATIONS: None. CONDITION: Stable. IMPLANT: 1. [place] size 3 Accolade II stem. 2. Girish size 3, 52 mm multi hole Tritanium II acetabular cup. 3. Girish size 28- 2.7 MDM components. DESCRIPTION OF PROCEDURE: The patient was identified in the preop holding area. Proper site was marked and identified by the surgeon. The patient was taken back to the operating theater, where after adequate anesthesia, the patient was placed in the right lateral decubitus position. Axillary roll was placed. All bony prominences were well padded. Pegs were then placed and well padded. The patient's gluteal fold was parallel to the floor. Right hip was then sterilely prepped and draped in the usual sterile fashion. OR-wide time-out was performed. The patient received 2 g IV Ancef. Standard posterior incision was made and this was taken down to the IT band and gluteal fascia, which was incised along the incisional length. Charnley retractor was then placed. Attention was turned to the femur. Takedown of the short external rotators from the level of the piriformis down to the lesser trochanter was done. The hip was then dislocated. Neck cut was completed and found to be adequate. Attention was turned to the acetabulum. Anterior and posterior acetabular retractors were placed and circumferential removal of the labrum as well as the pulvinar was done. Starting with 48 reamers, I was able to ream up to a 52 which was found to have good adequate purchase. The patient was noted to have slight soft cancellous bone. The 52 mm cup was impacted into place and one 6.5 mm screw was then placed. The MDM acetabular shell was then impacted into place and was found to be adequately fixated. Attention was turned to the femur with a box chisel out laterally. Starter awl was placed down the canal. Starting with 0 broach, I was able to broach up to a size 3 which was found to be rotationally and vertically stable. +0 trial compoments were then trialed, there was found to be a little bit long, so we trialed a -2.7 and was found to have adequate latter-day of leg lengths and stable throughout range of motion. The trial implants were then removed. The size 3 Accolade II stem was impacted in place. The MDM components 28- 2.7 were constructed on the back table and impacted onto the stem and the hip was relocated. A #5 Ethibond suture was used for closure of short external rotators and capsule. 1 L dilute Betadine solution was irrigated through the hip along with 3 L pulse lavage irrigation with Ancef. Topical tranexamic acid and vancomycin powder were then applied. Periarticular injection was completed. A #2 barbed suture was used for closure IT band and gluteal fascia. 2-0 Vicryl was used subcutaneously and Prineo was used for the skin. The patient tolerated the procedure well, sent to PACU in stable condition. MMODAL /[id number]
== END 2020-02-29 13:30 | disposition home or self-care (01) | DRG 470 ==
LOC: JD.MS 08:59
PROVIDERS: ADMIT Orthopaedic Surgery; ATTEND Orthopaedic Surgery
PROC: 0SRB0JZ Replacement of Left Hip Joint with Synthetic Substitute, Open Approach (ICD-10-PCS; principal; 2020-02-28)
DX: M16.12 Unilateral primary osteoarthritis, left hip (principal); I10 Essential (primary) hypertension; M81.0 Age-related osteoporosis without current pathological fracture; E03.9 Hypothyroidism, unspecified; M54.9 Dorsalgia, unspecified; G89.29 Other chronic pain; K21.9 Gastro-esophageal reflux disease without esophagitis; Z11.59 Encounter for screening for other viral diseases; E66.9 Obesity, unspecified; E78.5 Hyperlipidemia, unspecified; E83.119 Hemochromatosis, unspecified; R00.2 Palpitations; M54.32 Sciatica, left side; K76.0 Fatty (change of) liver, not elsewhere classified; Z81.0 Family history of intellectual disabilities; Z88.2 Allergy status to sulfonamides; Z79.890 Hormone replacement therapy; Z79.82 Long term (current) use of aspirin; Z79.899 Other long term (current) drug therapy; Z90.710 Acquired absence of both cervix and uterus; Z22.322 Carrier or suspected carrier of Methicillin resistant Staphylococcus aureus
CPT/HCPCS: 01214; 36415; 73501-26-LT; 73501-LT; 80053; 85027; 86850; 86900; 86901; 87641; 94760; 97110-GP; 97116-GP; 97162-GP; 97165-GO; 97535-GO; A9270-GY; C1713; C1776; J0171; J0690; J0697; J1885; J2001; J2250; J2270; J2405; J2704; J3010; J3370; J3490; J7040; J7120; U0002

== ENCOUNTER 2021-06-07 10:22 | Emergency (ER) | payer MEDICARE, BC ==
[2021-06-07 10:50] VITALS: BP 152/85; PULSE 82
[2021-06-07] MEDS ORDERED: Sodium Chloride 0.9% 10 ML Syringe FLUSH PRN (10:59)
[2021-06-07] MEDS ORDERED: Ondansetron 4 MG/2 ML SDV IVPUSH ONE (11:00)
[2021-06-07] MEDS ORDERED: Sodium Chloride 0.9% 1,000 ML IV STA (11:00)
[2021-06-07] MEDS ORDERED: HYDROmorphone 0.5 MG/0.5 ML Syringe IVPUSH ONE (11:00)
--- NOTE | 2021-06-07 11:05 | EDM.PDOC ---
ED HPI GENERAL MEDICAL PROBLEM - General Chief Complaint: Abdominal Pain Stated Complaint: ABDOMINAL PAIN Time Seen by Provider: 06/07/21 10:55 Source of Information: Reports: Patient, RN Notes Reviewed History Limitations: Reports: No Limitations - History of Present Illness INITIAL COMMENTS - FREE TEXT/NARRATIVE: Patient is a 65-year-old female presenting to the emergency department with complaints of epigastric and right upper quadrant abdominal pain that began last evening. Patient reports he has known gallbladder disease and is scheduled to have her gallbladder out on 18 June. She ate pulled pork last evening and shortly thereafter the pain began. She is had no vomiting the pain has been persistent. She tried a chewable [place] with no relief. She called and spoke to her surgeon, Dr. Winkler, who advised her to come to the emergency department for work-up and that he would likely take her gallbladder out today. Patient denies any symptoms of Covid. She is had no fever or chills. Denies diarrhea. Abdomen Pain Score (Numeric/FACES): 10 - Related Data Allergies Allergy/AdvReac Type Severity Reaction Status Date / Time erythromycin base AdvReac Drowsiness Verified 02/28/20 14:24 Sulfa (Sulfonamide AdvReac urinary Verified 06/07/21 10:51 Antibiotics) urgency Home Meds: Home Meds Levothyroxine Sodium 75 mcg PO DAILY 12/19/16 [History] Metoprolol Succinate 25 mg PO DAILY 12/19/16 [History] Ubidecarenone [Coq-10] 200 mg PO DAILY 06/27/17 [History] Losartan/Hydrochlorothiazide [Hyzaar 100-25 Tablet] 1 tab PO DAILY 11/27/18 [History] Pantoprazole Sodium [Protonix] 40 mg PO DAILY 02/25/20 [History] atorvaSTATin [Lipitor] 10 mg PO DAILY 02/25/20 [History] Aspirin [Ecotrin EC] 325 mg PO BID tab.ec 02/29/20 [Rx] Celecoxib 200 mg PO DAILY 06/07/21 [History] Hydrocodone/Acetaminophen [Hydrocodone-Acetamin 5-325 mg] 1 each PO Q4H PRN #12 tablet 06/07/21 [Rx] Hyoscyamine Sulfate [Levsin-Sl] 0.25 mg SL Q4H PRN #20 tab.subl 06/07/21 [Rx] Ondansetron [Zofran ODT] 4 mg PO Q6H PRN #10 tab.dis 06/07/21 [Rx] Zinc 50 mg PO DAILY 06/07/21 [History] Past Medical History HEENT History: Reports: Impaired Vision Other HEENT History: wears glasses Cardiovascular History: Reports: High Cholesterol, Hypertension Respiratory History: Reports: None Gastrointestinal History: Reports: GERD, Other (See Below) Other Gastrointestinal History: fatty liver Genitourinary History: Reports: None [employer] BUSINESS AGENT History: Reports: Other (See Below) Other [employer] AGENT History: breast cyst, fibroid tumor Musculoskeletal History: Reports: RA Neurological History: Reports: None Psychiatric History: Reports: None Endocrine/Metabolic History: Reports: Hypothyroidism, Obesity/BMI 30+ Hematologic History: Reports: Hemochromatosis Other Hematologic History: 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, high iron Immunologic History: Reports: None Oncologic (Cancer) History: Reports: None Dermatologic History: Reports: None - Infectious Disease History Infectious Disease History: Reports: None - Past Surgical History Head Surgeries/Procedures: Reports: None HEENT Surgical History: Reports: Adenoidectomy, Tonsillectomy Cardiovascular Surgical History: Reports: None Respiratory Surgical History: Reports: None GI Surgical History: Reports: Colonoscopy, EGD Female Surgical History: Reports: Breast Biopsy, D&C, Hysterectomy Endocrine Surgical History: Reports: None Neurological Surgical History: Reports: None Musculoskeletal Surgical History: Reports: None, Knee Replacement Other Musculoskeletal Surgeries/Procedures:: Right total knee replacement Oncologic Surgical History: Reports: None Dermatological Surgical History: Reports: None Social & Family History - Family History Family Medical History: No Pertinent Family History - Caffeine Use Caffeine Use: Reports: None Caffeine Use Comment: "soda once in awhile" ED ROS GENERAL - Review of Systems Review Of Systems: Comprehensive ROS is negative, except as noted in HPI. ED EXAM, GI/ABD - Physical Exam Exam: See Below Exam Limited By: No Limitations General Appearance: Alert, WD/WN, No Apparent Distress Respiratory/Chest: No Respiratory Distress, Lungs Clear, Normal Breath Sounds, No Accessory Muscle Use, Chest Non-Tender Cardiovascular: Normal Peripheral Pulses, Regular Rate, Rhythm, No Edema, No Gallop, No JVD, No Murmur, No Rub GI/Abdominal Exam: Normal Bowel Sounds, Soft, No Organomegaly, No Distention, No Abnormal Bruit, No Mass, Pelvis Stable, Tender (RUQ and epigastric. Positive Holland' sign.) Neurological: Alert, Oriented, CN II-XII Intact, Normal Cognition, Normal Gait, Normal Reflexes, No Motor/Sensory Deficits Psychiatric: Normal Affect, Normal Mood Skin Exam: Warm, Dry, Intact, Normal Color, No Rash Course - Vital Signs Last Recorded V/S: Last Vital Signs Temp 98.5 F 06/07/21 10:41 Pulse 82 06/07/21 10:41 Resp 18 06/07/21 10:41 BP 152/85 H 06/07/21 10:41 Pulse Ox 100 06/07/21 10:41 - Orders/Labs/Meds Orders: Active Orders 24 hr Category Date Time Status Peripheral IV Care [RC] . DIRECTED Care 06/07/21 10:59 Active CORONAVIRUS COVID-19 ISAK [MOLEC] Routine Lab 06/07/21 11:15 Received Hyoscyamine [Hyomax-SL] Med 06/07/21 12:15 Once 0.25 mg SL ONETIME ONE Sodium Chloride 0.9% [Normal Saline] 1,000 ml Med 06/07/21 11:00 Active IV NOW Sodium Chloride 0.9% [Saline Flush] Med 06/07/21 10:59 Active 10 ml FLUSH ASDIRECTED PRN Peripheral IV Insertion Adult [OM.PC] Stat Oth 06/07/21 10:59 Ordered Medication Orders Hyoscyamine (Hyoscyamine 0.125 Mg Tab.Sl) 0.25 mg SL ONETIME ONE Stop: 06/07/21 12:16 Sodium Chloride (Normal Saline) 1,000 mls @ 150 mls/hr IV NOW STA Stop: 06/07/21 17:39 Last Admin: 06/07/21 11:35 Dose: 150 mls/hr Documented by: ALMA Sodium Chloride (Sodium Chloride 0.9% 10 Ml Syringe) 10 ml FLUSH ASDIRECTED PRN PRN Reason: Keep Vein Open Last Admin: 06/07/21 11:36 Dose: 10 ml Documented by: ALMA Labs: Laboratory Tests 06/07/21 06/07/21 Range/Units 11:15 11:15 WBC 6.59 (3.98-10.04) K/mm3 RBC 4.72 (3.98-5.22) M/mm3 Hgb 15.0 (11.2-15.7) gm/dl Hct 46.0 H (34.1-44.9) % MCV 97.5 H D (79.4-94.8) fl MCH 31.8 (25.6-32.2) pg MCHC 32.6 (32.2-35.5) g/dl RDW Std Deviation 44.1 (36.4-46.3) fL Plt Count 263 (182-369) K/mm3 MPV 10.3 (9.4-12.3) fl Neut % (Auto) 64.1 (34.0-71.1) % Lymph % (Auto) 22.5 (19.3-51.7) % Bollinger % (Auto) 8.3 (4.7-12.5) % Eos % (Auto) 4.6 (0.7-5.8) Baso % (Auto) 0.3 (0.1-1.2) % Neut # (Auto) 4.23 (1.56-6.13) K/mm3 Lymph # (Auto) 1.48 (1.18-3.74) K/mm3 Bollinger # (Auto) 0.55 H (0.24-0.36) K/mm3 Eos # (Auto) 0.30 (0.04-0.36) K/mm3 Baso # (Auto) 0.02 (0.01-0.08) K/mm3 Sodium 140 (136-145) mEq/L Potassium 3.5 (3.5-5.1) mEq/L Chloride 102 (98-107) mEq/L Carbon Dioxide 29 (21-32) mEq/L Anion Gap 12.5 (5-15) BUN 19 H (7-18) mg/dL Creatinine 1.2 H (0.55-1.02) mg/dL Est Cr Clr Drug Dosing 39.82 mL/min Estimated GFR (MDRD) 45 (>60) mL/min BUN/Creatinine Ratio 15.8 (14-18) Glucose 119 H (70-99) mg/dL Calcium 9.9 (8.5-10.1) mg/dL Total Bilirubin 1.7 H (0.2-1.0) mg/dL GGT 650 H (5-55) U/L AST 795 H (15-37) U/L ALT 677 H (14-59) U/L Alkaline Phosphatase 253 H (46-116) U/L C-Reactive Protein 1.1 H* (<1.0) mg/dL Total Protein 7.9 (6.4-8.2) g/dl Albumin 3.9 (3.4-5.0) g/dl Globulin 4.0 gm/dL Albumin/Globulin Ratio 1.0 (1-2) Lipase 200 (73-393) U/L Meds: Medications Generic Name Dose Route Start Last Admin Trade Name Freq PRN Reason Stop Dose Admin Hyoscyamine 0.25 mg 06/07/21 12:15 Hyoscyamine 0.125 Mg Tab.Sl SL 06/07/21 12:16 ONETIME ONE Sodium Chloride 1,000 mls @ 150 mls/hr 06/07/21 11:00 06/07/21 11:35 Normal Saline IV 06/07/21 17:39 150 mls/hr NOW STA Administration Sodium Chloride 10 ml 06/07/21 10:59 06/07/21 11:36 Sodium Chloride 0.9% 10 Ml Syringe FLUSH 10 ml ASDIRECTED PRN Administration Keep Vein Open Discontinued Medications Generic Name Dose Route Start Last Admin Trade Name Freq PRN Reason Stop Dose Admin Hydromorphone HCl 0.5 mg 06/07/21 11:00 06/07/21 11:35 Hydromorphone 0.5 Mg/0.5 Ml Syringe IVPUSH 06/07/21 11:01 0.5 mg ONETIME ONE Administration Ondansetron HCl 4 mg 06/07/21 11:00 06/07/21 11:35 Ondansetron 4 Mg/2 Ml Sdv IVPUSH 06/07/21 11:01 4 mg ONETIME ONE Administration - Re-Assessments/Exams Free Text/Narrative Re-Assessment/Exam: Patient is a 65-year-old female presenting to the emergency department with recurrence of right upper quadrant abdominal pain. Reports she has known gallbladder disease and is scheduled to have her gallbladder taken out on 18 June. She called her surgeon and he recommended she come to the ER for evaluation and that he be updated. On exam, she does have significant epigastric and right upper quadrant tenderness. Denies vomiting. I have ordered blood work, Covid test, and ultrasound of the right upper quadrant abdomen. 06/07/21 12:16 Patient is feeling better after the medications given. Hematology is signi ficant for total bili elevated 1.7, GGT 650, AST 795, ALT 677, alkaline phosphatase 253, CRP 1.1. Lipase is normal. WBCs are normal. Right upper quadrant ultrasound impression as follows 1. Sludge seen within the gallbladder as well as small polyp. There is minimal edema being seen around the gallbladder wall. No biliary duct dilatation is seen. Please correlate if patient has any symptoms to suggest a calculus cholecystitis. 2. Fatty infiltration within the liver. 3. No additional abnormality is otherwise seen on the right upper quadrant abdominal ultrasound. Case was discussed with surgeon on-call, Dr. Winkler. He advised that if she is able to manage her pain, he would like to proceed with outpatient surgery. He will talk to scheduling to see if they can move her procedure up from the 11th. I will discharge her home with prescription for hycosamin, hydrocodone with Tylenol, and Zofran. Discussed that if she is not able to manage her pain at home, she should return to the emergency department. She verbalized understanding of this. Discharge instructions as documented. Departure - Departure Time of Disposition: 12:16 Disposition: Home, Self-Care 01 Condition: Good Clinical Impression: Biliary colic - Discharge Information *PRESCRIPTION DRUG MONITORING PROGRAM REVIEWED*: Yes *COPY OF PRESCRIPTION DRUG MONITORING REPORT IN PATIENT DELMER: No Prescriptions: Hydrocodone/Acetaminophen [Hydrocodone-Acetamin 5-325 mg] 1 each PO Q4H PRN #12 tablet PRN Reason: Pain Hyoscyamine Sulfate [Levsin-Sl] 0.25 mg SL Q4H PRN #20 tab.subl PRN Reason: Abdominal Pain Ondansetron [Zofran ODT] 4 mg PO Q6H PRN #10 tab.dis PRN Reason: Nausea/Vomiting Instructions: Abdominal Pain, Adult, [id number] Referrals: Susie Longoria NP [Primary Care Provider] - Forms: ED Department Discharge Additional Instructions: You were seen in the emergency department today for recurrence of right upper quadrant abdominal pain with a known diagnosis of gallbladder disease. Work-up included blood work, Covid test, and ultrasound of your gallbladder. There was no evidence of gallbladder infection, cholecystitis. Your case was discussed with your surgeon, Dr. Winkler. If your pain is well controlled and your symptoms are manageable at home, he would like to proceed with outpatient surgery. You have received prescriptions for hycosamine, hydrocodone with Tylenol, and Zofran. Use these medications as prescribed. Avoid fatty foods. If pain should return and you are unable to manage at home, please return to the emergency department. Sepsis Event Note (ED) - Evaluation Sepsis Screening Result: No Definite Risk - Focused Exam Vital Signs: Vital Signs Temp Pulse Resp BP Pulse Ox 06/07/21 10:41 98.5 F 82 18 152/85 H 100 - My Orders Last 24 Hours: My Active Orders 06/07/21 10:59 Peripheral IV Care [RC] . DIRECTED Sodium Chloride 0.9% [Saline Flush] 10 ml FLUSH ASDIRECTED PRN Peripheral IV Insertion Adult [OM.PC] Stat 06/07/21 11:00 Sodium Chloride 0.9% [Normal Saline] 1,000 ml IV NOW 06/07/21 11:15 CORONAVIRUS COVID-19 ISAK [MOLEC] Routine 06/07/21 12:15 Hyoscyamine [Hyomax-SL] 0.25 mg SL ONETIME ONE - Assessment/Plan Last 24 Hours: My Active Orders 06/07/21 10:59 Peripheral IV Care [RC] . DIRECTED Sodium Chloride 0.9% [Saline Flush] 10 ml FLUSH ASDIRECTED PRN Peripheral IV Insertion Adult [OM.PC] Stat 06/07/21 11:00 Sodium Chloride 0.9% [Normal Saline] 1,000 ml IV NOW 06/07/21 11:15 CORONAVIRUS COVID-19 ISAK [MOLEC] Routine 06/07/21 12:15 Hyoscyamine [Hyomax-SL] 0.25 mg SL ONETIME ONE
--- NOTE | 2021-06-07 11:56 | US ---
Limited abdominal ultrasound: Multiple real-time images were obtained of the upper right abdomen. Comparison: No prior ultrasound study is available. Liver is somewhat echogenic likely representing fatty infiltration. Small amount of edema is seen around the gallbladder wall. Sludge is noted within the gallbladder with a small polyp also being seen within the gallbladder measuring 5.3 mm. No biliary duct dilatation is seen. Right kidney shows no hydronephrosis or mass. Right kidney has a length of 11.2 cm. Pancreas appears within normal limits. Main portal vein shows normal hepatopedal flow. Impression: 1. Sludge seen within the gallbladder as well as a small polyp. There is minimal edema being seen around the gallbladder wall. No biliary duct dilatation is seen. Please correlate if patient has any symptoms to suggest acalculous cholecystitis. 2. Fatty infiltration within the liver. 3. No additional abnormality is otherwise seen on right upper quadrant abdominal ultrasound. Diagnostic code #3
[2021-06-07] MEDS ORDERED: Hyoscyamine 0.125 MG Tab.SL SL ONE (12:15)
== END 2021-06-07 12:00 | disposition home or self-care (01) ==
LOC: JD.ED 10:22
DX: K80.50 Calculus of bile duct without cholangitis or cholecystitis without obstruction (principal); E78.00 Pure hypercholesterolemia, unspecified; I10 Essential (primary) hypertension; K21.9 Gastro-esophageal reflux disease without esophagitis; E03.9 Hypothyroidism, unspecified; E66.9 Obesity, unspecified; Z79.899 Other long term (current) drug therapy; Z88.2 Allergy status to sulfonamides; Z88.1 Allergy status to other antibiotic agents; Z20.822 Contact with and (suspected) exposure to COVID-19; Z68.32 Body mass index [BMI] 32.0-32.9, adult
CPT/HCPCS: 36415; 76705; 80053; 82977; 83690; 85025; 86140; 96374; 96375; 99284; A9270; J1170; J2405; J7030; U0002

== ENCOUNTER 2021-06-18 09:01 | Day surgery (SDC) | payer MEDICARE, BC ==
[~2021-06-18 09:01] MED LIST changes: -Acetaminophen 325 MG Tab PO SCH; -Bisacodyl 5 MG Tab PO PRN; +Bupivacaine 0.5% 30 ML SDV ONE; -Cyclobenzaprine 10 MG Tab PO PRN; +FLU Vacc QS2021(65UP)/MF59C/PF 60 MCG/0.5 ML Syringe IM ONE; +Lidocaine 1% with EPINEPHrine 1:100,000 10 ML MDV ONE; -Magnesium Hydroxide 400 MG/5 ML Susp 30 ML Cup PO PRN; -Morphine 2 MG/ML Syringe IVPUSH PRN; -Naloxone 0.4 MG/ML SDV IVPUSH PRN; -Ondansetron 4 MG/2 ML SDV IVPUSH PRN; -Pregabalin 25 MG Cap PO SCH; -Scopolamine 1.5 MG Transdermal Patch TRDERM PRN; -Sennosides 8.6 MG Tab PO PRN; -oxyCODONE ER 10 MG TAB.ER PO SCH
[2021-06-18] MEDS ORDERED: Propofol 200 MG/20 ML SDV ONE (09:13)
[2021-06-18] MEDS ORDERED: Rocuronium 50 MG/5 ML Vial ONE (09:13)
[2021-06-18] MEDS ORDERED: fentaNYL 250 MCG/5 ML SDV ONE (09:13)
[2021-06-18] MEDS ORDERED: Midazolam 1 MG/ML 2 ML SDV ONE (09:13)
[2021-06-18] MEDS ORDERED: Ondansetron 4 MG/2 ML SDV ONE (09:13)
[2021-06-18] MEDS ORDERED: Lactated Ringers 1,000 ML ONE (09:13)
[2021-06-18] MEDS ORDERED: Dexamethasone 4 MG/ML 5 ML MDV ONE (09:13)
[2021-06-18] MEDS ORDERED: ceFAZolin 1 GM Vial ONE ×2 (09:13→09:14)
[2021-06-18] MEDS ORDERED: Scopolamine 1.5 MG Transdermal Patch TRDERM ONE (09:28)
--- NOTE | 2021-06-18 09:35 | PCM.PREANE ---
Preanesthetic Assessment - Anesthesia/Transfusion/Family Hx Anesthesia History: Prior Anesthesia Without Reaction Family History of Anesthesia Reaction: No Transfusion History: No Prior Transfusion(s) Type of Transfusion Reactions: Reports: Unknown Intubation History: Unknown - Review of Systems General: No Symptoms, Other (fatty liver, cysts in kidneys and breasts) Pulmonary: Other (HAZEL with CPAP) Cardiovascular: Palpitations (rare flutter feeling, cant remember last time. HTN, denies chest pain) Gastrointestinal: Other (GERD on meds, feels like it is controlled) Neurological: No Symptoms Other: Reports: Thyroid Problems (on meds, well controlled) - Physical Assessment NPO Status Date: 06/17/21 NPO Status Time: 21:00 Weight: 86 kg ASA Class: 2 Mental Status: Alert & Oriented x3 Airway Class: Mallampati = 2 Dentition: Reports: Normal Dentition Thyro-Mental Finger Breadths: 3 Mouth Opening Finger Breadths: 3 - Allergies Allergies/Adverse Reactions: Allergies Allergy/AdvReac Type Severity Reaction Status Date / Time erythromycin base AdvReac Drowsiness Verified 06/17/21 09:41 Sulfa (Sulfonamide AdvReac urinary Verified 06/17/21 09:41 Antibiotics) urgency - Blood Blood Available: No Product(s) Available: None - Anesthesia Plan Pre-Op Medication Ordered: None Beta Lizett: Metoprolol Med Last Dose Date: 06/18/21 Med Last Dose Time: 08:15 - Acknowledgements Anesthesia Type Planned: General Anesthesia Pt an Appropriate Candidate for the Planned Anesthesia: Yes Alternatives and Risks of Anesthesia Discussed w Pt/Guardian: Yes Pt/Guardian Understands and Agrees with Anesthesia Plan: Yes PreAnesthesia Questionnaire HEENT History: Reports: Impaired Vision Other HEENT History: wears glasses Cardiovascular History: Reports: High Cholesterol, Hypertension, Other (See Below) Other Cardiovascular History: palpitations Respiratory History: Reports: Sleep Apnea Gastrointestinal History: Reports: Colon Polyp, GERD, Hemorrhoids, Other (See Below) Other Gastrointestinal History: fatty liver, post op nausea and vomiting Genitourinary History: Reports: Other (See Below) Other Genitourinary History: renal cyst LICENSED WEIGHER History: Reports: Other (See Below) Other OB/BYN History: breast cyst, fibroid tumor Musculoskeletal History: Reports: Osteoarthritis, RA Neurological History: Reports: None Psychiatric History: Reports: None Endocrine/Metabolic History: Reports: Hypothyroidism, Obesity/BMI 30+ Hematologic History: Reports: Hemochromatosis Other Hematologic History: 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, high iron Immunologic History: Reports: None Oncologic (Cancer) History: Reports: None Dermatologic History: Reports: None - Infectious Disease History Infectious Disease History: Reports: None - Past Surgical History Head Surgeries/Procedures: Reports: None HEENT Surgical History: Reports: Adenoidectomy, Tonsillectomy Cardiovascular Surgical History: Reports: None Respiratory Surgical History: Reports: None GI Surgical History: Reports: Colonoscopy, EGD Female Surgical History: Reports: Breast Biopsy, D&C, Hysterectomy Endocrine Surgical History: Reports: None Neurological Surgical History: Reports: None Musculoskeletal Surgical History: Reports: None, Knee Replacement Other Musculoskeletal Surgeries/Procedures:: bilatal total knee replacement Oncologic Surgical History: Reports: None Dermatological Surgical History: Reports: Other (See Below) - SUBSTANCE USE Tobacco Use Status *Q: Never Tobacco User Recreational Drug Use History: No - HOME MEDS Home Medications: Home Meds Metoprolol Succinate 25 mg PO DAILY 12/19/16 [History] Ubidecarenone [Coq-10] 200 mg PO Q48H 06/27/17 [History] Losartan/Hydrochlorothiazide [Hyzaar 100-25 Tablet] 1 tab PO DAILY 11/27/18 [ History] Pantoprazole Sodium [Protonix] 40 mg PO DAILY 02/25/20 [History] atorvaSTATin [Lipitor] 20 mg PO DAILY 02/25/20 [History] Celecoxib 200 mg PO BID 06/07/21 [History] Zinc 50 mg PO DAILY 06/07/21 [History] Aspirin 81 mg PO DAILY 06/17/21 [History] Levothyroxine [Synthroid] 88 mcg PO DAILY 06/17/21 [History] - CURRENT (IN HOUSE) MEDS Current Meds: Current Medications Lactated Ringer's (Ringers, Lactated) 1,000 mls @ 125 mls/hr IV ASDIRECTED CALOS Stop: 06/18/21 23:00 Lidocaine/Sodium Bicarbonate (Lidocaine 1%/Sod Bicarbonate In Ns 8.4% 1 Ml Syringe) 0.25 ml IDERM ONETIME PRN PRN Reason: Prior to IV Start Stop: 06/18/21 18:00 Scopolamine (Scopolamine 1.5 Mg Transdermal Patch) 1.5 mg TRDERM ONETIME ONE Stop: 06/18/21 09:29 Sodium Chloride (Sodium Chloride 0.9% 10 Ml Syringe) 10 ml FLUSH ASDIRECTED PRN PRN Reason: Keep Vein Open Stop: 06/18/21 18:00 Discontinued Medications Bupivacaine HCl (Bupivacaine 0.5% 30 Ml Sdv) Confirm Administered Dose 30 ml .ROUTE .STK-MED ONE Stop: 06/18/21 08:41 Cefazolin Sodium (Cefazolin 1 Gm Vial) Confirm Administered Dose 1 gm .ROUTE .STK-MED ONE Stop: 06/18/21 09:14 Cefazolin Sodium (Cefazolin 1 Gm Vial) Confirm Administered Dose 1 gm .ROUTE .STK-MED ONE Stop: 06/18/21 09:15 Dexamethasone (Dexamethasone 4 Mg/Ml 5 Ml Mdv) Confirm Administered Dose 20 mg .ROUTE .STK-MED ONE Stop: 06/18/21 09:14 Fentanyl (Fentanyl 250 Mcg/5 Ml Sdv) Confirm Administered Dose 250 mcg .ROUTE .STK-MED ONE Stop: 06/18/21 09:14 Lactated Ringer's (Ringers, Lactated) Confirm Administered Dose 1,000 mls @ as directed .ROUTE .STK-MED ONE Stop: 06/18/21 09:14 Influenza Virus Vaccine (Pharmacy To Dose - Influenza Vaccine) 1 each IM ONETIME CALOS Influenza Virus Vaccine (Flu Vacc Nv7601(65up)/Mf59c/Pf 60 Mcg/0.5 Ml Syringe) 60 mcg IM .ONCE ONE Stop: 06/17/21 09:46 Lidocaine/Epinephrine (Lidocaine 1% With Epinephrine 1:100,000 10 Ml Mdv) Confirm Administered Dose 10 ml .ROUTE .STK-MED ONE Stop: 06/18/21 08:41 Midazolam HCl (Midazolam 1 Mg/Ml 2 Ml Sdv) Confirm Administered Dose 2 mg .ROUTE .STK-MED ONE Stop: 06/18/21 09:14 Ondansetron HCl (Ondansetron 4 Mg/2 Ml Sdv) Confirm Administered Dose 4 mg .ROUTE .STK-MED ONE Stop: 06/18/21 09:14 Propofol (Propofol 200 Mg/20 Ml Sdv) Confirm Administered Dose 200 mg .ROUTE .STK-MED ONE Stop: 06/18/21 09:14 Rocuronium [place] (Rocuronium 50 Mg/5 Ml Vial) Confirm Administered Dose 50 mg .ROUTE .STK-MED ONE Stop: 06/18/21 09:14
[2021-06-18] MEDS ORDERED: Lidocaine 1% with EPINEPHrine 1:100,000 10 ML MDV ONE (10:34)
[2021-06-18] MEDS ORDERED: Ketamine 500 mg/10 ML MDV ONE (10:41)
[2021-06-18] MEDS ORDERED: fentaNYL 100 MCG/2 ML SDV IVPUSH PRN (10:57)
[2021-06-18] MEDS ORDERED: Ondansetron 4 MG/2 ML SDV IVPUSH PRN (10:57)
[2021-06-18] MEDS ORDERED: HYDROmorphone 0.5 MG/0.5 ML Syringe IVPUSH PRN (10:57)
[2021-06-18] MEDS ORDERED: fentaNYL 100 MCG/2 ML SDV ONE (11:17)
[2021-06-18] MEDS ORDERED: Sodium Chloride 0.9% 0 ML ONE (12:04)
[2021-06-18] MEDS ORDERED: Iopamidol 612 MG/ML 50 ML SDV ONE (12:07)
[2021-06-18] MEDS ORDERED: Sodium Chloride 0.9% 50 ML SDV ONE (12:07)
--- NOTE | 2021-06-18 13:42 | PCM.POSTAN ---
POST ANESTHESIA ASSESSMENT - MENTAL STATUS Mental Status: Alert, Oriented - VITAL SIGNS Vital Signs: Last Vital Signs Temp 36.9 C 06/18/21 09:15 Pulse 66 06/18/21 09:15 Resp 16 06/18/21 09:15 BP 154/90 H 06/18/21 09:15 Pulse Ox 97 06/18/21 09:15 - RESPIRATORY Respiratory Status: Respiratory Rate WNL, Airway Patent, O2 Saturation Stable, Supplemental Oxygen - CARDIOVASCULAR CV Status: Pulse Rate WNL, Blood Pressure Stable - GASTROINTESTINAL GI Status: No Symptoms - PAIN Pain Score: 0 - POST OP HYDRATION Hydration Status: Adequate & Stable
--- NOTE | 2021-06-18 14:10 | OR ---
DATE OF OPERATION: 06/18/2021 SURGEON: Maral Winkler MD PREOPERATIVE DIAGNOSIS: Symptomatic cholelithiasis. POSTOPERATIVE DIAGNOSIS: 1. Cholelithiasis. 2. Cholecystitis. 3. Patent biliary system OPERATION PERFORMED: 1. Laparoscopic cholecystectomy. 2. Intraoperative cholangiogram. ESTIMATED BLOOD LOSS: 30 mL. ANESTHESIA: General anesthesia with local consisting of 1:1 mixture of 0.5% bupivacaine without epinephrine and 1% lidocaine with epinephrine 1:100,000. COMPLICATIONS: None. NEED FOR SKILLED CHANNELER OUTSOLE: Skilled assistance of our nurse practitioner Lucy Gomez CNP was needed. SHe assisted with patient positioning, holding retractors and camera during the operation and incision closure at the end of the operation. INDICATIONS AND CONSENT: Ms. Roberts is a 65-year-old female who has been having episodes of right upper quadrant pain. This is recurrent. They happen after eating. The patient had undergone a prior ultrasound which confirmed gallstones as well as gallbladder polyps. Due to symptoms and the findings, I recommended we proceed with cholecystectomy as the source of the symptoms. We discussed risks, benefits, and alternatives with the patient and informed consent was obtained. DESCRIPTION OF PROCEDURE: The patient was taken to the operating room, placed in supine position, padded appropriately. SCDs were placed. Preop antibiotics consisting of Ancef were given and then general endotracheal anesthesia was induced. Abdomen was prepped and draped in the usual sterile fashion. I began the procedure by injecting local anesthetic in the infraumbilical site. An incision was made. Umbilical stalk was elevated and a Veress needle was placed and the abdomen was insufflated to 15 mmHg. Then, a 12 mm trocar was placed at the infraumbilical site under direct laparoscopic visualization. Cursory examination of the abdomen did not reveal any injuries due to Veress needle or trocar insertion. Three additional 5 mm trocars were placed, one in the subxiphoid and two in the right subcostal area. Then, the patient was placed in the slight reverse Trendelenburg with left side down and we focused on the gallbladder which was grasped and elevated and then we began to dissect the Calot triangle. There was a significant amount of adhesions in the Calot triangle that were carefully taken down with a combination of electrosurgery and blunt dissection with [place] graspers. The gallbladder was long and was adhered to the gallbladder fossa. Calot triangle was not clear, but with meticulous dissection, we were able to isolate the cystic artery, which was aberrant running anterior to the cystic duct. This was clipped with three clips and transected since that two clips remained in incision. Then, we proceeded with dissection of the cystic duct. Cystic duct was eventually dissected well enough to be able to be visualized. It appeared thick and dilated. Due to this appearance, we opted to proceed with the intraoperative cholangiogram. A Dang catheter was brought into the field with the contrast and it was appropriately placed into the infundibulum and intraoperative cholangiogram was performed. There was a small defect within the cystic duct, but the common bile duct, hepatic biliary system appeared to be patent and there was flow of contrast into the duodenum. Once this was done, then we confirmed that what we were dissecting was actually the cystic duct. This was transected and after clipping with three clips, and there was a small stone within the cystic duct that was removed. Then, the cystic duct stump was reinforced with Endoloop that was 0 Vicryl. Once this was done, then we removed the gallbladder from its fossa with electrosurgery and placed in the EndoCatch bag. Then, the dissection area as well as the liver were irrigated with 1 L of normal saline and suctioned out. The patient was hemostatic. Of note, we had to place one more additional 5 mm trocar in the right upper quadrant as we encountered a small bleeding vessel that required further exposure. Therefore, additional trocar was needed. Once the procedure was done, the gallbladder was removed through the infraumbilical incision and this incision was closed at the fascial level with 0 Vicryl stitch using Justyn-Sabino device and then skin at all four sites was closed with 4-0 Monocryl and Dermabond was placed. The patient tolerated the procedure well. She will be allowed to recover and return home, come back to the clinic in 2 weeks for followup. ANTHONY /[id number] ODETTE
--- NOTE | 2021-06-18 14:35 | PCM48HPAN ---
Post Anesthesia Note - EVALUATION WITHIN 48HRS OF ANESTHETIC Vital Signs in Normal Range: Yes Patient Participated in Evaluation: Yes Respiratory Function Stable: Yes Airway Patent: Yes Cardiovascular Function Stable: Yes Hydration Status Stable: Yes Pain Control Satisfactory: Yes Nausea and Vomiting Control Satisfactory: Yes Mental Status Recovered: Yes Vital Signs: Last Vital Signs Temp 36.7 C 06/18/21 13:35 Pulse 63 06/18/21 14:15 Resp 15 06/18/21 14:15 BP 122/63 06/18/21 14:15 Pulse Ox 98 06/18/21 14:20
[2021-06-18] MEDS ORDERED: Acetaminophen/HYDROcodone 325-5 MG Tab PO ONE (14:56)
--- NOTE | 2021-06-18 14:59 | CR ---
Operative cholangiogram: Multiple fluoroscopic spot views were obtained during operative cholangiogram study. Comparison: Prior CT abdomen study of 06/07/21. Opacification of the CHD and CBD are noted as well as a portion of the intrahepatic ducts. Small amount of contrast is seen extending into the duodenum. No filling defects are seen to indicate definite retained stone. Impression: 1. No abnormality is identified on operative cholangiogram study. Diagnostic code #1
[2021-06-18 17:06] VITALS: BP 122/74; PULSE 68
== END 2021-06-18 16:37 | disposition home or self-care (01) ==
LOC: JD.SDS 09:01
PROVIDERS: ATTEND Surgery
DX: K81.1 Chronic cholecystitis (principal); I10 Essential (primary) hypertension; E03.9 Hypothyroidism, unspecified; G47.33 Obstructive sleep apnea (adult) (pediatric); E66.9 Obesity, unspecified; Z98.890 Other specified postprocedural states; Z79.82 Long term (current) use of aspirin; Z79.890 Hormone replacement therapy; Z88.2 Allergy status to sulfonamides; Z88.8 Allergy status to other drugs, medicaments and biological substances
CPT/HCPCS: 47563; 76000; 88304; 90694; A9270; G0008; J0690; J1100; J2250; J2405; J2704; J2710; J3010; J3490; J7120; Q9967; 00790

== ENCOUNTER 2023-01-25 14:15 | Emergency (ER) | payer MEDICARE, BC ==
[2023-01-25 15:39] LABS: ANION GAP 11.9 (5-15); BUN/CREATININE RATIO 17.5 (14-18); CREATININE 1.2 mg/dL (0.55-1.02); EST CRCL DRUG DOSING (CG) 38.75 mL/min; PHOSPHORUS 2.6 mg/dL (2.6-4.7); POTASSIUM,K 2.9 mEq/L (3.5-5.1); TSH 1.033 uIU/mL (0.358-3.74)
[2023-01-25 17:10] VITALS: BP 110/65; PULSE 58
== END 2023-01-25 17:10 | disposition home or self-care (01) ==
LOC: JD.ED 14:15
DX: E87.1 Hypo-osmolality and hyponatremia (principal); E89.0 Postprocedural hypothyroidism; E78.00 Pure hypercholesterolemia, unspecified; I10 Essential (primary) hypertension; K21.9 Gastro-esophageal reflux disease without esophagitis; M06.9 Rheumatoid arthritis, unspecified; E66.9 Obesity, unspecified; Z88.1 Allergy status to other antibiotic agents; Z88.2 Allergy status to sulfonamides; Z79.82 Long term (current) use of aspirin; Z79.899 Other long term (current) drug therapy; Z68.35 Body mass index [BMI] 35.0-35.9, adult
CPT/HCPCS: 36415; 80048; 83970; 84100; 84443; 99283; 99284

== ENCOUNTER 2025-05-30 08:02 | Day surgery (SDC) | payer BC, MEDICARE ==
[~2025-05-30 08:02] MED LIST changes: -Bupivacaine 0.5% 30 ML SDV ONE; -FLU Vacc QS2021(65UP)/MF59C/PF 60 MCG/0.5 ML Syringe IM ONE; -Lactated Ringers 1,000 ML IV SCH; -Lidocaine 1% with EPINEPHrine 1:100,000 10 ML MDV ONE; -Lidocaine 1%/Sod Bicarbonate in NS 8.4% 1 ML Syringe IDERM PRN; +Scopalamine 1mg/3day Transdermal Patch TRDERM PRN; +Sodium Chloride 0.9% 10 ML Syringe FLUSH SCH
[2025-05-30] MEDS ORDERED: fentaNYL 100 MCG/2 ML SDV IVPUSH PRN ×2 (08:10→08:49)
[2025-05-30] MEDS ORDERED: Ondansetron 4 MG/2 ML SDV IVPUSH PRN ×2 (08:10→08:49)
[2025-05-30] MEDS ORDERED: Naloxone 0.4 MG/ML SDV IVPUSH PRN (08:10)
[2025-05-30] MEDS: Lactated Ringers 1,000 ML IV SCH (08:30)
[2025-05-30] MEDS ORDERED: Acetaminophen Soln 650 MG/20.3 ML UD Cup PO ONE (09:00)
[2025-05-30] MEDS ORDERED: Midazolam 1 MG/ML 2 ML SDV ONE (09:19)
[2025-05-30] MEDS ORDERED: propofoL 500 MG/50 ML 50 ML ONE ×2 (09:19→11:05)
[2025-05-30] MEDS ORDERED: Ondansetron 4 MG/2 ML SDV ONE (09:19)
[2025-05-30] MEDS ORDERED: Lidocaine 1% 4 ML ONE (09:19)
[2025-05-30] MEDS ORDERED: Phenylephrine 1% 10 MG/ML SDV ONE (10:35)
[2025-05-30] MEDS ORDERED: Lactated Ringers 1,000 ML IV ONE (11:30)
[2025-05-30] MEDS: Morphine 8 MG, EPINEPHrine 0.3 MG, Cefuroxime 750 MG, Ketorolac 30 MG, Sodium Chloride ... PRN (11:30)
[2025-05-30 17:24] VITALS: BP 110/68; PULSE 72
== END 2025-05-30 16:20 | disposition home or self-care (01) ==
LOC: JD.SDS 08:02
PROVIDERS: ATTEND Orthopaedic Surgery
DX: M16.11 Unilateral primary osteoarthritis, right hip (principal); I12.9 Hypertensive chronic kidney disease with stage 1 through stage 4 chronic kidney disease, or unspecified chronic kidney disease; N18.31 Chronic kidney disease, stage 3a; E03.9 Hypothyroidism, unspecified; K21.9 Gastro-esophageal reflux disease without esophagitis; E78.5 Hyperlipidemia, unspecified; E66.9 Obesity, unspecified; Z88.2 Allergy status to sulfonamides; Z88.1 Allergy status to other antibiotic agents; Z68.33 Body mass index [BMI] 33.0-33.9, adult; Z79.890 Hormone replacement therapy; Z79.899 Other long term (current) drug therapy
CPT/HCPCS: 0055T; 27130; 73501; 97116; 97161; A9270; C1713; C1776; J0169; J0690; J0697; J1885; J2003; J2250; J2272; J2371; J2405; J2704; J3373; J7120; 01214